=== PATIENT | male | born 1980 | race Caucasian/White ===

== ENCOUNTER 2017-01-14 05:38 | Emergency (ER) | payer OTHER ==
[~2017-01-14] VITALS: Ht 180.3 cm; Wt 69.1 kg
[~2017-01-14 05:38] MED LIST: ATV/1 PO; CITA20TA9 PO; GABA800T PO; MTR800 PO
[2017-01-14 05:43] VITALS: TEMP 37; Ht 180.3 cm; Wt 69.1 kg
[2017-01-14] MEDS ORDERED: LORAZEPAM 1 MG TAB SL STA ×3 (06:08→12:14)
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
[2017-01-14 06:24] LABS: BASO % 0.2 %; BASO ABS # 0.02 K/uL (0-0.2); COMPLETE YES; EOS % 1.7 %; HEMATOCRIT 46.6 % (42-52); IG% 0.3 %; LYMPH % 29.7 %; LYMPH ABS # 3.06 K/uL (1.2-3.4); MEAN CELL VOLUME 96.9 fL (80-100); MEAN CORPUSCULAR HEMOGLOBIN 32.8 pg (25-34); MEAN CORPUSCULAR HGB CONC 33.9 g/dl (32-36); MEAN PLATELET VOLUME 8.8 fL (7.4-10.4); MONO % 6.7 %; NEUT % 61.4 %; PLATELET COUNT 296 K/uL (130-400); RED BLOOD COUNT 4.81 M/uL (4.7-6.1)
[2017-01-14] MEDS ORDERED: BUPR1SUB23 SL (06:39)
[2017-01-14] MEDS ORDERED: GABA-113 PO (06:40)
[2017-01-14 06:41] LABS: URINE APPEARANCE CLEAR (CLEAR); URINE BILIRUBIN NEG (NEG); URINE COLOR DK YELLOW; URINE EPITHELIAL CELL AUTO 0-5 /lpf (0-5); URINE NITRITE NEG (NEG); URINE PH 6.5 (4.5-7.5); URINE SPECIFIC GRAVITY 1.026 (1.000-1.030); UROBILINOGEN NEG (NEG); ZZUR CULT IF INDIC CLEAN CATCH NO
[2017-01-14] MEDS ORDERED: VENL75CA PO (06:43)
[2017-01-14 06:44] LABS: MANUAL MICROSCOPIC REQUIRED? NO; REVIEW REQ? NO
[2017-01-14 06:46] LABS: BUN/CREATININE RATIO 15.5 (10-20); CALCIUM 8.9 mg/dl (8.5-10.1); CREATININE 1.03 mg/dl (0.60-1.40); POTASSIUM 3.9 mmol/L (3.5-5.1)
[2017-01-14 06:51] LABS: ACETAMINOPHEN < 2 ug/ml (10-30)
[2017-01-14 06:57] LABS: ALB/GLOB RATIO 0.8 (0.9-2); THYROID STIMULATING HORMONE 6.97 uIu/ml (0.300-4.500)
[2017-01-14 07:07] LABS: BENZODIAZEPINE, URINE NEG (NEG); COCAINE,URINE NEG (NEG); PHENCYCLIDINE, URINE NEG (NEG)
[2017-01-14] MEDS ORDERED: NICOTINE 21 MG/24 HR TDSY TD STA (08:29)
[2017-01-14] MEDS ORDERED: NICOTINE POLACRILEX 2 MG GUM MT STA (08:29)
[2017-01-14] MEDS ORDERED: CLONIDINE HCL 0.3 MG/24 HR TRANSDERM SYS TD STA (08:29)
[2017-01-14 12:50] VITALS: BP 141/84; PULSE 95; O2SAT 99
[2017-01-16 01:45] LABS: COD UR NEGATIVE NG/ML (CUTOFF=50); HYDROCOD UR NEGATIVE NG/ML (CUTOFF=50); HYDROMOR UR NEGATIVE NG/ML (CUTOFF=50); MORPHINE UR 215 NG/ML (CUTOFF=50); NORHYDROCODONE CONF UR NEGATIVE NG/ML (CUTOFF=50); OXYMORPH UR NEGATIVE NG/ML (CUTOFF=50)
== END 2017-01-14 12:50 ==
LOC: C.EDB 05:39 → C.EDA 12:50
DX: R45.851 Suicidal ideations (principal); F32.9 Major depressive disorder, single episode, unspecified; F41.9 Anxiety disorder, unspecified; F19.10 Other psychoactive substance abuse, uncomplicated; F43.10 Post-traumatic stress disorder, unspecified; Z83.3 Family history of diabetes mellitus; F17.200 Nicotine dependence, unspecified, uncomplicated

== ENCOUNTER 2017-02-27 20:06 | Emergency (ER) | payer OTHER ==
[~2017-02-27] VITALS: Ht 180.3 cm; Wt 65.2 kg
[~2017-02-27 20:06] MED LIST changes: -ATV/1 PO; +BUPR1SUB23 SL; -CITA20TA9 PO; +GABA-113 PO; -GABA800T PO
[2017-02-27 20:09] VITALS: TEMP 36.5; Ht 180.3 cm; Wt 65.2 kg
[2017-02-27] MEDS ORDERED: LORAZEPAM 1 MG TAB SL STA (20:23)
[2017-02-27] MEDS ORDERED: MULTI-VITAMIN INFUSION INJ 10 ML, THIAMINE HCL INJ 100 MG, FoLIC ACID INJ 1 MG in SODIU... IV ONE (20:30)
[2017-02-27] MEDS ORDERED: CLONIDINE HCL 0.1 MG TAB PO ONE (20:30)
[2017-02-27] MEDS ORDERED: CLONIDINE HCL 0.1 MG TAB ONE (20:33)
--- NOTE | 2017-02-27 20:47 | EMERGENCY ROOM VISIT NOTE ---
History Report prepared by Summer: Raudel Denton Under the Supervision of: Dr. Krishna Mahoney M.D. First contact with patient: 20:20 Chief Complaint: DETOX REQUEST Stated Complaint: DRUG AND ALCOHOL Nursing Triage Summary: states he missed his appt at the methadone clinic. requests detox tonight. has been using for a " long time." History of Present Illness The patient is a 36 year old male who presents to the Emergency Room with an episode of an opiate detox request today. Per friend, the patient has been going through some mental health, alcohol, and drug related issues for most of his life. He notes that the patient was talked into getting treatment today. The patient states that drug abuse is his primary concern, but notes that he also drinks alcohol occasionally. He notes that the last time he took an opiate was three days ago and reports that he injected it. The patient states that he is on a Methadone program, where he is currently taking 35mg of Methadone daily. He notes that he missed today and has been feeling bad--withdrawing. He reports that he drank three beers about eight hours ago because he missed his methadone treatment. He notes that he was admitted as an inpatient for drug and alcohol abuse five years ago. He complains of irritability and a sore throat, but denies any suicidal ideations. Source of History: patient Onset: today Position: other (global) Quality: other (opiate detox request) Timing: other (an episode) Associated Symptoms: + sorethroat Note: He complains of opiate abuse, mild alcohol consumption, and irritability. He denies any suicidal ideations. Review of Systems See HPI for pertinent positives & negatives. A total of 10 systems reviewed and were otherwise negative. Past Medical & Surgical Medical Problems: (1) Alcohol abuse (2) Anxiety (3) Chronic intravenous drug abuse (4) Chronic pain related to pelvic fracture (5) Opioid abuse (6) PTSD (post-traumatic stress disorder) (7) Spontaneous pneumothorax (8) Tobacco abuse Surgical Problems: (1) Total replacement of hip Family History Diabetes mellitus FHx: cancer Social History Smoking Status: Current Every Day Smoker Alcohol Use: occasionally Drug Use: other Marital Status: single Housing Status: unknown Occupation Status: unemployed Current/Historical Medications Scheduled Buprenorphine Hcl-Naloxone Hcl (Suboxone 8-2 Mg), 8 MG SL BID Gabapentin (Neurontin), 300 MG PO TID Scheduled PRN Ibuprofen (Ibuprofen), 800 MG PO Q8 PRN for Pain Allergies Coded Allergies: Penicillins (Verified Allergy, Unknown, 01/30/17) Cephalexin (Verified Adverse Reaction, Unknown, gi symptoms, 01/30/17) pt Physical Exam Vital Signs Date Time Temp Pulse Resp B/P (MAP) Pulse Ox O2 Delivery O2 Flow Rate FiO2 02/27/17 23:01 73 18 113/70 98 Room Air 02/27/17 22:09 80 18 130/78 99 Room Air 02/27/17 21:09 78 02/27/17 21:02 99 Room Air 02/27/17 20:58 80 20 119/72 98 02/27/17 20:09 36.5 86 18 131/62 94 Room Air Physical Exam GENERAL: Patient is in no acute distress. Alcohol on his breath. HEENT: No acute trauma, normocephalic atraumatic, mucous membranes moist, no nasal congestion, no scleral icterus. NECK: No stridor, no adenopathy, no meningismus, trachea is midline. LUNGS: Clear to auscultation bilaterally, no wheeze, no rhonchi, breath sounds equal. HEART: Without murmurs gallops or rubs, regular rate and rhythm. ABDOMEN: Soft, nontender, bowel sounds positive, no hernias, no peritonitis. EXTREMITIES: No cyanosis or edema, full range of motion of all the joints without pain or difficulty, no signs for acute trauma. NEUROLOGIC: Oriented x 3, no acute motor or sensory deficits, no focal weakness. Moderately intoxicated with alcohol, slight speech slur. SKIN: No rash, no jaundice, no diaphoresis. PSYCH: Denies suicidality, voluntary, cooperative. Medical Decision & Procedures Laboratory Results 02/27/17 20:40 02/27/17 20:40 Test 02/27/17 20:40 02/27/17 20:43 Red Blood Count 4.38 M/uL (4.7-6.1) Mean Corpuscular Volume 94.5 fL (80-100) Mean Corpuscular Hemoglobin 32.6 pg (25-34) Mean Corpuscular Hemoglobin Concent 34.5 g/dl (32-36) RDW Standard Deviation 43.1 fL (36.4-46.3) RDW Coefficient of Variation 12.5 % (11.5-14.5) Mean Platelet Volume 8.8 fL (7.4-10.4) Anion Gap 9.0 mmol/L (3-11) Est Creatinine Clear Calc Drug Dose 97.0 ml/min Estimated GFR () 114.7 Estimated GFR (Non- 99.0 BUN/Creatinine Ratio 17.9 (10-20) Calcium Level 9.0 mg/dl (8.5-10.1) Total Bilirubin 0.8 mg/dl (0.2-1) Aspartate Amino Transf (AST/SGOT) 89 U/L (15-37) Alanine Aminotransferase (ALT/SGPT) 68 U/L (12-78) Alkaline Phosphatase 114 U/L (45-117) Total Protein 7.9 gm/dl (6.4-8.2) Albumin 3.9 gm/dl (3.4-5.0) Globulin 4.0 gm/dl (2.5-4.0) Albumin/Globulin Ratio 1.0 (0.9-2) Thyroid Stimulating Hormone (TSH) 2.500 uIu/ml (0.300-4.500) Salicylates Level 1.9 mg/dl (2.8-20) Acetaminophen Level < 2 ug/ml (10-30) Ethyl Alcohol mg/dL 36.8 mg/dl (0-3) Laboratory results reviewed by me. Medications Administered Medications (Trade) Dose Ordered Sig/Ren Route Start Time Stop Time Status Last Admin Dose Admin Multivitamins 10 ml/Thiamine HCl 100 mg/Folic Acid 1 mg/Sodium Chloride 1,011.2 ml @ 500 mls/ hr Q2H2M ONCE IV 02/27/17 20:30 02/27/17 22:31 DC 02/27/17 20:54 500 MLS/HR Clonidine HCl (Catapres Tab) 0.1 mg NOW ONCE PO 02/27/17 20:30 02/27/17 20:31 DC 02/27/17 20:44 0.1 MG Lorazepam (Ativan Tab) 1 mg NOW STAT SL 02/27/17 20:23 02/27/17 20:28 DC 02/27/17 20:44 1 MG ED Course 2020: The patient was evaluated in room A7. A complete history and physical exam was performed. 2022: Lorazepam 1mg SL, Clonidine HCl 0.1mg PO 4: I reevaluated the patient. He is currently sleeping. 0030: The patient was signed out to Dr. Glover at the change of shift. Medical Decision Differential diagnoses include: drug and alcohol abuse, alcohol intoxication, dehydration, electrolyte imbalance, suicidal ideation and infection. There is no leukocytosis or concerning anemia. No significant electrolyte abnormality, kidney failure or hepatitis. The patient appears to be in a euthyroid state. Aspirin and Tylenol levels were not significantly elevated. Alcohol level was elevated slightly, consistent with his alcohol use today. Urine tox is pending as the patient has not provided a urine sample. The patient was not suicidal. He did want care though for his drug and alcohol addiction. He received a liter of IV saline combined with multivitamins, thiamine and folate. He received oral clonidine and oral Ativan. The patient has done well, he is currently sleeping. The psychiatric case management team is aware and will be assessing the patient once he is more sober. The patient's case is being assumed by Dr. Glover. He has assumed care at the change of shift. Medication Reconcilliation Current Medication List: was personally reviewed by me Blood Pressure Screening Patient's blood pressure: Elevated blood pressure Blood pressure disposition: Elevated BP felt to be situational Impression Primary Impression: Drug abuse Additional Impression: Alcohol abuse Scribe Attestation The scribe's documentation has been prepared under my direction and personally reviewed by me in its entirety. I confirm that the note above accurately reflects all work, treatment, procedures, and medical decision making performed by me. Departure Information Dispostion Still a Patient (The patient was signed out to Dr. Glover at the change of shift.) Referrals No Doctor, Assigned (PCP) Patient Instructions My [facility] Problem Qualifiers
[2017-02-27 21:02] VITALS: O2SAT 99
[2017-02-27 21:02] LABS: HEMATOCRIT 41.4 % (42-52); MEAN CELL VOLUME 94.5 fL (80-100); MEAN CORPUSCULAR HEMOGLOBIN 32.6 pg (25-34); MEAN CORPUSCULAR HGB CONC 34.5 g/dl (32-36); MEAN PLATELET VOLUME 8.8 fL (7.4-10.4); PLATELET COUNT 239 K/uL (130-400); RED BLOOD COUNT 4.38 M/uL (4.7-6.1); WHITE BLOOD COUNT 6.95 K/uL (4.8-10.8)
[2017-02-27 21:20] LABS: BUN/CREATININE RATIO 17.9 (10-20); CREATININE 0.99 mg/dl (0.60-1.40); POTASSIUM 3.4 mmol/L (3.5-5.1)
[2017-02-27 21:23] LABS: ACETAMINOPHEN < 2 ug/ml (10-30)
[2017-02-27 21:31] LABS: THYROID STIMULATING HORMONE 2.5 uIu/ml (0.300-4.500)
[2017-02-28 03:35] LABS: URINE APPEARANCE CLEAR (CLEAR); URINE BILIRUBIN NEG (NEG); URINE COLOR YELLOW; URINE NITRITE NEG (NEG); URINE PH 5.5 (4.5-7.5); URINE SPECIFIC GRAVITY 1.011 (1.000-1.030); UROBILINOGEN NEG (NEG); ZZUR CULT IF INDIC CLEAN CATCH NO
[2017-02-28 03:46] LABS: MANUAL MICROSCOPIC REQUIRED? NO; REVIEW REQ? NO
[2017-02-28 03:56] LABS: BENZODIAZEPINE, URINE POS (NEG); COCAINE,URINE NEG (NEG); PHENCYCLIDINE, URINE NEG (NEG)
--- NOTE | 2017-02-28 04:49 | EMERGENCY ROOM VISIT NOTE ---
ED Visit Note First contact with patient: 01:50 Patient seen and evaluated at 4:48 AM. Patient has discussed this evaluation with the crisis counselor and he would like to go to detox. Patient is currently in no distress no suicidal or homicidal ideation. Crisis counselor states that the patient has an uninsured status and will be given outpatient forms for him to contact rehabilitation. Patient is stable for discharge at 4: 55 AM Problem List Medical Problems: (1) Alcohol abuse Status: Chronic (2) Anxiety Status: Chronic (3) Chronic intravenous drug abuse Status: Chronic (4) Chronic pain related to pelvic fracture Status: Chronic (5) Opioid abuse Status: Chronic (6) PTSD (post-traumatic stress disorder) Status: Chronic (7) Spontaneous pneumothorax Status: Resolved (8) Tobacco abuse Status: Chronic Surgical Problems: (1) Total replacement of hip Status: Resolved Current/Historical Medications Scheduled Buprenorphine Hcl-Naloxone Hcl (Suboxone 8-2 Mg), 8 MG SL BID Gabapentin (Neurontin), 300 MG PO TID Scheduled PRN Ibuprofen (Ibuprofen), 800 MG PO Q8 PRN for Pain Allergies Coded Allergies: Penicillins (Verified Allergy, Unknown, 01/30/17) Cephalexin (Verified Adverse Reaction, Unknown, gi symptoms, 01/30/17) pt Vital Signs Date Time Temp Pulse Resp B/P (MAP) Pulse Ox O2 Delivery O2 Flow Rate FiO2 02/28/17 03:02 80 122/73 02/28/17 02:01 79 18 116/76 96 Room Air 02/28/17 01:26 74 02/28/17 01:05 76 18 122/83 96 Room Air 02/28/17 00:05 81 18 125/82 98 Room Air 02/27/17 23:01 73 18 113/70 98 Room Air 02/27/17 22:09 80 18 130/78 99 Room Air 02/27/17 21:09 78 02/27/17 21:02 99 Room Air 02/27/17 20:58 80 20 119/72 98 02/27/17 20:09 36.5 86 18 131/62 94 Room Air Laboratory Results 02/27/17 20:40 02/27/17 20:40 Test 02/27/17 20:40 02/27/17 20:43 02/28/17 03:21 Red Blood Count 4.38 M/uL (4.7-6.1) Mean Corpuscular Volume 94.5 fL (80-100) Mean Corpuscular Hemoglobin 32.6 pg (25-34) Mean Corpuscular Hemoglobin Concent 34.5 g/dl (32-36) RDW Standard Deviation 43.1 fL (36.4-46.3) RDW Coefficient of Variation 12.5 % (11.5-14.5) Mean Platelet Volume 8.8 fL (7.4-10.4) Anion Gap 9.0 mmol/L (3-11) Est Creatinine Clear Calc Drug Dose 97.0 ml/min Estimated GFR () 114.7 Estimated GFR (Non- 99.0 BUN/Creatinine Ratio 17.9 (10-20) Calcium Level 9.0 mg/dl (8.5-10.1) Total Bilirubin 0.8 mg/dl (0.2-1) Aspartate Amino Transf (AST/SGOT) 89 U/L (15-37) Alanine Aminotransferase (ALT/SGPT) 68 U/L (12-78) Alkaline Phosphatase 114 U/L (45-117) Total Protein 7.9 gm/dl (6.4-8.2) Albumin 3.9 gm/dl (3.4-5.0) Globulin 4.0 gm/dl (2.5-4.0) Albumin/Globulin Ratio 1.0 (0.9-2) Thyroid Stimulating Hormone (TSH) 2.500 uIu/ml (0.300-4.500) Salicylates Level 1.9 mg/dl (2.8-20) Acetaminophen Level < 2 ug/ml (10-30) Ethyl Alcohol mg/dL 36.8 mg/dl (0-3) Urine Color YELLOW Urine Appearance CLEAR (CLEAR) Urine pH 5.5 (4.5-7.5) Urine Specific [place] 1.011 (1.000-1.030) Urine Protein NEG (NEG) Urine Glucose (UA) NEG (NEG) Urine Ketones NEG (NEG) Urine Occult Blood NEG (NEG) Urine Nitrite NEG (NEG) Urine Bilirubin NEG (NEG) Urine Urobilinogen NEG (NEG) Urine Leukocyte Esterase NEG (NEG) Urine Opiates Screen NEG (NEG) Urine Methadone, Qualitative POS (NEG) Urine Barbiturates NEG (NEG) Urine Phencyclidine (PCP) Level NEG (NEG) Ur Amphetamine/Methamphetamine POS (NEG) MDMA (Ecstasy) Screen NEG (NEG) Urine Benzodiazepines Screen POS (NEG) Urine Cocaine Metabolite NEG (NEG) Urine Marijuana (THC) NEG (NEG) Medications Administered Medications (Trade) Dose Ordered Sig/Ren Route Start Time Stop Time Status Last Admin Dose Admin Multivitamins 10 ml/Thiamine HCl 100 mg/Folic Acid 1 mg/Sodium Chloride 1,011.2 ml @ 500 mls/ hr Q2H2M ONCE IV 02/27/17 20:30 02/27/17 22:31 DC 02/27/17 20:54 500 MLS/HR Clonidine HCl (Catapres Tab) 0.1 mg NOW ONCE PO 02/27/17 20:30 02/27/17 20:31 DC 02/27/17 20:44 0.1 MG Lorazepam (Ativan Tab) 1 mg NOW STAT SL 02/27/17 20:23 02/27/17 20:28 DC 02/27/17 20:44 1 MG Departure Information Impression Primary Impression: Drug abuse Additional Impression: Alcohol abuse Dispostion Still a Patient Referrals No Doctor, Assigned (PCP) Patient Instructions [facility] Problem Qualifiers
[2017-02-28 05:06] VITALS: BP 136/74; PULSE 85; O2SAT 98
== END 2017-02-28 05:07 | disposition home or self-care (01) ==
LOC: C.EDB 20:08 → C.EDA 02-28 05:07
DX: F11.10 Opioid abuse, uncomplicated (principal); F10.10 Alcohol abuse, uncomplicated; G89.29 Other chronic pain; F17.200 Nicotine dependence, unspecified, uncomplicated; Z96.649 Presence of unspecified artificial hip joint; Z83.3 Family history of diabetes mellitus; Z80.9 Family history of malignant neoplasm, unspecified

== ENCOUNTER 2017-03-27 15:43 | Inpatient (IN) | payer OTHER ==
[~2017-03-27] VITALS: Ht 180.3 cm; Wt 62.0 kg
[2017-03-27] MEDS ORDERED: LORAZEPAM 1 MG TAB SL STA (16:11)
[2017-03-27] MEDS ORDERED: METH10TA2 PO (16:28)
[2017-03-27 17:05] LABS: ALBUMIN 3.9 gm/dl (3.4-5.0); CREATININE 0.97 mg/dl (0.60-1.40); POTASSIUM 4.1 mmol/L (3.5-5.1)
[2017-03-27 17:22] LABS: BASO % 0.2 %; BASO ABS # 0.02 K/uL (0-0.2); EOS ABS # 0.08 K/uL (0-0.5); HEMATOCRIT 42.2 % (42-52); HEMOGLOBIN 14.3 g/dL (14.0-18.0); IG# 0.01 K/uL (0.00-0.02); LYMPH % 17.9 %; LYMPH ABS # 1.49 K/uL (1.2-3.4); MEAN CELL VOLUME 96.6 fL (80-100); MEAN CORPUSCULAR HEMOGLOBIN 32.7 pg (25-34); MEAN CORPUSCULAR HGB CONC 33.9 g/dl (32-36); MEAN PLATELET VOLUME 9.2 fL (7.4-10.4); MONO % 5.9 %; MONO ABS # 0.49 K/uL (0.11-0.59); NEUT % 74.9 %; NEUT ABS # 6.23 K/uL (1.4-6.5); PLATELET COUNT 233 K/uL (130-400); RED CELL DISTRIBUTION WIDTH CV 12.7 % (11.5-14.5); RED CELL DISTRIBUTION WIDTH SD 44.3 fL (36.4-46.3); WHITE BLOOD COUNT 8.32 K/uL (4.8-10.8)
[2017-03-27 18:38] VITALS: O2SAT 98
[2017-03-27] MEDS ORDERED: NURSING VERBAL MED ORDER ONE (18:45)
[2017-03-27] MEDS ORDERED: hydrOXYzine HCL 25 MG TAB PO PRN (19:00)
[2017-03-27] MEDS ORDERED: ALUMINUM/MAGNESIUM SUSP 30 ML UDC PO PRN (19:00)
[2017-03-27] MEDS ORDERED: ACETAMINOPHEN 325 MG TAB PO PRN (19:00)
[2017-03-27] MEDS ORDERED: MAGNESIUM HYDROXIDE SUSP 30 ML UDC PO PRN (19:00)
[2017-03-27] MEDS ORDERED: BISMUTH SUBSALICYLATE PER ML OMNICELL CHARGE PO PRN (19:00)
[2017-03-27] MEDS ORDERED: SODIUM CHLORIDE 0.65% NA SOLN 45 ML (OCEAN) PRN (19:00)
--- NOTE | 2017-03-27 19:15 | NUR ---
Pt presented to the ER via police after making suicidal statements to his mother, who wrote a 302 petitioning statement. As pt was unwilling to sign in voluntarily, he was admitted to the unit on a 302 involuntary commitment at 1835 and started on suicide precautions. Pt has been uncooperative both in the ER and on the unit. When asked to participate in the admission interview process, pt declined asking staff to "leave me alone". He is irritable, with underlying agitation. He was started on the AWSS protocol, as he does admit to drinking alcohol, but refused to discuss the details. He also admits to a long history of substance abuse. Since admission, pt has been in his room with the door closed and refusing to interact with staff.
[2017-03-27 20:03] VITALS: BP 117/68; PULSE 86; TEMP 37; BMI 19.1
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
[2017-03-27 22:08] VITALS: BP 110/64; PULSE 75; TEMP 36.7
[2017-03-27 23:06] VITALS: Ht 180.3 cm; Wt 62.0 kg
--- NOTE | 2017-03-28 02:25 | NUR ---
Patient's admission orders were reviewed.
[2017-03-28 06:53] VITALS: BP_SYST 101; BP_SYST 111; BP_DIAS 68; BP_DIAS 71; PULSE 61; PULSE 69; TEMP 36.6
--- NOTE | 2017-03-28 09:10 | NUR ---
Spoke with [facility] to confirm Methadone dose. The nurse stated last dose was given on 03/25 and was 45 mg. He should continue at this dose unless he misses a dose today and then he will need to decrease his dose if he does not get it today due to being off of it for 3 days.
[2017-03-28] MEDS ORDERED: LORAZEPAM 1 MG TAB PO PRN (09:30)
--- NOTE | 2017-03-28 10:00 | NUR ---
Pt's Father's girlfriend, Carmen, stopped by on the unit. This nurse spoke to her. Carmen stated pt's father has stage IV lung cancer with mets to bone and was told he had approximately 5 months left to live as of January. Carmen reported pt's father fell yesterday resulting in broken femur. Pt not eligible for surgery and is currently hospitalized here in room 376. Carmen also stated plans were for pt to be transferred to a assisted post discharge on hospice and father would be bedridden remainder of life. Pt currently irritable and unpredictable at this point. It was decided by staff that news of pt's father would be given after Methadone given and pt less irritable and stable. Pt has remained in his room all morning.
[2017-03-28] MEDS ORDERED: IBUPROFEN 600 MG TAB PO PRN (10:15)
[2017-03-28] MEDS: METHADONE HCL 10 MG TAB PO SCH (10:28)
[2017-03-28] MEDS ORDERED: NICOTINE POLACRILEX 2 MG GUM MT PRN (10:30)
[2017-03-28 10:32] VITALS: BP 120/78; PULSE 63; TEMP 36.9
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
[2017-03-28 12:29] VITALS: BP 120/69; PULSE 71; TEMP 36.9
--- NOTE | 2017-03-28 12:56 | NUR ---
Dr. Pollard made aware of pt's father. Dr. Pollard stated if he continues to remain uncooperative he would be willing to speak to pt regarding his father since he responded well to him in am. Pt continues to remain irritable and agitated and started becoming uncooperative when attempts to complete TR and Social history.
[2017-03-28] MEDS: GABAPENTIN 300 MG CAP PO SCH ×2 (13:16→21:45)
[2017-03-28] MEDS: NICOTINE 21 MG/24 HR TDSY TD SCH (13:16)
[2017-03-28 16:17] VITALS: BP 118/74; PULSE 65; TEMP 36.7
--- NOTE | 2017-03-28 19:08 | NUR ---
Spoke with patient's girlfriend Hien for collateral. She does not have any safety concerns with potential discharge. She said he does not have access to guns. She does feel he needs outpatient follow-up to be set up before he leaves the hospital as he does not seem to be able to get this arranged on his own. She stressed that before he leaves the hospital (after he is discharged) he should go upstairs and visit his father who is terminally ill.
[2017-03-28 21:09] VITALS: BP 122/76; PULSE 70; TEMP 36.5
--- NOTE | 2017-03-28 22:23 | NUR ---
Pt has spent the majority of the evening in his room. He has been pleasant and appropriate when interacting with staff/peers. He continued to state feeling stomach upset r/t opiate withdrawal and declined supper. He did state he is feeling physically better as the evening has progressed. He took his HS meds without issue. He denies thoughts of self harm and is hopeful for discharge soon. He remains on suicide precautions.
[2017-03-29] MEDS: hydrOXYzine HCL 25 MG TAB PO PRN ×2 (00:40→01:45)
--- NOTE | 2017-03-29 00:42 | NUR ---
don states he has been awake for awhile now. he asked for a sleep med. kanika maldonado was provided for sleep aid.
--- NOTE | 2017-03-29 01:55 | NUR ---
don requested and received his repeat hs prn dose of vistaril for sleep aid. he remains to not feel sleepy yet. he is anticipating his discharge tomorrow.
--- NOTE | 2017-03-29 02:53 | NUR ---
don appeared to be asleep on 0230 rounds.
--- NOTE | 2017-03-29 04:22 | NUR ---
24 hour chart orders reviewed
[2017-03-29] MEDS: GABAPENTIN 300 MG CAP PO SCH (09:49)
[2017-03-29] MEDS: NICOTINE 21 MG/24 HR TDSY TD SCH (09:49)
[2017-03-29] MEDS: METHADONE HCL 10 MG TAB PO SCH (09:49)
[2017-03-29] MEDS ORDERED: GABA-113 PO (09:50)
[2017-03-29] MEDS ORDERED: ATR25 PO (09:50)
[2017-03-29] MEDS ORDERED: NICO21DI4 TD (09:50)
[2017-03-29] MEDS ORDERED: NCR2 MT (09:50)
--- NOTE | 2017-03-29 09:50 | NUR ---
Disch summary: Pt denies thoughts/intent to harm herself. She has been motivated for treatment. Has attended programming. is supportive. Depressive symptoms improving. Aftercare arranged. Pt completed safety plan. Is more hopeful with improved affect. Addendum: 03/29/17 at 1000 by Radha Gagnon RN disregard note. wrong pt.
[2017-03-29 09:51] VITALS: BP 134/83; PULSE 80; TEMP 36.5
--- NOTE | 2017-03-29 10:05 | NUR ---
Disch summary: Pt denies thoughts/intent to harm self. Pt was recently disch from rehab, is prescribed methadone out pt. He has follow up appts and contacts.
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
--- NOTE | 2017-03-29 11:15 | NUR ---
Pt disch home. Disch instructions provided, verbalized understanding. Belongings returned. Prescriptions given.
== END 2017-03-29 11:15 | disposition home or self-care (01) | DRG 897 ==
LOC: EDBD 15:43 → EDSEX 15:43 → C.EDA 15:44 → C.MHU 18:40
PROVIDERS: ADMIT Psychiatry & Neurology Psychiatry; ATTEND Psychiatry & Neurology Psychiatry
DX: F11.20 Opioid dependence, uncomplicated (principal); R45.851 Suicidal ideations; F17.210 Nicotine dependence, cigarettes, uncomplicated; Z79.899 Other long term (current) drug therapy; Z81.8 Family history of other mental and behavioral disorders

== ENCOUNTER 2017-08-01 09:19 | Emergency (ER) | payer OTHER ==
[~2017-08-01] VITALS: Ht 180.3 cm; Wt 66.6 kg
[~2017-08-01 09:19] MED LIST changes: +ATR25 PO; -BUPR1SUB23 SL; +METH10TA2 PO; +NCR2 MT; +NICO21DI4 TD
[2017-08-01 09:26] VITALS: TEMP 36.9; Ht 180.3 cm; Wt 66.6 kg
[2017-08-01] MEDS ORDERED: LORAZEPAM 1 MG TAB SL STA (09:36)
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
[2017-08-01] MEDS ORDERED: ONDANSETRON 4MG OD TAB PO ONE (09:45)
--- NOTE | 2017-08-01 10:04 | DIAGNOSTIC IMAGING REPORT ---
CHEST ONE VIEW PORTABLE HISTORY: 36 years-old Male Overdose acute drug overdose COMPARISON: Chest radiograph 09/07/2014 TECHNIQUE: Portable AP view of the chest FINDINGS: Cardiomediastinal and hilar silhouettes are within normal limits. No pneumothorax, pleural effusion, focal airspace consolidation or overt pulmonary edema. Bones of the chest appear grossly intact. IMPRESSION: No acute process. The above report was generated using voice recognition software. It may contain grammatical, syntax or spelling errors. Electronically signed by: Ash Carmen M.D. 08/01/2017 10:03 AM Dictated Date/Time: 08/01/2017 10:02 AM
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
[2017-08-01 10:32] LABS: BASO % 0.2 %; BASO ABS # 0.02 K/uL (0-0.2); EOS % 0.2 %; EOS ABS # 0.02 K/uL (0-0.5); HEMATOCRIT 41.2 % (42-52); HEMOGLOBIN 14.4 g/dL (14.0-18.0); IG# 0.01 K/uL (0.00-0.02); LYMPH ABS # 0.97 K/uL (1.2-3.4); MEAN CELL VOLUME 93.2 fL (80-100); MEAN CORPUSCULAR HEMOGLOBIN 32.6 pg (25-34); MEAN PLATELET VOLUME 8.7 fL (7.4-10.4); MONO ABS # 0.73 K/uL (0.11-0.59); NEUT % 78.5 %; NEUT ABS # 6.33 K/uL (1.4-6.5); PLATELET COUNT 236 K/uL (130-400); RED CELL DISTRIBUTION WIDTH CV 13.3 % (11.5-14.5); RED CELL DISTRIBUTION WIDTH SD 45.8 fL (36.4-46.3); WHITE BLOOD COUNT 8.08 K/uL (4.8-10.8)
[2017-08-01] MEDS ORDERED: GABA-113 PO (10:34)
[2017-08-01] MEDS ORDERED: NICO4GUM7 MT (10:34)
[2017-08-01] MEDS ORDERED: HYDR-3124 PO ×2 (10:34)
[2017-08-01] MEDS ORDERED: NICO21DI35 TD (10:34)
[2017-08-01 10:42] LABS: PTT PATIENT 27.8 SECONDS (21.0-31.0)
[2017-08-01 10:52] LABS: ALBUMIN 4.1 gm/dl (3.4-5.0); ALT/SGPT 42 U/L (12-78); AST/SGOT 43 U/L (15-37); BLOOD UREA NITROGEN 15 mg/dl (7-18); CALCIUM 9.2 mg/dl (8.5-10.1); CARBON DIOXIDE 25 mmol/L (21-32); CREATININE 0.89 mg/dl (0.60-1.40); GLUCOSE 88 mg/dl (70-99); LIPASE 53 U/L (73-393); POTASSIUM 3.8 mmol/L (3.5-5.1); SODIUM 135 mmol/L (136-145)
[2017-08-01 10:57] LABS: ALKALINE PHOSPHATASE 97 U/L (45-117); CKMB 4.1 ng/ml (0.5-3.6); TOTAL PROTEIN 7.9 gm/dl (6.4-8.2)
[2017-08-01 12:42] VITALS: BP 113/73; PULSE 108; O2SAT 98
== END 2017-08-01 12:44 | disposition home or self-care (01) ==
LOC: C.EDB 09:20 → C.EDA 12:44
DX: S40.022A Contusion of left upper arm, initial encounter (principal); S40.021A Contusion of right upper arm, initial encounter; S20.419A Abrasion of unspecified back wall of thorax, initial encounter; Y04.0XXA Assault by unarmed brawl or fight, initial encounter; F11.20 Opioid dependence, uncomplicated; F32.9 Major depressive disorder, single episode, unspecified; Z91.14 Patient's other noncompliance with medication regimen; F41.9 Anxiety disorder, unspecified; F43.10 Post-traumatic stress disorder, unspecified; F17.200 Nicotine dependence, unspecified, uncomplicated; B19.20 Unspecified viral hepatitis C without hepatic coma; Z79.899 Other long term (current) drug therapy; Z88.0 Allergy status to penicillin; Z88.1 Allergy status to other antibiotic agents

== ENCOUNTER 2018-04-13 09:25 | Inpatient (IN) ==
[2018-04-13] MEDS ORDERED: SODIUM CHLORIDE 0.9% 1000ML 2,000 ML IV SCH (10:00)
--- NOTE | 2018-04-13 10:21 | XRay Report ---
XR chest 1V portable CLINICAL HISTORY: hypoxia, overdose dyspnea COMPARISON STUDY: 08/01/2017 FINDINGS: The bones soft tissues and hemidiaphragms are normal. The cardiomediastinal silhouette is n ormal. The lungs are clear. The pulmonary vasculature is normal. IMPRESSION: Negative chest. The above report was generated using voice recognition software. It may contain grammatical, syntax or spelling errors. Electronically signed by: Manohar Fontaine M.D. 04/13/2018 10:19 AM
[2018-04-13 10:22] LABS: Basophils # (auto) 0.03 K/uL (0-0.2); Basophils % (auto) 0.3 %; Eosinophils # (auto) 0.12 K/uL (0-0.5); Eosinophils % (auto) 1.1 %; Hematocrit (blood only) 43.7 % (42-52); Hemoglobin 14.8 g/dL (14.0-18.0); Immature Granulocytes # (auto) 0.02 K/uL (0.00-0.02); Immature Granulocytes % (auto) 0.2 %; Lymphocytes # (auto) 1.98 K/uL (1.2-3.4); Mean Corpuscular Hgb Conc 33.9 g/dL (32-36); Mean Corpuscular Volume 96.7 fL (80-100); Mean Platelet Volume 8.7 fL (7.4-10.4); Monocytes # (auto) 0.86 K/uL (0.11-0.59); Monocytes % (auto) 7.8 %; Neutrophils % (auto) 72.6 %; Platelet Count 222 K/uL (130-400); RDW Coefficient of Variation 12.9 % (11.5-14.5); RDW Standard Deviation 45.3 fL (36.4-46.3); Red Blood Count 4.52 M/uL (4.7-6.1); White Blood Count 11.01 K/uL (4.8-10.8)
[2018-04-13 10:40] LABS: Alanine Aminotransferase 64 U/L (12-78); Albumin Level 3.5 gm/dl (3.4-5.0); Aspartate Aminotransferase 158 U/L (15-37); BUN Creatinine Ratio 17.8 (10-20); Blood Urea Nitrogen 16 mg/dl (7-18); Calcium 8.5 mg/dl (8.5-10.1); Carbon Dioxide 27 mmol/L (21-32); Chloride 106 mmol/L (98-107); Creatinine Clr Calc Pharmacy 105.7 ml/min; Est GFR (Non-African American) 111.3; Glucose 71 mg/dl (70-99); Magnesium 2.5 mg/dl (1.8-2.4); Potassium 3.4 mmol/L (3.5-5.1); Sodium 140 mmol/L (136-145)
[2018-04-13 10:55] LABS: Alkaline Phosphatase 83 U/L (45-117); Bilirubin,Total 1.3 mg/dl (0.2-1); Creatine Kinase 4110 U/L (39-308); Creatine Kinase MB 46.6 ng/ml (0.5-3.6); Globulin 3.5 gm/dl (2.5-4.0); Troponin I < 0.015 ng/ml (0-0.045)
[2018-04-13 10:57] LABS: Acetaminophen < 2 ug/ml (10-30); Salicylate < 1.7 mg/dl (2.8-20)
[2018-04-13] MEDS ORDERED: SODIUM CHLORIDE 0.9% 1000ML 1,000 ML IV STA (11:02)
--- NOTE | 2018-04-13 11:24 | Emergency Department Note ---
Entered by Austin Vargas acting as a scribe for Rayray Vazquez MD ED Provider Note CHIEF COMPLAINT: Overdose HISTORY OF PRESENT ILLNESS: The patient is a 37 year old male presenting to the Emergency Department via EMS due to an overdose that occurred early this morning. The HPI is limited secondary to intoxication. Per nursing staff, after reading EMS report, the patient was found outside of a bank and states that the patient reports that last night he did two bags of K2, two bags of ecstasy, and consumed whiskey. Nursing also states that the patient has been a drug user for the past 20 years and has a history of meth and heroin use; his most recent use of meth being two days ago. Nursing also states that the patient has received 46 doses of Narcan in his lifetime. Pt denies any chest pain, nausea, vomiting, or abdominal pain. REVIEW OF SYSTEMS: See HPI for pertinent positives and negatives. ROS limited secondary to intoxication. PMHx/PSHx: Suicidal ideation, mood disorder, drug overdose, drug abuse, opioid abuse, acute renal failure, spontaneous pneumothorax, and PTSD. SOCIAL HISTORY: Patient lives at home. PHYSICAL EXAM: GENERAL: Sleepy, intoxicated, but arousable and in no distress. HENT: Normocephalic, atraumatic. Oropharynx unremarkable. EYES: Normal conjunctiva. Sclera non-icteric. NECK: Inspection normal. Non-tender. Supple. No nuchal rigidity. FROM. No masses. RESPIRATORY: Clear to auscultation. No wheezes. No rales. Normal respiratory effort. CARDIAC: Tachycardic. Normal rhythm. No murmurs. No rubs. Extremities warm and well perfused. Pulses equal. No JVD. GI: Soft, non-distended. No tenderness to palpation. No rebound or guarding. No masses. RECTAL: Deferred. MUSCULOSKELETAL: Atraumatic. Chest examination reveals no tenderness. The back is symmetrical on inspection without obvious abnormality. There is no CVA tenderness to palpation. No joint edema. Small 1 cm bruise and tenderness in left lumbar paraspinal area. LOWER EXTREMITIES: Calves are equal size bilaterally and non-tender. No edema. No discoloration. UPPER EXTREMITIES: Track tee and scattered bruising. NEURO: Altered sensorium. No sensory or motor deficits noted. SKIN: No rash or jaundice noted. EMERGENCY DEPARTMENT COURSE: 0943: Spoke with nursing who reported the patient has been a drug abuser for the past 20 years and was brought in via EMS after doing two bags of K2, two bags of ecstasy, and consuming whiskey. Past medical records reviewed. The patient was evaluated in room C3, and a complete history and physical examination were performed. 1103: I reassessed the patient and he is still intoxicated. 1113: I reviewed the patient's case with MYRANDA Schneider. Dr. Hartley, [facility], will evaluate the patient for further management. 1328: I spoke with Dr. aHrtley, [facility], and he stated that paramedics raised concern because the K2 has been associated with bleeding issues secondary to contamination with possible Warfarin like products. MEDICAL DECISION MAKING: Prior records/ancillary studies reviewed. Triage Nursing notes reviewed and agree them. Additional history obtained from EMS. The patient's history was concerning for altered mental status and probable overdose. Differential diagnosis: Etiologies such as toxicologic, infection, hypoglycemia, electrolyte abnormalities, cardiac sources, intracerebral event, neurologic, as well as others were entertained. Physical examination: The patient had altered sensorium. No trauma noted. ER treatment provided: IV NSS 2 L bolus IV hydration NSS 200 mL/hr Diagnostic interpretation by me: The electrocardiogram was negative for pathologic change. There was no QRS widening or interval prolongation. The labs revealed a mild leukocytosis on CBC. Chemistry panel was significant for rhabdomyolysis. Normal renal function. Lipase negative. Coags normal. Imaging studies: Chest x-ray was unremarkable. No acute disease. No pulmonary edema. The patient had a head CT performed and this was negative for intracranial pathology. The patient is altered. He admits to taking multiple substances. EMS raise concerns about the K2 being possibly tainted based upon reports from other incidents. Coags are currently normal. The patient has rhabdomyolysis. He is in need of hospitalization for further treatment to prevent serious medical complications. He is still requiring supplemental oxygen. Consultation: A consultation was placed with the hospitalist. The case was discussed and diagnostics were reviewed. The patient was evaluated in the ER for further treatment. IMPRESSION: Altered mental status, intentional drug overdose, rhabdomyolysis, hypoxia, lumbar back pain. PLAN: Admitted. Impression & Plan Drug overdose, Rhabdomyolysis, Hypoxia Past Med/Surg History Medical History Intravenous drug abuse, 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) PTSD (post-traumatic stress disorder) (Chronic) Spontaneous pneumothorax (Resolved) Opioid abuse (Chronic 08/21/12) Anxiety (Chronic) Pulmonary embolism (Resolved) Acute renal failure (Resolved) Alcohol abuse (Chronic) Alcohol intoxication (Resolved) Dehydration (Resolved) Depression (Chronic) Drug overdose (Resolved) Hepatitis C (Chronic) Nicotine dependence, cigarettes, uncomplicated (Chronic) Opioid use disorder, severe, dependence (Chronic) Stimulant intoxication (Resolved) Suicidal ideation (Resolved) Social History Current Living Situation: Family Other Information That Helps Us Care for You: No Feels Safe at Home: Yes Safety Concerns: Feels Safe At This Time Smoking Status: Current every day smoker Tobacco Type: cigarettes Tobacco Cessation Education Requested by Patient: No Hx Alcohol Use: Yes Alcohol type: beer Alcohol Intake Frequency: 3 or more drinks per day Beliefs That Will Affect Care: None Preferred Language: Frisian Communication Ability: Effective [employer] Area Supervisor Required: No Results & Data Vital Signs Vital Signs - 24 hr 04/13/18 09:37 04/13/18 09:45 04/13/18 10:08 Temperature 36.3 C L Temperature Source Oral Sepsis Recent Fever Within 48 Hours No Sepsis New/Unexplained Change in Mental Status No Sepsis Action Taken by Nursing No Action Required Pulse Rate 117 H Pulse Rate [Finger] Pulse Rhythm [Finger] Pulse Strength [Finger] Respiratory Rate 20 Respiratory Effort / Characteristics Respiratory Depth Respiratory Pattern Blood Pressure 144/84 H Blood Pressure [Left Arm] Blood Pressure [Right Arm] Blood Pressure Mean 104 Blood Pressure Mean [Left Arm] Blood Pressure Mean [Right Arm] Blood Pressure Position [Left Arm] Pulse Oximetry 97 88 L 88 L Oxygen Delivery Method Room Air Room Air Room Air Oxygen Flow Rate 2 04/13/18 10:55 04/13/18 11:37 04/13/18 12:33 Temperature Temperature Source Sepsis Recent Fever Within 48 Hours Sepsis New/Unexplained Change in Mental Status Sepsis Action Taken by Nursing Pulse Rate Pulse Rate [Finger] 98 H 80 80 Pulse Rhythm [Finger] Pulse Strength [Finger] Respiratory Rate 16 16 16 Respiratory Effort / Characteristics Respiratory Depth Respiratory Pattern Blood Pressure Blood Pressure [Left Arm] Blood Pressure [Right Arm] 116/77 126/78 111/82 Blood Pressure Mean Blood Pressure Mean [Left Arm] Blood Pressure Mean [Right Arm] 90 94 91 Blood Pressure Position [Left Arm] Pulse Oximetry 93 96 97 Oxygen Delivery Method Nasal Cannula Nasal Cannula Nasal Cannula Oxygen Flow Rate 2 2 2 04/13/18 14:13 04/13/18 14:46 04/13/18 15:09 Temperature 36.9 C 36.6 C Temperature Source Oral Oral Sepsis Recent Fever Within 48 Hours Sepsis New/Unexplained Change in Mental Status Sepsis Action Taken by Nursing Pulse Rate 72 Pulse Rate [Finger] 87 81 Pulse Rhythm [Finger] Regular Pulse Strength [Finger] Normal Respiratory Rate 16 16 18 Respiratory Effort / Characteristics Non-Labored Spontaneous Respiratory Depth Normal Respiratory Pattern Regular Blood Pressure 128/87 Blood Pressure [Left Arm] 124/87 Blood Pressure [Right Arm] 134/91 Blood Pressure Mean Blood Pressure Mean [Left Arm] 99 Blood Pressure Mean [Right Arm] 105 Blood Pressure Position [Left Arm] Lying Pulse Oximetry 96 100 99 Oxygen Delivery Method Room Air Room Air Room Air Oxygen Flow Rate 04/13/18 16:52 04/13/18 17:04 Temperature 36.2 C L Temperature Source Oral Sepsis Recent Fever Within 48 Hours Sepsis New/Unexplained Change in Mental Status Sepsis Action Taken by Nursing Pulse Rate 83 Pulse Rate [Finger] 96 H Pulse Rhythm [Finger] Regular Pulse Strength [Finger] Respiratory Rate 20 Respiratory Effort / Characteristics Non-Labored Spontaneous Respiratory Depth Normal Respiratory Pattern Regular Blood Pressure Blood Pressure [Left Arm] 145/98 H Blood Pressure [Right Arm] Blood Pressure Mean Blood Pressure Mean [Left Arm] 113 Blood Pressure Mean [Right Arm] Blood Pressure Position [Left Arm] Sitting Pulse Oximetry 98 Oxygen Delivery Method Room Air Oxygen Flow Rate Home Medications Current Medication List: was personally reviewed by me Laboratory Data Attestation: I reviewed the patient's lab results. Result diagrams: 04/13/18 10:03 04/13/18 15:06 Lab Results 04/13/18 04/13/18 04/13/18 Range/Units 10:03 10:03 10:03 WBC 11.01 H (4.8-10.8) K/uL RBC 4.52 L (4.7-6.1) M/uL Hgb 14.8 (14.0-18.0) g/dL Hct 43.7 (42-52) % MCV 96.7 (80-100) fL MCH 32.7 (25-34) pg MCHC 33.9 (32-36) g/dL RDW Std Deviation 45.3 (36.4-46.3) fL RDW Coeff of Agustin 12.9 (11.5-14.5) % Plt Count 222 (130-400) K/uL MPV 8.7 (7.4-10.4) fL Immature Gran % (Auto) 0.2 % Neut % (Auto) 72.6 % Lymph % (Auto) 18.0 % [place] % (Auto) 7.8 % Eos % (Auto) 1.1 % Baso % (Auto) 0.3 % Immature Gran # (Auto) 0.02 (0.00-0.02) K/uL Neut # (Auto) 8.00 H (1.4-6.5) K/uL Lymph # (Auto) 1.98 (1.2-3.4) K/uL [place] # (Auto) 0.86 H (0.11-0.59) K/uL Eos # (Auto) 0.12 (0-0.5) K/uL Baso # (Auto) 0.03 (0-0.2) K/uL PT (9.0-12.0) Seconds INR (0.9-1.1) Sodium (136-145) mmol/L Potassium (3.5-5.1) mmol/L Chloride (98-107) mmol/L Carbon Dioxide (21-32) mmol/L Anion Gap (3-11) BUN (7-18) mg/dl Creatinine (0.6-1.4) mg/dl Est Cr Clr Drug Dosing ml/min Est GFR ( Amer) Est GFR (Non-Af Amer) BUN/Creatinine Ratio (10-20) Glucose (70-99) mg/dl POC Glucose (70-99) Calcium (8.5-10.1) mg/dl Phosphorus (2.5-4.9) mg/dl Magnesium (1.8-2.4) mg/dl Total Bilirubin (0.2-1) mg/dl AST (15-37) U/L ALT (12-78) U/L Alkaline Phosphatase (45-117) U/L Total Creatine Kinase (39-308) U/L CK-MB (CK-2) (0.5-3.6) ng/ml CK/CKMB % Calc (0-3.0) Troponin I (0-0.045) ng/ml Total Protein (6.4-8.2) gm/dl Albumin (3.4-5.0) gm/dl Globulin (2.5-4.0) gm/dl Albumin/Globulin Ratio (0.9-2) Lipase (73-393) U/L Urine Color Urine Appearance (Clear) Urine pH (4.5-7.5) Ur Specific [place] (1.000-1.030) Urine Protein (Negative) Urine Glucose (UA) (Negative) Urine Ketones (Negative) Urine Blood (Negative) Urine Nitrite (Negative) Urine Bilirubin (Negative) Urine Urobilinogen (Negative) Ur Leukocyte Esterase (Negative) Urine WBC (Auto) (0-5) /hpf Urine RBC (Auto) (0-4) /hpf U Hyaline Cast (Auto) (0-5) /lpf U Epithel Cells (Auto) (0-5) /lpf Urine Bacteria (Auto) (Negative) Salicylates < 1.7 L (2.8-20) mg/dl Urine Opiates Screen (Neg) Ur Methadone, Qual (Neg) Acetaminophen < 2 L (10-30) ug/ml Urine Barbiturates (Neg) Ur Phencyclidine (PCP) (Neg) U Amphetamin/Meth Scrn (Neg) MDMA (Ecstasy) Screen (Neg) U Benzodiazepines Scrn (Neg) Ur Cocaine Metabolite (Neg) U Marijuana (THC) Screen (Neg) Ethyl Alcohol mg/dL < 3.0 (0-3) mg/dl 04/13/18 04/13/18 04/13/18 Range/Units 10:03 10:12 15:06 WBC (4.8-10.8) K/uL RBC (4.7-6.1) M/uL Hgb (14.0-18.0) g/dL Hct (42-52) % MCV (80-100) fL MCH (25-34) pg MCHC (32-36) g/dL RDW Std Deviation (36.4-46.3) fL RDW Coeff of Agustin (11.5-14.5) % Plt Count (130-400) K/uL MPV (7.4-10.4) fL Immature Gran % (Auto) % Neut % (Auto) % Lymph % (Auto) % [place] % (Auto) % Eos % (Auto) % Baso % (Auto) % Immature Gran # (Auto) (0.00-0.02) K/uL Neut # (Auto) (1.4-6.5) K/uL Lymph # (Auto) (1.2-3.4) K/uL [place] # (Auto) (0.11-0.59) K/uL Eos # (Auto) (0-0.5) K/uL Baso # (Auto) (0-0.2) K/uL PT 10.7 (9.0-12.0) Seconds INR 1.1 (0.9-1.1) Sodium 140 141 (136-145) mmol/L Potassium 3.4 L 3.9 (3.5-5.1) mmol/L Chloride 106 110 H (98-107) mmol/L Carbon Dioxide 27 25 (21-32) mmol/L Anion Gap 7.0 7.0 (3-11) BUN 16 14 (7-18) mg/dl Creatinine 0.88 0.83 (0.6-1.4) mg/dl Est Cr Clr Drug Dosing 105.7 108.9 ml/min Est GFR ( Amer) 129.0 132.1 Est GFR (Non-Af Amer) 111.3 114.0 BUN/Creatinine Ratio 17.8 16.2 (10-20) Glucose 71 55 L (70-99) mg/dl POC Glucose (70-99) Calcium 8.5 8.0 L (8.5-10.1) mg/dl Phosphorus 4.3 (2.5-4.9) mg/dl Magnesium 2.5 H 2.4 (1.8-2.4) mg/dl Total Bilirubin 1.3 H (0.2-1) mg/dl AST 158 H (15-37) U/L ALT 64 (12-78) U/L Alkaline Phosphatase 83 (45-117) U/L Total Creatine Kinase 4110 H 3686 H (39-308) U/L CK-MB (CK-2) 46.6 H (0.5-3.6) ng/ml CK/CKMB % Calc 1.1 (0-3.0) Troponin I < 0.015 (0-0.045) ng/ml Total Protein 7.0 (6.4-8.2) gm/dl Albumin 3.5 (3.4-5.0) gm/dl Globulin 3.5 (2.5-4.0) gm/dl Albumin/Globulin Ratio 1.0 (0.9-2) Lipase 53 L (73-393) U/L Urine Color Urine Appearance (Clear) Urine pH (4.5-7.5) Ur Specific [place] (1.000-1.030) Urine Protein (Negative) Urine Glucose (UA) (Negative) Urine Ketones (Negative) Urine Blood (Negative) Urine Nitrite (Negative) Urine Bilirubin (Negative) Urine Urobilinogen (Negative) Ur Leukocyte Esterase (Negative) Urine WBC (Auto) (0-5) /hpf Urine RBC (Auto) (0-4) /hpf U Hyaline Cast (Auto) (0-5) /lpf U Epithel Cells (Auto) (0-5) /lpf Urine Bacteria (Auto) (Negative) Salicylates (2.8-20) mg/dl Urine Opiates Screen (Neg) Ur Methadone, Qual (Neg) Acetaminophen (10-30) ug/ml Urine Barbiturates (Neg) Ur Phencyclidine (PCP) (Neg) U Amphetamin/Meth Scrn (Neg) MDMA (Ecstasy) Screen (Neg) U Benzodiazepines Scrn (Neg) Ur Cocaine Metabolite (Neg) U Marijuana (THC) Screen (Neg) Ethyl Alcohol mg/dL (0-3) mg/dl 04/13/18 04/13/18 04/13/18 Range/Units 16:10 16:10 16:42 WBC (4.8-10.8) K/uL RBC (4.7-6.1) M/uL Hgb (14.0-18.0) g/dL Hct (42-52) % MCV (80-100) fL MCH (25-34) pg MCHC (32-36) g/dL RDW Std Deviation (36.4-46.3) fL RDW Coeff of Agustin (11.5-14.5) % Plt Count (130-400) K/uL MPV (7.4-10.4) fL Immature Gran % (Auto) % Neut % (Auto) % Lymph % (Auto) % [place] % (Auto) % Eos % (Auto) % Baso % (Auto) % Immature Gran # (Auto) (0.00-0.02) K/uL Neut # (Auto) (1.4-6.5) K/uL Lymph # (Auto) (1.2-3.4) K/uL [place] # (Auto) (0.11-0.59) K/uL Eos # (Auto) (0-0.5) K/uL Baso # (Auto) (0-0.2) K/uL PT (9.0-12.0) Seconds INR (0.9-1.1) Sodium (136-145) mmol/L Potassium (3.5-5.1) mmol/L Chloride (98-107) mmol/L Carbon Dioxide (21-32) mmol/L Anion Gap (3-11) BUN (7-18) mg/dl Creatinine (0.6-1.4) mg/dl Est Cr Clr Drug Dosing ml/min Est GFR ( Amer) Est GFR (Non-Af Amer) BUN/Creatinine Ratio (10-20) Glucose (70-99) mg/dl POC Glucose 64 L* (70-99) Calcium (8.5-10.1) mg/dl Phosphorus (2.5-4.9) mg/dl Magnesium (1.8-2.4) mg/dl Total Bilirubin (0.2-1) mg/dl AST (15-37) U/L ALT (12-78) U/L Alkaline Phosphatase (45-117) U/L Total Creatine Kinase (39-308) U/L CK-MB (CK-2) (0.5-3.6) ng/ml CK/CKMB % Calc (0-3.0) Troponin I (0-0.045) ng/ml Total Protein (6.4-8.2) gm/dl Albumin (3.4-5.0) gm/dl Globulin (2.5-4.0) gm/dl Albumin/Globulin Ratio (0.9-2) Lipase (73-393) U/L Urine Color Dark Yellow Urine Appearance Clear (Clear) Urine pH 5.5 (4.5-7.5) Ur Specific [place] 1.021 (1.000-1.030) Urine Protein Negative (Negative) Urine Glucose (UA) Negative (Negative) Urine Ketones 1+ H (Negative) Urine Blood 3+ H (Negative) Urine Nitrite Negative (Negative) Urine Bilirubin Negative (Negative) Urine Urobilinogen Negative (Negative) Ur Leukocyte Esterase Negative (Negative) Urine WBC (Auto) 1-5 (0-5) /hpf Urine RBC (Auto) >30 H (0-4) /hpf U Hyaline Cast (Auto) 1-5 (0-5) /lpf U Epithel Cells (Auto) 5-10 H (0-5) /lpf Urine Bacteria (Auto) Negative (Negative) Salicylates (2.8-20) mg/dl Urine Opiates Screen Pos H (Neg) Ur Methadone, Qual Neg (Neg) Acetaminophen (10-30) ug/ml Urine Barbiturates Neg (Neg) Ur Phencyclidine (PCP) Neg (Neg) U Amphetamin/Meth Scrn Pos H (Neg) MDMA (Ecstasy) Screen Pos H (Neg) U Benzodiazepines Scrn Pos H (Neg) Ur Cocaine Metabolite Neg (Neg) U Marijuana (THC) Screen Pos H (Neg) Ethyl Alcohol mg/dL (0-3) mg/dl 04/13/18 04/13/18 04/13/18 Range/Units 16:44 16:58 17:30 WBC (4.8-10.8) K/uL RBC (4.7-6.1) M/uL Hgb (14.0-18.0) g/dL Hct (42-52) % MCV (80-100) fL MCH (25-34) pg MCHC (32-36) g/dL RDW Std Deviation (36.4-46.3) fL RDW Coeff of Agustin (11.5-14.5) % Plt Count (130-400) K/uL MPV (7.4-10.4) fL Immature Gran % (Auto) % Neut % (Auto) % Lymph % (Auto) % [place] % (Auto) % Eos % (Auto) % Baso % (Auto) % Immature Gran # (Auto) (0.00-0.02) K/uL Neut # (Auto) (1.4-6.5) K/uL Lymph # (Auto) (1.2-3.4) K/uL [place] # (Auto) (0.11-0.59) K/uL Eos # (Auto) (0-0.5) K/uL Baso # (Auto) (0-0.2) K/uL PT (9.0-12.0) Seconds INR (0.9-1.1) Sodium (136-145) mmol/L Potassium (3.5-5.1) mmol/L Chloride (98-107) mmol/L Carbon Dioxide (21-32) mmol/L Anion Gap (3-11) BUN (7-18) mg/dl Creatinine (0.6-1.4) mg/dl Est Cr Clr Drug Dosing ml/min Est GFR ( Amer) Est GFR (Non-Af Amer) BUN/Creatinine Ratio (10-20) Glucose (70-99) mg/dl POC Glucose 58 L* 66 L* 116 H (70-99) Calcium (8.5-10.1) mg/dl Phosphorus (2.5-4.9) mg/dl Magnesium (1.8-2.4) mg/dl Total Bilirubin (0.2-1) mg/dl AST (15-37) U/L ALT (12-78) U/L Alkaline Phosphatase (45-117) U/L Total Creatine Kinase (39-308) U/L CK-MB (CK-2) (0.5-3.6) ng/ml CK/CKMB % Calc (0-3.0) Troponin I (0-0.045) ng/ml Total Protein (6.4-8.2) gm/dl Albumin (3.4-5.0) gm/dl Globulin (2.5-4.0) gm/dl Albumin/Globulin Ratio (0.9-2) Lipase (73-393) U/L Urine Color Urine Appearance (Clear) Urine pH (4.5-7.5) Ur Specific [place] (1.000-1.030) Urine Protein (Negative) Urine Glucose (UA) (Negative) Urine Ketones (Negative) Urine Blood (Negative) Urine Nitrite (Negative) Urine Bilirubin (Negative) Urine Urobilinogen (Negative) Ur Leukocyte Esterase (Negative) Urine WBC (Auto) (0-5) /hpf Urine RBC (Auto) (0-4) /hpf U Hyaline Cast (Auto) (0-5) /lpf U Epithel Cells (Auto) (0-5) /lpf Urine Bacteria (Auto) (Negative) Salicylates (2.8-20) mg/dl Urine Opiates Screen (Neg) Ur Methadone, Qual (Neg) Acetaminophen (10-30) ug/ml Urine Barbiturates (Neg) Ur Phencyclidine (PCP) (Neg) U Amphetamin/Meth Scrn (Neg) MDMA (Ecstasy) Screen (Neg) U Benzodiazepines Scrn (Neg) Ur Cocaine Metabolite (Neg) U Marijuana (THC) Screen (Neg) Ethyl Alcohol mg/dL (0-3) mg/dl Administered Medications Discontinued Medications Gabapentin (Neurontin) 300 mg PO NOW ONE Stop: 04/13/18 16:16 Last Admin: 04/13/18 16:56 Dose: 300 mg Sodium Chloride (Nss 1000ml) 2,000 mls @ 999 mls/hr IV .Q2H1M ARTIE Stop: 04/13/18 12:00 Last Infusion: 04/13/18 12:23 Dose: 0 mls/hr Admin: 04/13/18 10:25 Dose: 999 mls/hr Sodium Chloride (Nss 1000ml) 1,000 mls @ 200 mls/hr IV .Q5H STA Stop: 04/13/18 16:01 Last Admin: 04/13/18 11:09 Dose: 200 mls/hr Sodium Chloride (Nss 1000ml) 1,000 mls @ 125 mls/hr IV .Q8H ARTIE Stop: 05/13/18 12:29 Last Admin: 04/13/18 17:25 Dose: 125 mls/hr Multivitamins 10 ml/ Thiamine HCl 100 mg/ Folic Acid 1 mg/Sodium Chloride 1, 011.2 mls @ 500 mls/hr IV .Q2H2M ARTIE Stop: 04/13/18 17:01 Last Admin: 04/13/18 15:16 Dose: 500 mls/hr Lorazepam (Ativan) 1 mg in 2 mls @ 2 mls/min IV ONE PRN; Protocol PRN Reason: EtoH Withdrawal AWSS 6-10 Stop: 05/13/18 14:43 Last Admin: 04/13/18 16:00 Dose: 1 mls/min Nicotine (Nicoderm Cq) 7 mg TD QAM ARTIE Stop: 05/13/18 16:14 Last Admin: 04/13/18 16:56 Dose: 7 mg Imaging Data Radiologist's Impression: Radiology results as stated below per my review and the radiologist's interpretation: XR chest 1V portable CLINICAL HISTORY: hypoxia, overdose dyspnea COMPARISON STUDY: 08/01/2017 FINDINGS: The bones soft tissues and hemidiaphragms are normal. The cardiomediastinal silhouette is normal. The lungs are clear. The pulmonary vasculature is normal. IMPRESSION: Negative chest. The above report was generated using voice recognition software. It may contain grammatical, syntax or spelling errors. Electronically signed by: Manohar Fontaine M.D. 04/13/2018 10:19 AM XR lumbar spine min 4V routine HISTORY: Pain right lumbar back pain, overdose COMPARISON: 12/03/2010 FINDINGS: There is no fracture. Mild scoliosis. Disc spaces are generally well preserved. No evidence for compression deformity. Unchanging postoperative changes left acetabulum and hip region. IMPRESSION: Mild scoliosis. No acute process. Stable postoperative changes left hip and acetabulum. The above report was generated using voice recognition software. It may contain grammatical, syntax or spelling errors. Electronically signed by: Manohar Fontaine M.D. 04/13/2018 11:[address] head/brain wo con CT DOSE: 537.48 mGy.cm HISTORY: Mental status change Altered, drug overdose, rhabdomyolysis TECHNIQUE: Multiaxial CT images of the head were performed without the use of intravenous contrast. A dose lowering technique was utilized adhering to the principles of ALARA. Comparison: None. Findings: The paranasal sinuses and mastoid air cells are clear. The calvarium and skull base are intact. The ventricles and sulci are within normal limits. There is no mass, hematoma, midline shift, or acute infarct. Impression: No acute intracranial abnormality. The above report was generated using voice recognition software. It may contain grammatical, syntax or spelling errors. Electronically signed by: Manohar Fontaine M.D. 04/13/2018 11:34 AM ECG Data Attestation: I personally reviewed and interpreted this ECG as follows: Indication: other (overdose) Rate (beats per minute): 109 Rhythm: sinus tachycardia Findings: + other (right atrial enlargement, LVH, normal intervals) and + nonspecific-ST abn; no PAC, no PVC, no ST depression and no ST elevation Blood Pressure Blood Pressure Findings: Normal blood pressure Blood Pressure Disposition: did not require urgent referral Discharge Plan Visit Data *Final* Discharge Date/Time: 04/13/18 14:13 Chief Complaint: Overdose (Intentional) ED Provider: Rayray Vazquez Discharge Problem: Drug overdose, Rhabdomyolysis, Hypoxia Patient Disposition: Admitted As Inpatient Discharge Instructions Interventions: ED Discharge Assessment Last Done: 04/13/18 14:13 The scribe's documentation has been prepared under my direction and personally reviewed by me in its entirety. I confirm that the note above accurately reflects all work, treatment, procedures, and medical decision making performed by me.
--- NOTE | 2018-04-13 11:29 | XRay Report ---
XR lumbar spine min 4V routine HISTORY: Pain right lumbar back pain, overdose COMPARISON: 12/03/2010 FINDINGS: There is no fracture. Mild scoliosis. Disc spaces are generally well preserved. No evidence for compression deformity. Unchanging postoperative changes left acetabulum and hip region. IMPRESSION: Mild scoliosis. No acute process. Stable postoperative changes left hip and acetabulum. The above report was generated using voice recognition software. It may contain grammatical, syntax or spelling errors. Electronically signed by: Manohar Fontaine M.D. 04/13/2018 11:27 AM
--- NOTE | 2018-04-13 11:36 | CT Scan Report ---
CT head/brain wo con CT DOSE: 537.48 mGy.cm HISTORY: Mental status change Altered, drug overdose, rhabdomyolysis TECHNIQUE: Multiaxial CT images of the head were performed without the use of intravenous contrast. A dose lowering technique was utilized adhering to the principles of ALARA. Comparison: None. Findings: The paranasal sinuses and mastoid air cells are clear. The calvarium and skull base are int act. The ventricles and sulci are within normal limits. There is no mass, hematoma, midline shift, or acute infarct. Impression: No acute intracranial abnormality. The above report was generated using voice recognition software. It may contain grammatical, syntax or spelling errors. Electronically signed by: Manohar Fontaine M.D. 04/13/2018 11:34 AM
[2018-04-13 11:47] LABS: INR 1.1 (0.9-1.1); Prothrombin Time 10.7 Seconds (9.0-12.0)
--- NOTE | 2018-04-13 12:17 | History & Physical Report ---
Date of Service April 13, 2018 Assessment & Plan (1) Intoxication: This is a 37 year old Male who as per previous hospital records was last seen in July 2017 and previously in 2017 with history of alcohol use and evaluations for suicidal ideations and had evaluations with behavioral health department in the past who presented to the ED on 04/13/18 and as per emergency room department report: "presenting to the Emergency Department via EMS due to an overdose that occurred early this morning. The HPI is limited secondary to intoxication. Per nursing staff, after reading EMS report, the patient was found outside of a bank and states that the patient reports that last night he did two bags of K2, two bags of ecstasy, and consumed whiskey. Nursing also states that the patient has been a drug user for the past 20 years and has a history of meth and heroin use; his most recent use of meth being two days ago. Nursing also states that the patient has received 46 doses of Narcan in his lifetime." Patient was given IV fluids and imaging scans have not identified fractures or stroke. His urine toxicology test is remarkable for metabolites for methadone, amphetamine, benzodiazepines, marijuana Intoxication / elevated creatinine kinase / history of suicidal ideations / Transaminitis /Leukocytosis -will continue to monitor the patient on telemetry -likely patient will become more awake and alert with further monitoring -he is not in respiratory distress and can hold off Narcan at this time -given multiple drug metabolites in urine, will continue IV fluids as Normal saline 125 cc/hr to help clear this metabolites from patient's system -elevated creatinine kinase and rhabdomyolysis from intoxication, continue IV fluids as Normal saline 125 cc/hr -Leukocytosis 11,000 may be from dehydration, will send blood culture -can consider transitioning to D5 1/2 normal saline to give calorie nutrition if prolonged NPO -monitor urine output, bladder scan as needed -transaminitis with elevated AST 158, may be indicative of alcohol use -no alcohol in urine toxicology but given polysubstance use, will put in place alcohol withdrawal protocolos, give thiamine and folic acid, check magnesium and phosphorous levels -fall precautions -when more awake and alert may need speech and swallow and PT/OT -case management services -may need behavioral health evaluation when more awake and alert to give history -history of tobacco use in the past, will ask and travel counselor automobile [employer] when more awake and alert DVT ppx: SCDs for now History of Present Illness Primary Care Provider: NO PCP This is a 37 year old Male who as per previous hospital records was last seen in July 2017 and previously in 2017 with history of alcohol use and evaluations for suicidal ideations and had evaluations with behavioral health department in the past who presented to the ED on 04/13/18 and as per emergency room department report: "presenting to the Emergency Department via EMS due to an overdose that occurred early this morning. The HPI is limited secondary to intoxication. Per nursing staff, after reading EMS report, the patient was found outside of a bank and states that the patient reports that last night he did two bags of K2, two bags of ecstasy, and consumed whiskey. Nursing also states that the patient has been a drug user for the past 20 years and has a history of meth and heroin use; his most recent use of meth being two days ago. Nursing also states that the patient has received 46 doses of Narcan in his lifetime." Patient was given IV fluids and imaging scans have not identified fractures or stroke. His urine toxicology test is remarkable for metabolites for methadone, amphetamine, benzodiazepines, marijuana Creatinine kinase > 4000 As per his ED nurse, patient has been "out of it" since being in ED and patient was originally found slumped on a car outside On exam patient when seen by hospitalist, the patient was generally lethargic and sleeping. He was arousable to tapping of the chest but unable to stay alert for more than 10 seconds before going back to sleep. He was able to resist the examined when trying to pull up the eyelids to assess the pupils There are no obvious wounds of the skin on exam and patient with regular heart rate and is breathing without distress on room air. Review of systems, of health history from patient, or family history or allergy history could not be obtained from the patient Allergies Allergy/AdvReac Type Severity Reaction Status Date / Time Penicillins Allergy Unknown Verified 08/01/17 10:30 cephalexin AdvReac Unknown gi symptoms Verified 08/01/17 10:30 Home Medications Home Medications Medication Instructions Recorded Confirmed Type Ibuprofen 800 mg PO Q8 PRN #0 09/20/14 History Methadone Hcl (Dolophine) 50 mg PO DAILY #0 tab 03/27/17 History Gabapentin (Neurontin) 300 mg PO TID #0 08/01/17 History HYDROXYZINE HCL (ATARAX) 25 mg PO Q4H PRN #0 08/01/17 History HYDROXYZINE HCL (ATARAX) 50 mg PO HS PRN #0 08/01/17 History NICOTINE (NICODERM CQ 21MG PATCH) 1 patch TRANSDERMAL DAILY #0 08/01/17 History NICOTINE POLACRILEX (NICORETTE) 1 piece of gum MT Q2H #0 08/01/17 History Past Med/Surg History Medical History Intravenous drug abuse, 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) PTSD (post-traumatic stress disorder) (Chronic) Spontaneous pneumothorax (Resolved) Opioid abuse (Chronic 08/21/12) Anxiety (Chronic) Pulmonary embolism (Resolved) Acute renal failure (Resolved) Alcohol abuse (Chronic) Alcohol intoxication (Resolved) Dehydration (Resolved) Depression (Chronic) Drug overdose (Resolved) Hepatitis C (Chronic) Nicotine dependence, cigarettes, uncomplicated (Chronic) Opioid use disorder, severe, dependence (Chronic) Stimulant intoxication (Resolved) Suicidal ideation (Resolved) Social History Feels Safe at Home: Yes Smoking Status: Current every day smoker Review of Systems Review of systems limited as patient is lethargic Physical Exam 2 Vital Signs (Past 24 Hours): Last Vital Signs Temp 36.3 C L 04/13/18 09:37 Pulse 80 04/13/18 11:37 Resp 16 04/13/18 11:37 BP 126/78 04/13/18 11:37 Pulse Ox 96 04/13/18 11:37 Physical Exam: General: lethargic Eyes: pupils appear equal and reactive to light, patient resists with eyelids a more thorogh occular exam Neuro: able to move upper extremities on his own Skin: no obvious ulcers seen on the extremities or thorax of neck Mouth: patient able to open mouth, mouth appears dry mucous memebranes, does not stick out the tongue when asked but no obvious tongue swelling Abdomen: soft Legs: no edema, no calf swelling
[2018-04-13] MEDS ORDERED: SODIUM CHLORIDE 0.9% 1000ML 1,000 ML IV SCH (12:30)
[2018-04-13] MEDS ORDERED: GLUCOSE 40% GEL 15 GM TUBE PO PRN (14:44)
[2018-04-13] MEDS ORDERED: LORazepam 1 MG/2 ML VIAL IV PRN (14:44)
[2018-04-13] MEDS ORDERED: GLUCAGON FOR INJ 1 MG VIAL SQ PRN (14:44)
[2018-04-13] MEDS ORDERED: DEXTROSE 50% 50 ML SYRINGE IV PRN (14:44)
[2018-04-13] MEDS ORDERED: D5W AND 1/2NSS 1,000 ML IV SCH ×2 (14:44→17:45)
[2018-04-13] MEDS ORDERED: CARBOHYDRATES FOR HYPOGLYCEMIA PO PRN (14:44)
[2018-04-13] MEDS ORDERED: GLUCOSE 10 TABS/TUBE PO PRN (14:44)
[2018-04-13] MEDS ORDERED: MULTI-VITAMIN INFUSION 10 ML, THIAMINE HCL 100 MG, FOLIC ACID 1 MG in SODIUM CHLORIDE 0... IV SCH (15:00)
[2018-04-13 15:41] LABS: BUN Creatinine Ratio 16.2 (10-20); Creatinine Clr Calc Pharmacy 108.9 ml/min; Est GFR (African American) 132.1; Magnesium 2.4 mg/dl (1.8-2.4); Potassium 3.9 mmol/L (3.5-5.1)
[2018-04-13 15:55] LABS: Phosphorus 4.3 mg/dl (2.5-4.9)
[2018-04-13] MEDS ORDERED: NICOTINE 7 MG/24 HR TDSY TD SCH (16:15)
[2018-04-13] MEDS ORDERED: LORazepam 0.5 MG/1 ML VIAL IV ONE (16:15)
[2018-04-13] MEDS ORDERED: GABAPENTIN 300 MG CAP PO ONE (16:15)
[2018-04-13] MEDS ORDERED: INSULIN ASPART 100 UNITS/ML 3 ML PEN SC SCH (16:30)
[2018-04-13] MEDS ORDERED: ZOLPIDEM TARTRATE 5 MG TAB PO PRN (17:33)
[2018-04-13 18:13] LABS: Appearance Urine Clear (Clear); Bacteria Urine Automated Negative (Negative); Bilirubin Urine Negative (Negative); Color Urine Dark Yellow; Glucose Urine UA Negative (Negative); Ketones Urine 1+ (Negative); Leukocyte Esterase Urine Negative (Negative); Nitrite Urine Negative (Negative); Protein Urine Negative (Negative); Specific Gravity Urine 1.021 (1.000-1.030); Urobilinogen Urine Negative (Negative); pH Urine 5.5 (4.5-7.5)
--- NOTE | 2018-04-13 18:37 | Hospitalist Progress Note ---
Date of Service April 13, 2018 Subjective Patient's nurse called the medical doctor around 6:20PM that patient was dressed , pulled of the heart monitor and IV, dressed in street clothes to leave against medical advice. Patient signed the leave against medical advice form which denotes that the risk of leaving against medical advice includes loss of consciousness and kidney failure Physical Exam 2 Vital Signs (Past 24 Hours): Last Vital Signs Temp 36.2 C L 04/13/18 17:04 Pulse 96 H 04/13/18 17:04 Resp 20 04/13/18 17:04 BP 145/98 H 04/13/18 17:04 Pulse Ox 98 04/13/18 17:04
--- NOTE | 2018-04-13 18:39 | Discharge Summary ---
Date of Service April 13, 2018 Admission HPI Per Admitting Provider This is a 37 year old Male who as per previous hospital records was last seen in July 2017 and previously in 2017 with history of alcohol use and evaluations for suicidal ideations and had evaluations with behavioral health department in the past who presented to the ED on 04/13/18 and as per emergency room department report: "presenting to the Emergency Department via EMS due to an overdose that occurred early this morning. The HPI is limited secondary to intoxication. Per nursing staff, after reading EMS report, the patient was found outside of a bank and states that the patient reports that last night he did two bags of K2, two bags of ecstasy, and consumed whiskey. Nursing also states that the patient has been a drug user for the past 20 years and has a history of meth and heroin use; his most recent use of meth being two days ago. Nursing also states that the patient has received 46 doses of Narcan in his lifetime." Patient was given IV fluids and imaging scans have not identified fractures or stroke. His urine toxicology test is remarkable for metabolites for methadone, amphetamine, benzodiazepines, marijuana Creatinine kinase > 4000 As per his ED nurse, patient has been "out of it" since being in ED and patient was originally found slumped on a car outside On exam patient when seen by hospitalist, the patient was generally lethargic and sleeping. He was arousable to tapping of the chest but unable to stay alert for more than 10 seconds before going back to sleep. He was able to resist the examined when trying to pull up the eyelids to assess the pupils There are no obvious wounds of the skin on exam and patient with regular heart rate and is breathing without distress on room air. Review of systems, of health history from patient, or family history or allergy history could not be obtained from the patient Principal Diagnosis Drug intoxication with complication Non traumatic rhabdomyolysis Leukocytosis Transaminitis Dehydration Discharge Data Allergies Allergy/AdvReac Type Severity Reaction Status Date / Time Penicillins Allergy Unknown Verified 08/01/17 10:30 cephalexin AdvReac Unknown gi symptoms Verified 08/01/17 10:30 Consultations 04/13/18 11:17 ED Decision to Admit Stat 04/13/18 14:44 Consult Case Management - Discharge Planning Routine 04/13/18 15:39 Consult Psychiatry Routine Ordered Studies 04/13/18 11:11 CT head/brain wo con Stat Hospital Course (1) Intoxication: This is a 37 year old Male who as per previous hospital records was last seen in July 2017 and previously in 2017 with history of alcohol use and evaluations for suicidal ideations and had evaluations with behavioral health department in the past who presented to the ED on 04/13/18 and as per emergency room department report: "presenting to the Emergency Department via EMS due to an overdose that occurred early this morning. The HPI is limited secondary to intoxication. Per nursing staff, after reading EMS report, the patient was found outside of a bank and states that the patient reports that last night he did two bags of K2, two bags of ecstasy, and consumed whiskey. Nursing also states that the patient has been a drug user for the past 20 years and has a history of meth and heroin use; his most recent use of meth being two days ago. Nursing also states that the patient has received 46 doses of Narcan in his lifetime." Patient was given IV fluids and imaging scans have not identified fractures or stroke. His urine toxicology test is remarkable for metabolites for methadone, amphetamine, benzodiazepines, marijuana Intoxication / elevated creatinine kinase / history of suicidal ideations / Transaminitis /Leukocytosis -will continue to monitor the patient on telemetry -likely patient will become more awake and alert with further monitoring -he is not in respiratory distress and can hold off Narcan at this time -given multiple drug metabolites in urine, will continue IV fluids as Normal saline 125 cc/hr to help clear this metabolites from patient's system -elevated creatinine kinase and rhabdomyolysis from intoxication, continue IV fluids as Normal saline 125 cc/hr -Leukocytosis 11,000 may be from dehydration, will send blood culture -can consider transitioning to D5 1/2 normal saline to give calorie nutrition if prolonged NPO -monitor urine output, bladder scan as needed -transaminitis with elevated AST 158, may be indicative of alcohol use -no alcohol in urine toxicology but given polysubstance use, will put in place alcohol withdrawal protocolos, give thiamine and folic acid, check magnesium and phosphorous levels -fall precautions -when more awake and alert may need speech and swallow and PT/OT -case management services -may need behavioral health evaluation when more awake and alert to give history -history of tobacco use in the past, will ask and equal opportunity counselor when more awake and alert DVT ppx: SCDs for now Addendum April 13, 2018 15:18 Around 3 pm when patient on medical burt he is awake and alert and able to give history reports that he was partying at night patient last remembers being awake before the hospital when walking at the bus top Patient reports that has in the past follows with Dr. Martinez who has in the past presrcibed him suboxone TID Hospitalist have called to verify the suboxone dosing [place] location: [facility] [address] ([address] entrance) [place] [address] Patient also reports he has on home medication list been legally prescribed clonidine 0.1 BID, gabapentin 800 mg QID although this could not be verified with Dr. Martinez's office as they do not have list of other medications besides being the patient's suboxone prescribing clinic patient reports that he has allergies to penicillins such as hives and airway closure but denies reaction to amoxicillins patient reports that he lives in [place] has a drug counselor named Irving at [facility] (a drug or alcohol rehabilitation center with a primary focus on mental health and substance abuse treatment based at [address] in [place], [place]) and would like hospitalist to notify that he has been hospitalized for drug intoxication patient also would like his friend Hien [phone] to be notified patient also would like his mother Rizwana [phone] to be on the contact list but should not be notified unless it is a medical emergency In a medical emergency, patient reports he allows for full code status such as chest compressions, defibrillations, intubations (he denies of ever needing to be resuscitated before in the past) Patient's nurse called the medical doctor around 6:20PM that patient was dressed , pulled of the heart monitor and IV, dressed in street clothes to leave against medical advice. Patient signed the leave against medical advice form which denotes that the risk of leaving against medical advice includes loss of consciousness and kidney failure Total Time Total Time Spent Total Time Spent (In Minutes): 10 Total Time Includes: Examination of the Patient Discharge Plan Discharge Items Patient Disposition: Against Medical Advice Diet: Carb Consistent or DM2 Admission Data Admit Date/Time: 04/13/18 12:13 Service: Telemetry
[2018-04-13 18:44] LABS: Amphetamines+Metham, Urine Pos (Neg); Barbiturates, Urine Neg (Neg); Benzodiazepine, Urine Pos (Neg); Cocaine, Urine Neg (Neg); MDMA (Ecstacy), Urine Pos (Neg); Methadone, Urine Neg (Neg); Opiate, Urine Pos (Neg); Phencyclidine, Urine Neg (Neg)
[2018-04-13] MEDS ORDERED: BUPRENORPHINE/NALOXONE 8/2 MG TAB SL SCH (21:00)
[2018-04-14] MEDS ORDERED: THIAMINE HCL 100 MG in SYRINGE 9 ML IV SCH (09:00)
--- NOTE | 2018-04-14 09:06 | Communication Note ---
Date of Service: April 14, 2018 Consult request was received in the afternoon on 04/03/2018. This physician spoke with the primary attending, Dr. Hartley, in an attempt to clarify the consult question. At the time, there was no specific question for psychiatry, but reviewed the chart and recommended the primary team obtain a drug screen, as the patient was admitted for intoxication but no drug screen was done. The patient then signed out AMA before he was seen by a cardio clinician.
[2018-04-19 12:42] LABS: 7-Aminoclonaz, Confirm 436 NG/ML (CUTOFF=25); Amphetamine Urine, Confirm 3370 NG/ML (CUTOF=250); Hydro-Alp Ur, GC/MS 203 NG/ML (CUTOFF=25); Hydrocodone Urine NEGATIVE NG/ML (CUTOFF=50); Hydromor Urine NEGATIVE NG/ML (CUTOFF=50); Hydroxyethylflurazepam, Conf NEGATIVE NG/ML (CUTOFF=50); Hydroxytriazolam NEGATIVE NG/ML (CUTOFF=50); Lorazepam, Ur GC/MS NEGATIVE NG/ML (CUTOFF=50); MDA negative; MDEA negative; MDMA (Ecstasy) Urine, Confirm negative; Marijuana Quant, GCMS Urine 106 NG/ML (CUTOFF=5); Morphine Urine 8260 NG/ML (CUTOFF=50); Nordiazepam, Confirm NEGATIVE NG/ML (CUTOFF=50); Norhydrocodone Conf Ur NEGATIVE NG/ML (CUTOFF=50); Noroxycodone Urine NEGATIVE NG/ML (CUTOFF=50); Oxazepam Ur, GC/MS NEGATIVE NG/ML (CUTOFF=50); Oxycodone Urine NEGATIVE NG/ML (CUTOFF=50); Temazepam, Confirm NEGATIVE NG/ML (CUTOFF=50)
== END 2018-04-13 18:45 | disposition left against medical advice (07) | DRG 918 ==
LOC: ED 09:25 → 2S 12:13

== ENCOUNTER 2018-04-14 12:41 | Inpatient (IN) ==
[2018-04-14] MEDS ORDERED: SODIUM CHLORIDE 0.9% 1000ML 2,000 ML IV SCH (14:00)
[2018-04-14 14:35] LABS: Basophils # (auto) 0.05 K/uL (0-0.2); Basophils % (auto) 0.5 %; Eosinophils # (auto) 0.12 K/uL (0-0.5); Eosinophils % (auto) 1.3 %; Hematocrit (blood only) 40.1 % (42-52); Hemoglobin 13.4 g/dL (14.0-18.0); Immature Granulocytes # (auto) 0.01 K/uL (0.00-0.02); Immature Granulocytes % (auto) 0.1 %; Lymphocytes # (auto) 1.47 K/uL (1.2-3.4); Lymphocytes % (auto) 15.8 %; Mean Corpuscular Hgb Conc 33.4 g/dL (32-36); Mean Corpuscular Volume 96.6 fL (80-100); Monocytes # (auto) 0.59 K/uL (0.11-0.59); Monocytes % (auto) 6.4 %; Neutrophils # (auto) 7.05 K/uL (1.4-6.5); Neutrophils % (auto) 75.9 %; Platelet Count 206 K/uL (130-400); RDW Coefficient of Variation 12.9 % (11.5-14.5); RDW Standard Deviation 44.9 fL (36.4-46.3); Red Blood Count 4.15 M/uL (4.7-6.1); White Blood Count 9.29 K/uL (4.8-10.8)
[2018-04-14 14:49] LABS: Acetaminophen < 2 ug/ml (10-30); Alanine Aminotransferase 74 U/L (12-78); Aspartate Aminotransferase 170 U/L (15-37); Blood Urea Nitrogen 11 mg/dl (7-18); Calcium 8.3 mg/dl (8.5-10.1); Carbon Dioxide 23 mmol/L (21-32); Chloride 104 mmol/L (98-107); Creatinine Clr Calc Pharmacy 142.1 ml/min; Est GFR (African American) 144.3; Est GFR (Non-African American) 124.5; Glucose 65 mg/dl (70-99); Magnesium 2.3 mg/dl (1.8-2.4); Potassium 3.5 mmol/L (3.5-5.1); Salicylate < 1.7 mg/dl (2.8-20); Sodium 138 mmol/L (136-145)
[2018-04-14 15:04] LABS: Albumin Globulin Ratio 0.9 (0.9-2); Alkaline Phosphatase 76 U/L (45-117); Bilirubin,Total 1.3 mg/dl (0.2-1); Creatine Kinase 4402 U/L (39-308); Globulin 3.4 gm/dl (2.5-4.0); Total Protein 6.4 gm/dl (6.4-8.2); Troponin I < 0.015 ng/ml (0-0.045)
[2018-04-14] MEDS ORDERED: LACTATED RINGER'S 1,000 ML IV SCH (16:45)
[2018-04-14 17:12] LABS: Amphetamines+Metham, Urine Pos (Neg); Barbiturates, Urine Neg (Neg); Benzodiazepine, Urine Pos (Neg); Cocaine, Urine Neg (Neg); MDMA (Ecstacy), Urine Neg (Neg); Methadone, Urine Neg (Neg); Opiate, Urine Pos (Neg); Phencyclidine, Urine Neg (Neg)
--- NOTE | 2018-04-14 17:59 | Emergency Department Note ---
Entered by Mj Knowles acting as a scribe for Rayray Vazquez MD ED Provider Note CHIEF COMPLAINT: Back Pain HISTORY OF PRESENT ILLNESS: This history is limited secondary to altered mental status. The patient is a 37 year old male who presents to the Emergency Room with complaints of back pain. The patient was here in the Emergency Department yesterday for similar complaints and left against medical advice. Yesterday the patient admitted to recently doing "K2, Meth, Clonapin, Heroin, and drinking whisky." Today he again admits to doing heroin yesterday. The patient states his back started to hurt again today while at work. He denies any chest pain, abdominal pain, trauma , or head pain. REVIEW OF SYSTEMS: See HPI for pertinent positives and negatives. ROS is limited secondary to altered mental status. PMHx/PSHx: Drug overdose Rhabdomyolysis IV drug abuse PTSD Pneumothorax Pulmonary emboli Acute renal failure Hepatitis C Suicidal ideation SOCIAL HISTORY: Patient lives at home. PHYSICAL EXAM: GENERAL: Very sleepy, arouses to voice. NAD. HENT: Normocephalic, atraumatic. Oropharynx unremarkable. Mucous membranes are dry. EYES: PERRL. Normal conjunctiva. Sclera non-icteric. NECK: Inspection normal. Non-tender. Supple. No nuchal rigidity. FROM. No masses. RESPIRATORY: Clear to auscultation. No wheezes. No rales. Normal respiratory effort. CARDIAC: Borderline tachycardic rate. Normal rhythm. No murmurs. No rubs. Extremities warm and well perfused. Pulses equal. No JVD. GI: Soft, non-distended. No tenderness to palpation. No rebound or guarding. No masses. RECTAL: Deferred. MUSCULOSKELETAL: Atraumatic. Chest examination reveals no tenderness. The back is symmetrical on inspection without obvious abnormality. There is no CVA tenderness to palpation. No joint edema. LOWER EXTREMITIES: Calves are equal size bilaterally and non-tender. No edema. No discoloration. NEURO: Altered sensorium. No sensory or motor deficits noted. SKIN: There are scattered track tee in the upper extremities, no bruising or signs of cellulitis. No rash or jaundice noted. EMERGENCY DEPARTMENT COURSE: 1356: Past medical records reviewed. The patient was evaluated in room C10, and a complete history and physical examination were performed. 1637: I updated the patient on her visit at this time. 1639: I reviewed the patient's case with Lawanda Garcia - [facility]ist MYRANDA. She will evaluate the patient for further management. MEDICAL DECISION MAKING: Prior records/ancillary studies reviewed. Triage Nursing notes reviewed and agree them. The patient's history was concerning for altered mental status and probable overdose. Differential diagnosis: Etiologies such as toxicologic, infection, hypoglycemia, electrolyte abnormalities, cardiac sources, intracerebral event, neurologic, as well as others were entertained. Physical examination: The patient had altered sensorium. No trauma noted. ER treatment provided: IV NSS 2 L bolus IV hydration lactated Ringer 200 mL/hr Cardiac monitoring Diagnostic interpretation by me: The electrocardiogram was negative for pathologic change. There was no QRS widening or interval prolongation. The labs revealed an unremarkable CBC. Chemistry panel revealed mild hypoglycemia. This was confirmed by bedside testing. The patient has significant rhabdomyolysis present. This is worse than yesterday when he left AMA. Total CK was well over 4000. Imaging studies: Deferred The patient left AMA after being admitted for drug abuse and rhabdomyolysis. He agrees that he left prematurely and is amenable to staying in the hospital today. Consultation: A consultation was placed with the hospitalist. The case was discussed and diagnostics were reviewed. The patient was evaluated in the ER for further treatment. IMPRESSION: Rhabdomyolysis, hypoglycemia, drug abuse. PLAN: Admit to [facility]ist The scribe's documentation has been prepared under my direction and personally reviewed by me in its entirety. I confirm that the note above accurately reflects all work, treatment, procedures, and medical decision making performed by me. Impression & Plan Rhabdomyolysis, Hypoglycemia, Drug abuse Past Med/Surg History Medical History Intravenous drug abuse, 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) PTSD (post-traumatic stress disorder) (Chronic) Spontaneous pneumothorax (Resolved) Opioid abuse (Chronic 08/21/12) Anxiety (Chronic) Pulmonary embolism (Resolved) Acute renal failure (Resolved) Alcohol abuse (Chronic) Alcohol intoxication (Resolved) Dehydration (Resolved) Depression (Chronic) Drug overdose (Resolved) Hepatitis C (Chronic) Nicotine dependence, cigarettes, uncomplicated (Chronic) Opioid use disorder, severe, dependence (Chronic) Stimulant intoxication (Resolved) Suicidal ideation (Resolved) Social History Current Living Situation: Family Feels Safe at Home: Yes Smoking Status: Current every day smoker Tobacco Type: cigarettes Hx Alcohol Use: Yes Alcohol type: beer Alcohol Intake Frequency: 3 or more drinks per day Beliefs That Will Affect Care: None Preferred Language: Tamazight Communication Ability: Effective Results & Data Vital Signs Vital Signs - 24 hr 04/14/18 12:48 04/14/18 12:54 04/14/18 13:30 Temperature 36.9 C Temperature Source Oral Sepsis Recent Fever Within 48 Hours No Sepsis New/Unexplained Change in Mental Status No Sepsis Action Taken by Nursing No Action Required Pulse Rate 95 H 84 Respiratory Rate 18 19 Blood Pressure 135/80 123/75 Blood Pressure Mean 98 91 Pulse Oximetry 97 97 97 Oxygen Delivery Method Room Air Room Air 04/14/18 14:00 04/14/18 14:30 04/14/18 14:40 Temperature Temperature Source Sepsis Recent Fever Within 48 Hours Sepsis New/Unexplained Change in Mental Status Sepsis Action Taken by Nursing Pulse Rate 87 89 83 Respiratory Rate 18 17 19 Blood Pressure 120/77 123/75 Blood Pressure Mean 91 91 Pulse Oximetry 100 100 Oxygen Delivery Method 04/14/18 14:50 04/14/18 15:00 04/14/18 15:10 Temperature Temperature Source Sepsis Recent Fever Within 48 Hours Sepsis New/Unexplained Change in Mental Status Sepsis Action Taken by Nursing Pulse Rate 83 84 85 Respiratory Rate 18 19 20 Blood Pressure 117/73 Blood Pressure Mean 87 Pulse Oximetry 100 100 96 Oxygen Delivery Method 04/14/18 15:20 04/14/18 15:30 04/14/18 15:40 Temperature Temperature Source Sepsis Recent Fever Within 48 Hours Sepsis New/Unexplained Change in Mental Status Sepsis Action Taken by Nursing Pulse Rate 83 83 83 Respiratory Rate 18 19 19 Blood Pressure 117/71 Blood Pressure Mean 86 Pulse Oximetry 98 98 97 Oxygen Delivery Method 04/14/18 15:50 04/14/18 16:00 04/14/18 16:10 Temperature Temperature Source Sepsis Recent Fever Within 48 Hours Sepsis New/Unexplained Change in Mental Status Sepsis Action Taken by Nursing Pulse Rate 84 80 81 Respiratory Rate 20 20 19 Blood Pressure 121/73 Blood Pressure Mean 89 Pulse Oximetry 96 95 94 Oxygen Delivery Method 04/14/18 16:20 04/14/18 16:38 04/14/18 16:40 Temperature Temperature Source Sepsis Recent Fever Within 48 Hours Sepsis New/Unexplained Change in Mental Status Sepsis Action Taken by Nursing Pulse Rate 82 68 Respiratory Rate 20 19 Blood Pressure 121/83 Blood Pressure Mean 95 Pulse Oximetry 100 100 100 Oxygen Delivery Method 04/14/18 16:50 04/14/18 17:00 Temperature Temperature Source Sepsis Recent Fever Within 48 Hours Sepsis New/Unexplained Change in Mental Status Sepsis Action Taken by Nursing Pulse Rate 68 70 Respiratory Rate 19 19 Blood Pressure 130/82 Blood Pressure Mean 98 Pulse Oximetry 100 100 Oxygen Delivery Method Home Medications Current Medication List: was personally reviewed by me Laboratory Data Attestation: I reviewed the patient's lab results. Result diagrams: 04/14/18 14:22 04/14/18 14:08 Lab Results 04/14/18 04/14/18 04/14/18 Range/Units 14:08 14:08 14:08 WBC (4.8-10.8) K/uL RBC (4.7-6.1) M/uL Hgb (14.0-18.0) g/dL Hct (42-52) % MCV (80-100) fL MCH (25-34) pg MCHC (32-36) g/dL RDW Std Deviation (36.4-46.3) fL RDW Coeff of Agustin (11.5-14.5) % Plt Count (130-400) K/uL MPV (7.4-10.4) fL Immature Gran % (Auto) % Neut % (Auto) % Lymph % (Auto) % Bacon % (Auto) % Eos % (Auto) % Baso % (Auto) % Immature Gran # (Auto) (0.00-0.02) K/uL Neut # (Auto) (1.4-6.5) K/uL Lymph # (Auto) (1.2-3.4) K/uL Bacon # (Auto) (0.11-0.59) K/uL Eos # (Auto) (0-0.5) K/uL Baso # (Auto) (0-0.2) K/uL Sodium 138 (136-145) mmol/L Potassium 3.5 (3.5-5.1) mmol/L Chloride 104 (98-107) mmol/L Carbon Dioxide 23 (21-32) mmol/L Anion Gap 11.0 (3-11) BUN 11 (7-18) mg/dl Creatinine 0.67 (0.6-1.4) mg/dl Est Cr Clr Drug Dosing 142.1 ml/min Est GFR ( Amer) 144.3 Est GFR (Non-Af Amer) 124.5 BUN/Creatinine Ratio 16.0 (10-20) Glucose 65 L (70-99) mg/dl POC Glucose (70-99) Calcium 8.3 L (8.5-10.1) mg/dl Magnesium 2.3 (1.8-2.4) mg/dl Total Bilirubin 1.3 H (0.2-1) mg/dl AST 170 H (15-37) U/L ALT 74 (12-78) U/L Alkaline Phosphatase 76 (45-117) U/L Total Creatine Kinase 4402 H (39-308) U/L Troponin I < 0.015 (0-0.045) ng/ml Total Protein 6.4 (6.4-8.2) gm/dl Albumin 3.0 L (3.4-5.0) gm/dl Globulin 3.4 (2.5-4.0) gm/dl Albumin/Globulin Ratio 0.9 (0.9-2) Lipase 40 L (73-393) U/L Salicylates < 1.7 L (2.8-20) mg/dl Urine Opiates Screen (Neg) Ur Methadone, Qual (Neg) Acetaminophen < 2 L (10-30) ug/ml Urine Barbiturates (Neg) Ur Phencyclidine (PCP) (Neg) U Amphetamin/Meth Scrn (Neg) MDMA (Ecstasy) Screen (Neg) U Benzodiazepines Scrn (Neg) Ur Cocaine Metabolite (Neg) U Marijuana (THC) Screen (Neg) Ethyl Alcohol mg/dL < 3.0 (0-3) mg/dl 04/14/18 04/14/18 04/14/18 Range/Units 14:22 16:38 16:40 WBC 9.29 (4.8-10.8) K/uL RBC 4.15 L (4.7-6.1) M/uL Hgb 13.4 L (14.0-18.0) g/dL Hct 40.1 L (42-52) % MCV 96.6 (80-100) fL MCH 32.3 (25-34) pg MCHC 33.4 (32-36) g/dL RDW Std Deviation 44.9 (36.4-46.3) fL RDW Coeff of Agustin 12.9 (11.5-14.5) % Plt Count 206 (130-400) K/uL MPV 9.0 (7.4-10.4) fL Immature Gran % (Auto) 0.1 % Neut % (Auto) 75.9 % Lymph % (Auto) 15.8 % Bacon % (Auto) 6.4 % Eos % (Auto) 1.3 % Baso % (Auto) 0.5 % Immature Gran # (Auto) 0.01 (0.00-0.02) K/uL Neut # (Auto) 7.05 H (1.4-6.5) K/uL Lymph # (Auto) 1.47 (1.2-3.4) K/uL Bacon # (Auto) 0.59 (0.11-0.59) K/uL Eos # (Auto) 0.12 (0-0.5) K/uL Baso # (Auto) 0.05 (0-0.2) K/uL Sodium (136-145) mmol/L Potassium (3.5-5.1) mmol/L Chloride (98-107) mmol/L Carbon Dioxide (21-32) mmol/L Anion Gap (3-11) BUN (7-18) mg/dl Creatinine (0.6-1.4) mg/dl Est Cr Clr Drug Dosing ml/min Est GFR ( Amer) Est GFR (Non-Af Amer) BUN/Creatinine Ratio (10-20) Glucose (70-99) mg/dl POC Glucose 62 L* (70-99) Calcium (8.5-10.1) mg/dl Magnesium (1.8-2.4) mg/dl Total Bilirubin (0.2-1) mg/dl AST (15-37) U/L ALT (12-78) U/L Alkaline Phosphatase (45-117) U/L Total Creatine Kinase (39-308) U/L Troponin I (0-0.045) ng/ml Total Protein (6.4-8.2) gm/dl Albumin (3.4-5.0) gm/dl Globulin (2.5-4.0) gm/dl Albumin/Globulin Ratio (0.9-2) Lipase (73-393) U/L Salicylates (2.8-20) mg/dl Urine Opiates Screen Pos H (Neg) Ur Methadone, Qual Neg (Neg) Acetaminophen (10-30) ug/ml Urine Barbiturates Neg (Neg) Ur Phencyclidine (PCP) Neg (Neg) U Amphetamin/Meth Scrn Pos H (Neg) MDMA (Ecstasy) Screen Neg (Neg) U Benzodiazepines Scrn Pos H (Neg) Ur Cocaine Metabolite Neg (Neg) U Marijuana (THC) Screen Neg (Neg) Ethyl Alcohol mg/dL (0-3) mg/dl Administered Medications Discontinued Medications Sodium Chloride (Nss 1000ml) 2,000 mls @ 999 mls/hr IV .Q2H1M ARTIE Stop: 04/14/18 16:00 Last Infusion: 04/14/18 17:02 Dose: 0 mls/hr Admin: 04/14/18 14:25 Dose: 999 mls/hr ECG Data Attestation: I personally reviewed and interpreted this ECG as follows: Indication: back/shoulder pain Rate (beats per minute): 77 Rhythm: sinus rhythm Findings: + other (LVH with repolarization abnormality); no PAC and no PVC Blood Pressure Blood Pressure Findings: Normal blood pressure Discharge Plan Visit Data Chief Complaint: Back Injury/Pain ED Provider: Rayray Vazquez Discharge Problem: Rhabdomyolysis, Hypoglycemia, Drug abuse Patient Disposition: Being Evaluated by Hospitalist Forms Stand Alone Forms: My [facility] Prescriptions Prescriptions: No Action clonidine HCl 0.1 mg Tablet 0.1 mg PO BID RF: 0 ibuprofen 800 mg Tablet 800 mg PO TID PRN (Reason: Pain) RF: 0 gabapentin 800 mg Tablet 800 mg PO QID RF: 0 buprenorphine-naloxone 8-2 mg Tablet, Sublingual 3 tab SUBLINGUAL DAILY RF: 0 Referrals Referrals: PCP,NO [Primary Care Provider] - The vikasibe's documentation has been prepared under my direction and personally reviewed by me in its entirety. I confirm that the note above accurately reflects all work, treatment, procedures, and medical decision making performed by me.
--- NOTE | 2018-04-14 18:00 | History & Physical Report ---
Date of Service April 14, 2018 Assessment & Plan (1) Rhabdomyolysis: Yesterday was admitted for drug overdose. Signed out AMA Today returned with c/o generalized pain and back pain. CK: 4402 today. Was 4110 yesterday Today In ER was given 2L NSS. WBC: 9, BUN: 11, Cr: 0.67, GFR: 124, troponin negative, magnesium: 2.3 -NSS 125ml/hr -monitor cmp, CK (2) Drug abuse: Pt with hx drug abuse. Yesterday was admitted for drug overdose and reported suicidal ideations. Initially lethargic then awake and signed out AMA Today pt awake and alert and vitals stable Urine drug screen today + opiates, amphetamine/methamphetamine, benzo. Negative aspirin, tylenol, ETOH today. Urine drug screen yesterday +benzo, opiates, marijuana, ecstacy, amphetamine/ methamphetamine -today pt denies suicidal ideations -cessation encouraged -fall precautions -continue suboxone, clonidine -psych consult appreciate recommendations -case management consult (3) Alcohol abuse: Reports 2 drinks daily, however yesterday reported binge with whiskey, pt denies that today. Today negative blood ETOH. Reports last drink yesterday. Denies hx withdrawal seizures -continue home gabapentin dose -monitor for withdrawal -cessation encouraged (4) Elevated LFTs: AST: 170, ALT: 74, Alk Phos: 76. Lipase: 40. No abdominal pain, N/V. probable secondary to ETOH use -monitor liver functions (5) Hypoglycemia: BS in ER. Pt did not eat all day. Drank juice, BS. -full diet -monitor BSG (6) Tobacco abuse: -cessation discussed -nicotine patch DVT Prophylaxis -SCDs Admit tele Follows with Dr Martinez for drug rehab care, denies PCP for routine care Pt was seen with Dr Felix. See addendum History of Present Illness Chief Complaint: Pain Primary Care Provider: NO PCP Pt is 37 y/o M with PMH drug abuse, tobacco abuse, ETOH abuse presented to ER via EMS with c/o back pain and body pain. Patient was seen in the ER yesterday and admitted for drug overdose, rhabdomyolysis however patient signed out AMA yesterday. Per H&P yesterday patient had reported to nursing staff of using K2 , ecstasy, whiskey on 04/12/18. H&P from yesterday reports patient was initially lethargic and then awakened throughout the day. urine drug screen yesterday +benzo, opiates, marijuana, ecstacy, amphetamine/ methamphetamine Yesterday CK 4100 and was given fluids prior to pt leaving hospital. Today patient is denying any other recent drug use other than "taking a drug overdose with a couple Klonopin" on 04/12/18 and denies using K2, ecstasy that he had previously expressed to ER staff yesterday. Yesterdays HPI reported pt stating used meth 2 days prior. Patient states that he was "partying" and took the Klonopin to "re[place]an". At this time he denies intentional drug overdose, suicide ideations, homicidal ideations. Pt reports last drank alcohol yesterday. Denies other oral fluid or food intake today. Pt with hx drug overdose in past and reported needed narcan numerous times. Prior report of meth and heroin use in past. Patient returns today as is complaining of low back pain and "pain all over". Pt states he is willing to stay in hospital today. Patient is requesting his Suboxone is states he did not have any Suboxone today as his prescription ran out, he was to follow with clinic for new Rx yesterday however was unable to. Denies fever/chills, diaphoresis, N/V/D/C, BERNAL, dizziness, syncope, vision changes, neck pain, CP, SOB, orthopnea, palpitations, cough, sore throat, choking, otalgia, rhinorrhea, abdominal pain, paresthesias, weakness, extremity weakness, extremity edema, rashes, urinary symptoms. Pt sees Dr Martinez at [facility] [id number] [place] [id number] He is prescribed: Suboxone 8-2, 3 tabs SL once daily. [facility] [place] Phone: [phone]. Gabapentin 800mg, 1 tab po QID. Last filled in 02/2018 at [place], [place]. Phone: [phone] Clonidine 0.1mg, 1 tab po BID. [facility] [place] Phone: [phone]. Pt unsure of FH Allergies Allergy/AdvReac Type Severity Reaction Status Date / Time Penicillins Allergy Unknown Verified 04/14/18 17:21 cephalexin AdvReac Unknown gi symptoms Verified 04/14/18 17:21 Home Medications Home Medications Medication Instructions Recorded Confirmed Type buprenorphine-naloxone 3 tab SUBLINGUAL DAILY 04/14/18 04/14/18 History clonidine HCl 0.1 mg PO BID 04/14/18 04/14/18 History gabapentin 800 mg PO QID 04/14/18 04/14/18 History ibuprofen 800 mg PO TID PRN 04/14/18 04/14/18 History Past Med/Surg History Medical History Tobacco abuse (Chronic) Intravenous drug abuse, 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) PTSD (post-traumatic stress disorder) (Chronic) Spontaneous pneumothorax (Resolved) Opioid abuse (Chronic 08/21/12) Anxiety (Chronic) Pulmonary embolism (Resolved) Acute renal failure (Resolved) Alcohol abuse (Chronic) Alcohol intoxication (Resolved) Dehydration (Resolved) Depression (Chronic) Drug overdose (Resolved) Hepatitis C (Chronic) Nicotine dependence, cigarettes, uncomplicated (Chronic) Opioid use disorder, severe, dependence (Chronic) Stimulant intoxication (Resolved) Suicidal ideation (Resolved) Social History Current Living Situation: Family Feels Safe at Home: Yes Smoking Status: Current every day smoker Tobacco Type: cigarettes Hx Substance Use: Yes substance use type: IV drugs Substance Use Type Other:: Pt cannot disclose Last Used Substance: Unknown Beliefs That Will Affect Care: None Preferred Language: Welsh Review of Systems All systems reviewed & are unremarkable except as noted in HPI & below Physical Exam 2 Vital Signs (Past 24 Hours): Last Vital Signs Temp 36.9 C 04/14/18 12:48 Pulse 70 04/14/18 17:00 Resp 19 04/14/18 17:00 BP 130/82 04/14/18 17:00 Pulse Ox 100 04/14/18 17:00 Physical Exam: General: no apparent distress, WDWN Head: normocephalic, atraumatic Eyes: PERRL, EOM's intact, conjunctiva non-injected, anicteric ENT: normal inspection external ears, nose, mucous membranes moist Neck: supple, trachea midline, non-tender Lungs: clear, no respiratory distress, no wheezing/rhonchi/rales CV: RRR, no murmur, no pretibial edema Abd: normal BS, soft, non-tender Ext: no cyanosis, no calf tenderness Neuro: A&O x 3, pt initially not wanting to talk much, but then becomes more cooperative, flat affect, no focal deficits noted Skin: warm, dry Results & Data Laboratory Results Short CBC 04/14/18 Range/Units 14:22 WBC 9.29 (4.8-10.8) K/uL Hgb 13.4 L (14.0-18.0) g/dL Hct 40.1 L (42-52) % Plt Count 206 (130-400) K/uL BMP 04/14/18 14:08 Sodium 138 Potassium 3.5 Chloride 104 Carbon Dioxide 23 BUN 11 Creatinine 0.67 Glucose 65 L Calcium 8.3 L Cardiac Enzymes 04/14/18 Range/Units 14:08 Total Creatine Kinase 4402 H (39-308) U/L Troponin I < 0.015 (0-0.045) ng/ml Liver Function 04/14/18 Range/Units 14:08 Total Bilirubin 1.3 H (0.2-1) mg/dl AST 170 H (15-37) U/L ALT 74 (12-78) U/L Alkaline Phosphatase 76 (45-117) U/L Albumin 3.0 L (3.4-5.0) gm/dl Supervising Physician Co-Signing Physician Notes The patient was een and examined in ER and in Medical floor He has a history of multiple drug abuse including alcohol abuse and tobacco abuse and multiple ER visit He recently signed out AMA from the emergency room following a suspected overdose Is back with more pain at the back and denies to have any overdose, any homicidal or suicidal ideation Wanted to sigh out AMA following admission but Persuaded to stay Denies any symptoms On examination Very anxious and wants to Hemodynamically stable Lungs-clear Heart-regular Abdomen-benign POND SAWYER-alert, awake and oriented x3 Admission labs and imaging studies reviewed History of chronic pain on Suboxone with history of of multiple drug abuse as mentioned in H&P Will need psychiatric evaluation Agree with assessment and plan as outlined by Fabiana Felix _ (1) Rhabdomyolysis Encounter type: Rhabdomyolysis type:
[2018-04-14] MEDS ORDERED: DEXTROSE 50% 50 ML SYRINGE IV PRN (19:51)
[2018-04-14] MEDS ORDERED: CARBOHYDRATES FOR HYPOGLYCEMIA PO PRN (19:51)
[2018-04-14] MEDS ORDERED: LORazepam 1 MG/2 ML VIAL IV PRN (19:51)
[2018-04-14] MEDS ORDERED: GLUCAGON FOR INJ 1 MG VIAL SQ PRN (19:51)
[2018-04-14] MEDS ORDERED: GLUCOSE 10 TABS/TUBE PO PRN (19:51)
[2018-04-14] MEDS ORDERED: GLUCOSE 40% GEL 15 GM TUBE PO PRN (19:51)
[2018-04-14] MEDS ORDERED: POLYETHYLENE (MIRALAX) 17 GM PACK PO PRN (19:51)
[2018-04-14] MEDS: SODIUM CHLORIDE 0.9% 1000ML 1,000 ML IV SCH (20:58)
[2018-04-14] MEDS: GABAPENTIN 800 MG TAB PO SCH (20:58)
[2018-04-14] MEDS: NICOTINE 21 MG/24 HR TDSY TD SCH (20:58)
[2018-04-14] MEDS: cloNIDine HCl 0.1 MG TAB PO SCH (20:58)
[2018-04-15] MEDS: SODIUM CHLORIDE 0.9% 1000ML 1,000 ML IV SCH ×2 (04:42→14:09)
[2018-04-15 06:34] LABS: Hemoglobin 13.4 g/dL (14.0-18.0); Mean Corpuscular Hgb Conc 34.4 g/dL (32-36); Mean Corpuscular Volume 97.3 fL (80-100); Mean Platelet Volume 8.9 fL (7.4-10.4); Platelet Count 176 K/uL (130-400); RDW Coefficient of Variation 13.1 % (11.5-14.5); RDW Standard Deviation 46.8 fL (36.4-46.3); Red Blood Count 4.01 M/uL (4.7-6.1); White Blood Count 4.52 K/uL (4.8-10.8)
[2018-04-15 07:15] LABS: Alanine Aminotransferase 62 U/L (12-78); Albumin Level 2.6 gm/dl (3.4-5.0); Aspartate Aminotransferase 113 U/L (15-37); BUN Creatinine Ratio 11.2 (10-20); Blood Urea Nitrogen 6 mg/dl (7-18); Carbon Dioxide 27 mmol/L (21-32); Chloride 112 mmol/L (98-107); Creatinine Clr Calc Pharmacy 184.4 ml/min; Est GFR (African American) > 150.0; Est GFR (Non-African American) 139.3; Glucose 79 mg/dl (70-99); Magnesium 2.3 mg/dl (1.8-2.4); Potassium 3.5 mmol/L (3.5-5.1); Sodium 142 mmol/L (136-145)
[2018-04-15 07:37] LABS: Albumin Globulin Ratio 0.8 (0.9-2); Alkaline Phosphatase 68 U/L (45-117); Bilirubin Direct 0.3 mg/dl (0-0.2); Bilirubin,Total 1.1 mg/dl (0.2-1); Creatine Kinase 2341 U/L (39-308); Globulin 3.1 gm/dl (2.5-4.0); Total Protein 5.7 gm/dl (6.4-8.2)
[2018-04-15] MEDS: cloNIDine HCl 0.1 MG TAB PO SCH (08:02)
[2018-04-15] MEDS: GABAPENTIN 800 MG TAB PO SCH ×2 (08:02→15:15)
[2018-04-15] MEDS: NICOTINE 21 MG/24 HR TDSY TD SCH (08:03)
[2018-04-15] MEDS ORDERED: LORazepam 0.5 MG TAB PO PRN (08:13)
[2018-04-15] MEDS ORDERED: FOLIC ACID 400 MCG TAB PO SCH (09:00)
[2018-04-15] MEDS ORDERED: BUPRENORPHINE/NALOXONE 8/2 MG TAB SL SCH (09:00)
[2018-04-15] MEDS ORDERED: MULTIVITAMIN TAB PO SCH (09:00)
[2018-04-15] MEDS ORDERED: THIAMINE HCL 100 MG TAB PO SCH (09:00)
--- NOTE | 2018-04-15 13:46 | Psychiatric Consultation ---
Date of Consultation April 15, 2018 Impression / Recommendations Impression 37-year-old male admitted medically following polysubstance overdose in attempt to prevent withdrawal symptoms. Pt denies suicidal intention with his actions. Pt has a significant history of substance abuse, concurrent with Suboxone clinic appointments. Pt was assisted by nurse liaison with scheduling an appointment at the Suboxone clinic early next week. Inpatient D&A rehabilitation was recommended given ongoing substance use, but declines. At this time, patient is denying his overdose was in any way related to suicidality and denies ongoing SI or intent to act. Given no SI/HI, SIB, A/V hallucinations or other signs of psychosis, this appears to be more of a substance abuse issue than an acute psychiatric concern. Pt is considered psychiatrically cleared for discharge (whether AMA or at discretion of primary medical team). No acute need for inpatient mental health hospitalization. Recommending patient follow-up with appointment at the Suboxone clinic and make appointments for outpatient psychiatric treatment if necessary - recommend focus on D&A treatment. Dr. Clay Busch was directly involved in review and discussion of the patient' s case and participated in medical decision making regarding treatment recommendations. (1) Drug overdose: 04/15 - Continue medical management per primary team - No indication that overdose was a suicide attempt and therefore no criteria for inpatient mental health treatment - Psychiatrically cleared for discharge, whether AMA or at discretion of primary medical team - though would clearly recommend patient consider inpatient D&A rehabilitation as an option Encounter type: Injury intent: (2) Drug abuse: 04/16 - Recommended inpatient D&A rehabilitation, which patient declines - Appointment at [facility] scheduled for 04/19, encouraged to resume these regular visits - Pt requesting only benzodiazepines for management of his anxiety and PTSD - which is clearly contraindicated in his case. Would recommend patient seek outpatient psychiatric/D&A services after discharge if he is interested in considering other medication options. Risk Factors Assessment Male: Yes : Yes Do You Have Access To A Gun?: No Health Problems: No Mental Health Diagnoses: Yes Substance Use Disorders: Yes Previous Psychiatric Hospitalization: No Hopelessness: No Smoker: Yes Protective Factors Assessment Denominational Beliefs: No : No Responsible for Young Children: No Employed: No Stable Relationships: No Supportive Family: Yes CPT Code 20119 Psych History Identifying Data 37-year-old male admitted on 04/13/18 following overdose related to chronic substance abuse. Pt left AMA, but returned with diffuse body pain, admitted and treated for rhabdomyolysis and possible withdrawal. Psychiatry consult requested to evaluation patient for overdose. Chief Complaint "Suboxone has been saving my ass since 2006". History of Present Illness Austyn Little (Bubba) is a 37-year-old male admitted medically for the second time in the last 2 days on 04/14/18. Pt initially presented following an overdose including K2, ecstasy, and whiskey. Drug screen was also positive for benzos, opiates, marijuana, and amphetamine/methamphetamines. Pt was to be treated for rhabdomyolysis, but requested AMA discharge. He presented again with complaints of low-back and diffuse body pain. He had reported willingness for inpatient treatment. Pt was seen by this provider for psychiatric consultation to evaluate nature of the overdose. Pt was released from nursing home 4 days ago, and has not yet been able to re-establish care with his Suboxone clinic. Pt admits to this provider that he was "dealing with the withdrawal. Usually when I run out of Suboxone I buy it off the streets, but I couldn't get ahold of any. I needed something." Pt denies any suicidal nature to his overdose, reiterating many times that "nah that's not what it was, I don't want to , I just wanted to get rid of the withdrawal symptoms." Pt was asked about his psychiatric history, to which he states, "yeah, I got all that, I've been on everything, you name someone I'm sure I've seen them." Pt at this time states the only medication that benefits his "anxiety and PTSD" is "benzos - I know you're not supposed to take those with Suboxone, unless it' s Ativan, but it's the only thing that works." Pt is not able to provide any thorough information regarding his psychiatric history and is more focused on discharge at this time. Pt states, "I have a call out to my yuan, and if he says I work tomorrow, I'm getting out of here. I really don't like AMA, but I gotta work. I would leave around 4:00 if he calls me back." Pt denies SI/HI, paranoia, and A/V hallucinations. He is adamantly declining recommendation for inpatient rehabilitation. He denies any more concerning symptoms making himself an immediate harm to himself or others. Past Psychiatric History Previous Psych History: "yeah, I got all that. I've tried everything. You name someone and I'm sure I've seen them." Current Psychiatric Diagnosis: per previous records: anxiety, depression, substance abuse Outpatient Services: none presently aside from Suboxone clinic follow-ups Previous Psych Admissions: none reported Do You Have Access To A Gun?: No Past Medication Trials: Suboxone Gabapentin Allergies Allergy/AdvReac Type Severity Reaction Status Date / Time Penicillins Allergy Unknown Verified 04/14/18 17:21 cephalexin AdvReac Unknown gi symptoms Verified 04/14/18 17:21 Home Medications Home Medications Medication Instructions Recorded Confirmed Type buprenorphine-naloxone 3 tab SUBLINGUAL DAILY 04/14/18 04/14/18 History clonidine HCl 0.1 mg PO BID 04/14/18 04/14/18 History gabapentin 800 mg PO QID 04/14/18 04/14/18 History ibuprofen 800 mg PO TID PRN 04/14/18 04/14/18 History Substance Abuse History Significant history of substance abuse. Admits to selling and using drugs. "I' m not into uppers, I like downers", admits to recent use as above. Admits to 4 stays at inpatient D&A rehab. Personal History Living Arrangements: Homeless Employment Status: Unemployed (finds work with friends or family) Marital Status: Single Beliefs That Will Affect Care: None Patient History Medical History Tobacco abuse (Chronic) Intravenous drug abuse, 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) PTSD (post-traumatic stress disorder) (Chronic) Spontaneous pneumothorax (Resolved) Opioid abuse (Chronic 08/21/12) Anxiety (Chronic) Pulmonary embolism (Resolved) Acute renal failure (Resolved) Alcohol abuse (Chronic) Alcohol intoxication (Resolved) Dehydration (Resolved) Depression (Chronic) Drug overdose (Resolved) Hepatitis C (Chronic) Nicotine dependence, cigarettes, uncomplicated (Chronic) Opioid use disorder, severe, dependence (Chronic) Stimulant intoxication (Resolved) Suicidal ideation (Resolved) Social History Current Living Situation: Family Feels Safe at Home: Yes Smoking Status: Current every day smoker Tobacco Type: cigarettes Hx Substance Use: Yes substance use type: IV drugs Substance Use Type Other:: Pt cannot disclose Last Used Substance: Unknown Beliefs That Will Affect Care: None Preferred Language: Armenian Physical Exam Psychiatric Orientation: alert and oriented x 3 Apperance: + inappropriately dressed (wearing towel eating lunch, gage covered with shampoo) Pt appears underweight, long - decently trimmed facial hair, poor dentition Eye Contact: good eye contact Motor Behavior: steady gait and station restless, often pacing Speech: normal rate/rhythm/volume of speech (hyperproductive with fast pace, somewhat pressured) Affect: euthymic affect Mood: + anxious mood ("I just gotta get something for this anxiety") Thought Process: goal directed thought process and clear/coherent thought process Thought Content: + preoccupation (with getting Suboxone and discharge plans) Suicidal Thoughts: denies suicidal thoughts Homicidal Thoughts: denies homicidal thoughts Hallucinations: no auditory hallucinations and no visual hallucinations Cognition: recent memory grossly intact, remote memory grossly intact, attention grossly intact and language grossly intact Estimated Intelligence: consistent with education level Insight: + fair insight Judgement: + fair judgement Vital Signs (Past 24 Hours) Last Vital Signs Temp 36.3 C L 04/15/18 03:01 Pulse 69 04/15/18 07:54 Resp 16 04/15/18 03:01 BP 169/79 H 04/15/18 07:54 Pulse Ox 98 04/15/18 03:01 Review of Systems Constitutional: reports diffuse body pain, specifically lower back Cardiovascular: reports tachycardia with anxiety Respiratory: denied Gastrointestinal: denied Neurological: denied Psychiatric: denies symptoms other than stated above Total of at least 10 systems reviewed, pertinent positives as above and in HPI. Results & Data Medications Administered Buprenorphine/Naloxone (Suboxone 8 Mg/2 Mg) 3 tab SL DAILY ARTIE Stop: 05/15/18 08:59 Last Admin: 04/15/18 08:08 Dose: 3 tab Clonidine HCl (Catapres) 0.1 mg PO BID ARTIE Stop: 05/14/18 20:59 Last Admin: 04/15/18 08:02 Dose: 0.1 mg Admin: 04/14/18 20:58 Dose: 0.1 mg Folic Acid (Folvite) 400 mcg PO QAM [facility]IE Stop: 05/15/18 08:59 Last Admin: 04/15/18 08:03 Dose: 400 mcg Gabapentin (Neurontin) 800 mg PO QID [facility] Stop: 05/14/18 20:59 Last Admin: 04/15/18 08:02 Dose: 800 mg Admin: 04/14/18 20:58 Dose: 800 mg Sodium Chloride (Nss 1000ml) 1,000 mls @ 125 mls/hr IV .Q8H [facility] Stop: 05/14/18 19:50 Last Admin: 04/15/18 04:42 Dose: 125 mls/hr Infusion: 04/15/18 04:42 Dose: 125 mls/hr Admin: 04/14/18 20:58 Dose: 125 mls/hr Lorazepam (Ativan) 0.5 mg PO TID PRN PRN Reason: Anxiety Stop: 05/15/18 08:12 Last Admin: 04/15/18 10:04 Dose: 0.5 mg Miscellaneous (Remove Nicoderm Patch) 1 ea N/A HS [facility] Stop: 05/15/18 01:59 Last Admin: 04/15/18 04:42 Dose: Not Given Multivitamins (Multivitamin Tab) 1 tab PO QAM [facility] Stop: 05/15/18 08:59 Last Admin: 04/15/18 08:03 Dose: 1 tab Nicotine (Nicoderm Cq) 21 mg TD QAM [facility] Stop: 05/14/18 19:50 Last Admin: 04/15/18 08:03 Dose: Not Given Admin: 04/14/18 20:58 Dose: 21 mg Thiamine HCl (Vitamin B-1) 100 mg PO QAM [facility] Stop: 05/15/18 08:59 Last Admin: 04/15/18 08:03 Dose: 100 mg
--- NOTE | 2018-04-15 15:05 | Hospitalist Progress Note ---
Date of Service April 15, 2018 Assessment & Plan (1) Rhabdomyolysis: Secondary to prolonged Immobility Generalized pain improved CK: 4402>>2341 Continue IV Fluids monitor CK (2) Drug abuse: H/O Drug abuse. Urine drug screen: + opiates, amphetamine/methamphetamine, benzo. Negative aspirin, tylenol, ETOH today. Denies suicidal Ideation continue suboxone, clonidine Appreciate Psychiatry Input Cautious use of Narcotics, Benzos Advised to follow up with Psychiatry as outpatient Patient plans to sign out AMA despite explaining the risks involved. Informed Pscyh--No indication for Inpatient psych. (3) Alcohol abuse: Denies hx withdrawal seizures continue home gabapentin dose monitor for withdrawal (4) Elevated LFTs: probable secondary to ETOH use monitor liver functions (5) Hypoglycemia: Resolved (6) Tobacco abuse: cessation counseled nicotine patch DVT Px: SCDs Follows with Dr Martinez for drug rehab care Disposition: Patient signed out AMA despite explaining the risks/consequences Subjective Patient is seen and examined at bedside States back pain is improving Denies chest pain, dyspnea, nausea, dizziness Feels anxious during my encounter No other complaints Physical Exam 2 Vital Signs (Past 24 Hours): Last Vital Signs Temp 36.3 C L 04/15/18 03:01 Pulse 92 H 04/15/18 08:00 Resp 16 04/15/18 03:01 BP 169/79 H 04/15/18 07:54 Pulse Ox 98 04/15/18 03:01 Physical Exam: Physical Exam: Vitals signs as noted above General Appearance:Moderately built and nourished, no apparent distress, + Anxious Head: normocephalic, Atraumatic Eyes: normal inspection, EOMI Neck: supple, Trachea midline Respiratory/Chest: Normal breath sounds, CTA Cardiovascular: S1, S2, No murmur, +Tachycardia Abdomen/GI:Soft, Non tender, Bowel sounds present Extremities/Musculoskelatal:normal inspection, no edema Neurologic/Psych:AAOX3, grossly no focal neurological deficits Skin: normal color, warm Results & Data Laboratory Results Short CBC 04/15/18 Range/Units 06:22 WBC 4.52 L (4.8-10.8) K/uL Hgb 13.4 L (14.0-18.0) g/dL Hct 39.0 L (42-52) % Plt Count 176 (130-400) K/uL BMP 04/15/18 06:22 Sodium 142 Potassium 3.5 Chloride 112 H Carbon Dioxide 27 BUN 6 L D Creatinine 0.51 L Glucose 79 Calcium 8.0 L Cardiac Enzymes 04/15/18 04/15/18 Range/Units 06:22 06:22 Total Creatine Kinase 2341 H (39-308) U/L Troponin I < 0.015 (0-0.045) ng/ml Liver Function 04/15/18 Range/Units 06:22 Total Bilirubin 1.1 H (0.2-1) mg/dl Direct Bilirubin 0.3 H (0-0.2) mg/dl AST 113 H (15-37) U/L ALT 62 (12-78) U/L Alkaline Phosphatase 68 (45-117) U/L Albumin 2.6 L (3.4-5.0) gm/dl _ (1) Rhabdomyolysis Encounter type: Rhabdomyolysis type:
--- NOTE | 2018-04-15 15:45 | Discharge Summary ---
Date of Service April 15, 2018 Admission HPI Per Admitting Provider Austyn Little (Bubba) is a 37-year-old male admitted medically for the second time in the last 2 days on 04/14/18. Pt initially presented following an overdose including K2, ecstasy, and whiskey. Drug screen was also positive for benzos, opiates, marijuana, and amphetamine/methamphetamines. Pt was to be treated for rhabdomyolysis, but requested AMA discharge. He presented again with complaints of low-back and diffuse body pain. He had reported willingness for inpatient treatment. Pt was seen by this provider for psychiatric consultation to evaluate nature of the overdose. [facility] ago, and has not yet been able to re-establish care with his Suboxone clinic. Pt admits to this provider that he was "dealing with the withdrawal. Usually when I run out of Suboxone I buy it off the streets, but I couldn't get ahold of any. I needed something." Pt denies any suicidal nature to his overdose, reiterating many times that "nah that's not what it was, I don't want to , I just wanted to get rid of the withdrawal symptoms." Pt was asked about his psychiatric history, to which he states, "yeah, I got all that, I've been on everything, you name someone I'm sure I've seen them." Pt at this time states the only medication that benefits his "anxiety and PTSD" is "benzos - I know you're not supposed to take those with Suboxone, unless it' s Ativan, but it's the only thing that works." Pt is not able to provide any thorough information regarding his psychiatric history and is more focused on discharge at this time. Pt states, "I have a call out to my yuan, and if he says I work tomorrow, I'm getting out of here. I really don't like AMA, but I gotta work. I would leave around 4:00 if he calls me back." Pt denies SI/HI, paranoia, and A/V hallucinations. He is adamantly declining recommendation for inpatient rehabilitation. He denies any more concerning symptoms making himself an immediate harm to himself or others. Admission Exam Per Admitting Provider General: no apparent distress, WDWN Head: normocephalic, atraumatic Eyes: PERRL, EOM's intact, conjunctiva non-injected, anicteric ENT: normal inspection external ears, nose, mucous membranes moist Neck: supple, trachea midline, non-tender Lungs: clear, no respiratory distress, no wheezing/rhonchi/rales CV: RRR, no murmur, no pretibial edema Abd: normal BS, soft, non-tender Ext: no cyanosis, no calf tenderness Neuro: A&O x 3, pt initially not wanting to talk much, but then becomes more cooperative, flat affect, no focal deficits noted Skin: warm, dry Principal Diagnosis Drug Abuse Rhabdomyolysis Alcohol/Tobacco abuse Discharge Data Allergies Allergy/AdvReac Type Severity Reaction Status Date / Time Penicillins Allergy Unknown Verified 04/14/18 17:21 cephalexin AdvReac Unknown gi symptoms Verified 04/14/18 17:21 Consultations 04/14/18 16:23 ED Decision to Admit Stat 04/14/18 19:51 Consult Case Management - Discharge Planning Routine Consult Psychiatry Routine Procedures Performed CT head: No acute intracranial abnormality. Lumbar X ray: Mild scoliosis. No acute process. Stable postoperative changes left hip and acetabulum. CXR: Negative chest. Hospital Course (1) Rhabdomyolysis: Secondary to prolonged Immobility Generalized pain improved CK: 4402>>2341 Continue IV Fluids monitor CK (2) Drug abuse: H/O Drug abuse. Urine drug screen: + opiates, amphetamine/methamphetamine, benzo. Negative aspirin, tylenol, ETOH today. Denies suicidal Ideation continue suboxone, clonidine Appreciate Psychiatry Input Cautious use of Narcotics, Benzos Advised to follow up with Psychiatry as outpatient Patient plans to sign out AMA despite explaining the risks involved. [facility]. (3) Alcohol abuse: Denies hx withdrawal seizures continue home gabapentin dose monitor for withdrawal (4) Elevated LFTs: probable secondary to ETOH use monitor liver functions (5) Hypoglycemia: Resolved (6) Tobacco abuse: cessation counseled nicotine patch DVT Px: SCDs Follows with Dr Martinez for drug rehab care Disposition: Patient signed out AMA despite explaining the risks/consequences Total Time Total Time Spent Total Time Spent (In Minutes): 28 minutes Total Time Includes: Examination of the Patient, Discharge Planning, Medication Reconciliation and Other Discharge Plan Discharge Items Patient Disposition: Against Medical Advice Admission Data Admit Date/Time: 04/14/18 17:36 Service: Telemetry Other DC Date/Time DO NOT enter until pt leaves facility: 04/15/18 14:09
[2018-04-19 15:00] LABS: 7-Aminoclonaz, Confirm 177 NG/ML (CUTOFF=25); Amphetamine Urine, Confirm 537 NG/ML (CUTOF=250); Hydro-Alp Ur, GC/MS 126 NG/ML (CUTOFF=25); Hydrocodone Urine NEGATIVE NG/ML (CUTOFF=50); Hydromor Urine NEGATIVE NG/ML (CUTOFF=50); Hydroxyethylflurazepam, Conf NEGATIVE NG/ML (CUTOFF=50); Hydroxytriazolam NEGATIVE NG/ML (CUTOFF=50); Lorazepam, Ur GC/MS 106 NG/ML (CUTOFF=50); Morphine Urine 759 NG/ML (CUTOFF=50); Nordiazepam, Confirm NEGATIVE NG/ML (CUTOFF=50); Norhydrocodone Conf Ur NEGATIVE NG/ML (CUTOFF=50); Noroxycodone Urine NEGATIVE NG/ML (CUTOFF=50); Oxazepam Ur, GC/MS NEGATIVE NG/ML (CUTOFF=50); Oxycodone Urine NEGATIVE NG/ML (CUTOFF=50); Temazepam, Confirm NEGATIVE NG/ML (CUTOFF=50)
== END 2018-04-15 14:09 | disposition left against medical advice (07) | DRG 558 ==
LOC: ED 12:41 → 2N 17:36

== ENCOUNTER 2018-07-08 16:45 | Inpatient (IN) ==
[2018-07-08] MEDS ORDERED: SODIUM CHLORIDE 0.9% 1000ML 1,000 ML IV ONE (17:28)
[2018-07-08 17:56] LABS: Basophils # (auto) 0.02 K/uL (0-0.2); Basophils % (auto) 0.3 %; Eosinophils # (auto) 0.07 K/uL (0-0.5); Eosinophils % (auto) 1.1 %; Hematocrit (blood only) 41.3 % (42-52); Hemoglobin 14.5 g/dL (14.0-18.0); Immature Granulocytes # (auto) 0.01 K/uL (0.00-0.02); Immature Granulocytes % (auto) 0.2 %; Lymphocytes # (auto) 1.36 K/uL (1.2-3.4); Lymphocytes % (auto) 20.7 %; Mean Corpuscular Hgb Conc 35.1 g/dL (32-36); Mean Platelet Volume 8.4 fL (7.4-10.4); Monocytes # (auto) 0.61 K/uL (0.11-0.59); Monocytes % (auto) 9.3 %; Neutrophils # (auto) 4.51 K/uL (1.4-6.5); Neutrophils % (auto) 68.4 %; Platelet Count 280 K/uL (130-400); RDW Coefficient of Variation 12.5 % (11.5-14.5); RDW Standard Deviation 43.6 fL (36.4-46.3); White Blood Count 6.58 K/uL (4.8-10.8)
[2018-07-08 18:16] LABS: Alanine Aminotransferase 40 U/L (12-78); Albumin Level 3.7 gm/dl (3.4-5.0); Aspartate Aminotransferase 56 U/L (15-37); BUN Creatinine Ratio 31.9 (10-20); Blood Urea Nitrogen 22 mg/dl (7-18); Calcium 9.1 mg/dl (8.5-10.1); Carbon Dioxide 26 mmol/L (21-32); Chloride 105 mmol/L (98-107); Creatinine Clr Calc Pharmacy 132.5 ml/min; Est GFR (African American) 143.4; Est GFR (Non-African American) 123.7; Glucose 80 mg/dl (70-99); Potassium 3.6 mmol/L (3.5-5.1); Sodium 138 mmol/L (136-145)
[2018-07-08 18:24] LABS: Acetaminophen < 2 ug/ml (10-30); Salicylate < 1.7 mg/dl (2.8-20)
[2018-07-08 18:30] LABS: Alkaline Phosphatase 85 U/L (45-117); Creatine Kinase 1392 U/L (39-308); Globulin 3.8 gm/dl (2.5-4.0); Total Protein 7.5 gm/dl (6.4-8.2); Troponin I < 0.015 ng/ml (0-0.045)
--- NOTE | 2018-07-08 19:42 | CT Scan Report ---
CT head/brain wo con CT DOSE: HISTORY: Mental status change ams TECHNIQUE: Multiaxial CT images of the head were performed without the use of intravenous contrast. A dose lowering technique was utilized adhering to the principles of ALARA. Comparison: None. Findings: The paranasal sinuses and mastoid air cells are clear. The calvarium and skull base are int act. The ventricles and sulci are within normal limits. There is no mass, hematoma, midline shift, or acute infarct. Impression: No acute intracranial abnormality. The above report was generated using voice recognition software. It may contain grammatical, syntax or spelling errors. Electronically signed by: Manohar Fontaine M.D. 07/08/2018 7:41 PM
--- NOTE | 2018-07-08 19:46 | CT Scan Report ---
CT cervical spine wo con CT DOSE: 1072.90 mGy.cm HISTORY: Mental status change. Trauma. ams TECHNIQUE: Multiaxial CT images of the cervical spine were performed and reformatted in the sagittal and coronal plane without the use of contrast. A dose lowering technique was utilized adhering to th e principles of ALARA. COMPARISON: 06/25/2018 FINDINGS: Vertebral body stature is unremarkable. Grade 1 anterolisthesis C4 on C5 estimated no more than 3 mm. This is unchanged from the prior study. Considerable degenerative disc change primarily from C5 through C7. Mild degenerative changes of the posterior elements throughout. No acute bony abnormality. No change from the prior study. IMPRESSION: Degenerative change as described. No acute process. No change from the prior exam. The above report was generated using voice recognition software. It may contain grammatical, syntax or spelling errors. Electronically signed by: Manohar Fontaine M.D. 07/08/2018 7:44 PM
[2018-07-08] MEDS ORDERED: SODIUM CHLORIDE 0.9% 1000ML 1,000 ML IV SCH (20:00)
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
[2018-07-08] MEDS ORDERED: MULTI-VITAMIN INFUSION 10 ML, THIAMINE HCL 100 MG, FOLIC ACID 1 MG in SODIUM CHLORIDE 0... IV SCH (20:30)
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
[2018-07-08 20:50] LABS: Magnesium 2.5 mg/dl (1.8-2.4)
[2018-07-08] MEDS ORDERED: LORazepam 2 MG/4 ML VIAL IV PRN (21:14)
[2018-07-08] MEDS ORDERED: LORazepam 3 MG/6 ML VIAL IV PRN (21:14)
[2018-07-08] MEDS ORDERED: ACETAMINOPHEN 325 MG TAB PO PRN (21:14)
[2018-07-08] MEDS ORDERED: LORazepam 1 MG/2 ML VIAL IV PRN (21:14)
[2018-07-08] MEDS ORDERED: PROCHLORPERAZINE 5 MG in SYRINGE 4 ML IV PRN (21:14)
[2018-07-08] MEDS ORDERED: ATIVAN IV ALCOHOL WITHDRAWL IV SCH (21:15)
[2018-07-08 21:24] LABS: Lyme Ab IgG w/WB Rflx Negative (Negative); Lyme Ab IgM w/WB Rflx Negative (Negative)
[2018-07-09 05:43] LABS: Basophils # (auto) 0.01 K/uL (0-0.2); Basophils % (auto) 0.2 %; Eosinophils % (auto) 2.2 %; Hematocrit (blood only) 39.7 % (42-52); Hemoglobin 13.6 g/dL (14.0-18.0); Immature Granulocytes # (auto) 0.01 K/uL (0.00-0.02); Immature Granulocytes % (auto) 0.2 %; Lymphocytes # (auto) 1.58 K/uL (1.2-3.4); Mean Corpuscular Hgb Conc 34.3 g/dL (32-36); Mean Corpuscular Volume 96.1 fL (80-100); Mean Platelet Volume 8.4 fL (7.4-10.4); Monocytes # (auto) 0.39 K/uL (0.11-0.59); Monocytes % (auto) 8.4 %; Neutrophils # (auto) 2.56 K/uL (1.4-6.5); Platelet Count 251 K/uL (130-400); RDW Coefficient of Variation 12.6 % (11.5-14.5); RDW Standard Deviation 44.3 fL (36.4-46.3); Red Blood Count 4.13 M/uL (4.7-6.1); White Blood Count 4.65 K/uL (4.8-10.8)
[2018-07-09 06:02] LABS: Prothrombin Time 10.5 Seconds (9.0-12.0)
[2018-07-09 06:06] LABS: Albumin Level 2.9 gm/dl (3.4-5.0); Calcium 8.1 mg/dl (8.5-10.1); Est GFR (African American) 143.4; Est GFR (Non-African American) 123.7; Potassium 3.7 mmol/L (3.5-5.1)
[2018-07-09 06:20] LABS: Albumin Globulin Ratio 0.8 (0.9-2); Bilirubin,Total 0.7 mg/dl (0.2-1); Globulin 3.6 gm/dl (2.5-4.0); Total Protein 6.5 gm/dl (6.4-8.2)
[2018-07-09] MEDS: NSS + 20MEQ KCL 20 MEQ/1,000 ML BAG IV SCH ×2 (07:54→20:48)
[2018-07-09] MEDS: cloNIDine HCl 0.1 MG TAB PO SCH ×2 (07:59→20:37)
[2018-07-09] MEDS: FOLIC ACID 1 MG TAB PO SCH (07:59)
[2018-07-09] MEDS: MULTIVITAMIN TAB PO SCH (08:00)
[2018-07-09] MEDS: THIAMINE HCL 100 MG TAB PO SCH (08:00)
[2018-07-09] MEDS: ENOXAPARIN INJ 40 MG/0.4 ML SYR SQ SCH (08:00)
[2018-07-09 08:11] LABS: Appearance Urine Clear (Clear); Bacteria Urine Automated Negative (Negative); Bilirubin Urine Negative (Negative); Blood Urine Trace (Negative); Color Urine Yellow; Glucose Urine UA Negative (Negative); Ketones Urine Trace (Negative); Leukocyte Esterase Urine Negative (Negative); Nitrite Urine Negative (Negative); Protein Urine Negative (Negative); RBC Urine Automated >30 /hpf (0-4); Specific Gravity Urine 1.022 (1.000-1.030); Urobilinogen Urine Negative (Negative); pH Urine 6.5 (4.5-7.5)
[2018-07-09 08:14] LABS: Amphetamines+Metham, Urine Pos (Neg); Barbiturates, Urine Neg (Neg); Benzodiazepine, Urine Neg (Neg); Cocaine, Urine Neg (Neg); MDMA (Ecstacy), Urine Pos (Neg); Methadone, Urine Neg (Neg); Opiate, Urine Pos (Neg); Phencyclidine, Urine Neg (Neg)
[2018-07-09] MEDS ORDERED: BUPRENORPHINE/NALOXONE 8/2 MG TAB SL SCH (09:00)
[2018-07-09] MEDS ORDERED: THIAMINE HCL 100 MG TAB PO SCH (09:30)
[2018-07-09] MEDS: GABAPENTIN 800 MG TAB PO SCH ×4 (12:08→20:37)
[2018-07-09] MEDS: NICOTINE 21 MG/24 HR TDSY TD SCH (14:00)
[2018-07-09] MEDS: BUPRENORPHINE/NALOXONE 8/2 MG TAB SL SCH ×2 (14:01→20:37)
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
[2018-07-09] MEDS ORDERED: LORazepam 0.5 MG TAB PO STA (20:18)
[2018-07-10 05:48] LABS: Hematocrit (blood only) 40.3 % (42-52); Hemoglobin 13.4 g/dL (14.0-18.0); Mean Corpuscular Hgb Conc 33.3 g/dL (32-36); Mean Corpuscular Volume 97.8 fL (80-100); Mean Platelet Volume 8.6 fL (7.4-10.4); Platelet Count 239 K/uL (130-400); RDW Coefficient of Variation 12.5 % (11.5-14.5); Red Blood Count 4.12 M/uL (4.7-6.1); White Blood Count 4.62 K/uL (4.8-10.8)
[2018-07-10 06:23] LABS: BUN Creatinine Ratio 17.8 (10-20); Calcium 8.3 mg/dl (8.5-10.1); Creatinine Clr Calc Pharmacy 121.5 ml/min; Est GFR (African American) 137.7; Est GFR (Non-African American) 118.8; Potassium 4.3 mmol/L (3.5-5.1)
[2018-07-10] MEDS: THIAMINE HCL 100 MG TAB PO SCH (08:27)
[2018-07-10] MEDS: NICOTINE 21 MG/24 HR TDSY TD SCH (08:27)
[2018-07-10] MEDS: MULTIVITAMIN TAB PO SCH (08:27)
[2018-07-10] MEDS: GABAPENTIN 800 MG TAB PO SCH ×4 (08:27→20:21)
[2018-07-10] MEDS: cloNIDine HCl 0.1 MG TAB PO SCH ×2 (08:27→20:20)
[2018-07-10] MEDS: BUPRENORPHINE/NALOXONE 8/2 MG TAB SL SCH ×3 (08:27→20:19)
[2018-07-10] MEDS: ENOXAPARIN INJ 40 MG/0.4 ML SYR SQ SCH (08:28)
[2018-07-10] MEDS: FOLIC ACID 1 MG TAB PO SCH (08:28)
[2018-07-10] MEDS ORDERED: BUPRENORPHINE/NALOXONE 8/2 MG TAB SL SCH (09:00)
[2018-07-10] MEDS: SODIUM CHLORIDE 0.9% 1000ML 1,000 ML IV SCH ×2 (13:51→23:34)
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
[2018-07-10] MEDS ORDERED: LORazepam 0.5 MG TAB PO STA (21:30)
[2018-07-11] MEDS ORDERED: LORazepam 0.5 MG TAB PO STA (00:06)
[2018-07-11 05:44] LABS: Hematocrit (blood only) 42.3 % (42-52); Hemoglobin 14.3 g/dL (14.0-18.0); Mean Corpuscular Hgb Conc 33.8 g/dL (32-36); Mean Corpuscular Volume 98.1 fL (80-100); Mean Platelet Volume 8.8 fL (7.4-10.4); Platelet Count 252 K/uL (130-400); RDW Coefficient of Variation 12.4 % (11.5-14.5); RDW Standard Deviation 44.6 fL (36.4-46.3); Red Blood Count 4.31 M/uL (4.7-6.1); White Blood Count 4.23 K/uL (4.8-10.8)
[2018-07-11 06:06] LABS: BUN Creatinine Ratio 12.8 (10-20); Calcium 8.7 mg/dl (8.5-10.1); Creatinine Clr Calc Pharmacy 121.5 ml/min; Est GFR (African American) 137.7; Est GFR (Non-African American) 118.8; Potassium 4.1 mmol/L (3.5-5.1)
[2018-07-11] MEDS: THIAMINE HCL 100 MG TAB PO SCH (08:13)
[2018-07-11] MEDS: GABAPENTIN 800 MG TAB PO SCH ×4 (08:13→21:54)
[2018-07-11] MEDS: BUPRENORPHINE/NALOXONE 8/2 MG TAB SL SCH ×3 (08:13→21:56)
[2018-07-11] MEDS: FOLIC ACID 1 MG TAB PO SCH (08:13)
[2018-07-11] MEDS: NICOTINE 21 MG/24 HR TDSY TD SCH (08:13)
[2018-07-11] MEDS: cloNIDine HCl 0.1 MG TAB PO SCH ×2 (08:13→21:54)
[2018-07-11] MEDS: ENOXAPARIN INJ 40 MG/0.4 ML SYR SQ SCH (08:13)
[2018-07-11] MEDS: MULTIVITAMIN TAB PO SCH (11:57)
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
[2018-07-11] MEDS: SODIUM CHLORIDE 0.9% 1000ML 1,000 ML IV SCH (17:14)
[2018-07-12 01:55] LABS: Amphetamine Urine, Confirm 5650 NG/ML (CUTOF=250); Hydrocodone Urine NEGATIVE NG/ML (CUTOFF=50); Hydromor Urine NEGATIVE NG/ML (CUTOFF=50); Marijuana Quant, GCMS Urine 324 NG/ML (CUTOFF=5); Morphine Urine 807 NG/ML (CUTOFF=50); Norhydrocodone Conf Ur NEGATIVE NG/ML (CUTOFF=50); Noroxycodone Urine NEGATIVE NG/ML (CUTOFF=50); Oxycodone Urine NEGATIVE NG/ML (CUTOFF=50)
[2018-07-12] MEDS: NICOTINE 21 MG/24 HR TDSY TD SCH (08:42)
[2018-07-12] MEDS: cloNIDine HCl 0.1 MG TAB PO SCH ×2 (08:42→20:32)
[2018-07-12] MEDS: BUPRENORPHINE/NALOXONE 8/2 MG TAB SL SCH ×3 (08:42→20:32)
[2018-07-12] MEDS: FOLIC ACID 1 MG TAB PO SCH (08:43)
[2018-07-12] MEDS: THIAMINE HCL 100 MG TAB PO SCH (08:43)
[2018-07-12] MEDS: GABAPENTIN 800 MG TAB PO SCH ×4 (08:43→20:35)
[2018-07-12] MEDS: ENOXAPARIN INJ 40 MG/0.4 ML SYR SQ SCH (08:43)
[2018-07-12] MEDS: MULTIVITAMIN TAB PO SCH (08:43)
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
[2018-07-13] MEDS: GABAPENTIN 800 MG TAB PO SCH (08:28)
[2018-07-13] MEDS: BUPRENORPHINE/NALOXONE 8/2 MG TAB SL SCH (08:28)
[2018-07-13] MEDS: NICOTINE 21 MG/24 HR TDSY TD SCH (08:29)
[2018-07-13 08:30] LABS: Basophils # (auto) 0.02 K/uL (0-0.2); Basophils % (auto) 0.3 %; Eosinophils # (auto) 0.16 K/uL (0-0.5); Eosinophils % (auto) 2.6 %; Hematocrit (blood only) 42.4 % (42-52); Hemoglobin 14.3 g/dL (14.0-18.0); Immature Granulocytes # (auto) 0.03 K/uL (0.00-0.02); Immature Granulocytes % (auto) 0.5 %; Lymphocytes # (auto) 2.39 K/uL (1.2-3.4); Lymphocytes % (auto) 38.9 %; Mean Corpuscular Volume 97.9 fL (80-100); Mean Platelet Volume 8.8 fL (7.4-10.4); Monocytes # (auto) 0.42 K/uL (0.11-0.59); Monocytes % (auto) 6.8 %; Neutrophils # (auto) 3.12 K/uL (1.4-6.5); Neutrophils % (auto) 50.9 %; Platelet Count 258 K/uL (130-400); RDW Coefficient of Variation 12.4 % (11.5-14.5); RDW Standard Deviation 44.5 fL (36.4-46.3); Red Blood Count 4.33 M/uL (4.7-6.1); White Blood Count 6.14 K/uL (4.8-10.8)
[2018-07-13 08:33] LABS: Mean Corpuscular Hgb Conc 33.7 g/dL (32-36)
[2018-07-13] MEDS: THIAMINE HCL 100 MG TAB PO SCH (08:34)
[2018-07-13] MEDS: MULTIVITAMIN TAB PO SCH (08:34)
[2018-07-13] MEDS: ENOXAPARIN INJ 40 MG/0.4 ML SYR SQ SCH (08:34)
[2018-07-13] MEDS: FOLIC ACID 1 MG TAB PO SCH (08:36)
[2018-07-13] MEDS: cloNIDine HCl 0.1 MG TAB PO SCH (08:36)
[2018-07-13 08:48] LABS: Albumin Level 3.1 gm/dl (3.4-5.0); BUN Creatinine Ratio 15.7 (10-20); Calcium 9.2 mg/dl (8.5-10.1); Creatinine Clr Calc Pharmacy 116.9 ml/min; Est GFR (African American) 135.5; Est GFR (Non-African American) 116.9; Potassium 4.3 mmol/L (3.5-5.1)
[2018-07-13 08:51] LABS: Albumin Globulin Ratio 0.8 (0.9-2); Bilirubin,Total 0.2 mg/dl (0.2-1); Total Protein 7.1 gm/dl (6.4-8.2)
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
== END 2018-07-13 15:25 | disposition home or self-care (01) | DRG 897 ==
LOC: ED 16:45 → 4E 21:14 → SUATTDRO 21:14 → 4E 22:27

== ENCOUNTER 2019-08-17 23:50 | Inpatient (IN) ==
--- NOTE | 2019-08-18 00:18 | Emergency Department Note ---
Impression & Plan Heroin overdose, Rhabdomyolysis, Delirium ED Provider Note Name: DEISY RODRIGUEZ JR Age: 38 Sex: M Arrives Via: Ambulance Informant: Nursing, EMS ED Provider: Huey Feldman MD Chief Complaint: Heroin overdose Impression: Heroin Overdose Rhabdomyolysis Delirium Medical Decision Makin yr old male well known to department with history of heroin abuse, previous overdoses and periodically being admitted over the years for this and rhabdo. Arrives following Heroin overdose that required 3 rounds Narcan before he started breathing again. On arrival he was in excited delirium and very much appeared to be in methamphetamine/anti-cholinergic type state. Given history and findings he was repetitively given Ativan for agitation and eventually Zyprexa before he fell asleep. I did opt to delay initially giving anti- psychotic as unclear if anti-cholinergic state, but with such large doses ativan it was felt necessary. This was done in an attempt to protect both him and nursing/security staff as he was in delirious state. Given IV fluids and labs reveal he is in moderate rhabdo as well. CXR clear (post bagging, post narcan). He was monitored very closely and with being stable, yet the large amounts of sedatives on board it was felt appropriate to contact hospitalist for further monitoring. I do not feel this represents infection nor acute ICH issue given his long history of similar symptoms with drug overdoses and his findings on labs and exam. Of note, there is unconfirmed and vague story about possible intentional overdose 2 days ago. I was unable to verify this nor is there any 302 paperwork nor primary statements to this effect. Regardless, out of an abundance of caution he was placed on suicide precautions and I did pass this along to the hospitalist team Prior Medical Record and Triage/Nursing Notes reviewed by Me Additional history obtained from EMS Differentials:Overdose, toxicologic, infection, hypoglycemia, electrolyte abnormalities, cardiac sources, intracerebral event, neurologic, trauma, as well as other pathologies. Vital Signs: reviewed and remarkable for Tachy Interventions: Saline lock, Ativan 2mg IV x 6, Zyprexa 5mg IM, NSS bolus Labs:Reviewed and remarkable for elevated CK Imaging:X ray results are stated below per my interpretation: Chest: 1 view: No infiltrate, no effusion, normal cardiac border. Cardiac/Tele Monitoring: Cardiac Monitoring: An Order was placed for continuous cardiac monitoring. The monitor shows a rate of 120 with a Sinus Tach rhythm. Consults:Dr Ilya Ford Hospitalist Plan: Disposition:Hospitalization. Condition: Fair Blood pressure:Normal.No Referral necessary Prescriptions:None PDMP: n/a History of Present Illness:38 / M arrives for evaluation of overdose. Patient found by his mother earlier in the evening unresponsive and called 911. Reported he was shooting up heroin and taking a blue pill(s?). Police arrived and gave him nasal narcan, followed by 2 rounds IV narcan from EMS before patient woke up. He reportedly did required respiratory bagging until narcan started working. There is a vague report this or previous episode may have been a suicide attempt but there is no 302 and this is all 2nd, 3rd hand information. Patient has been agitated and minimally following commands for EMS. No further information about this evenings event available. ROS: Patient non verbal and not following commands thus ROS not possible Past Medical History:See Below Past Surgical History:See Below Family History:See Below Social History:See Below Home Medications:None Reported Allergies:PNC, Keflex Vitals:Blood Pressure: 128/88, Pulse 100, RR 18, O2 95% on RA Physical Exam: GENERAL: Patient is agitated/delirious appearing and in moderate distress. Constantly writhing all over the bed, non cooperative/minimally following commands EYES: No scleral icterus, unremarkable pupils. ENT: Mucous membranes dry, no nasal congestion. NECK: No masses appreciated, nomeningismus, trachea is midline. RESPIRATORY: No dyspnea. Clear to auscultation and equal bilaterally. No wheeze, no rhonchi. CARDIOVASCULAR: Tachy.No murmurs, rubs, gallops appreciated. GASTROINTESTINAL: Abdomen soft, non-tender, no peritonitis.Bowel sounds positive.No masses appreciated. BACK: No midline tenderness, no CVA tenderness EXTREMITIES: Normal motion all extremities, no cyanosis, no edema. NEUROLOGIC: Agitated, constant movement, no focal weakness, cranial nerves grossly intact. SKIN: Track tee over arms, no rash, no jaundice, no diaphoresis. PSYCH: Delirium ED Course: Times/Reassessments: Many throughout stay managing his excited delirium in drug induced state. Critical Care: I have personally spent 45 minutes of critical care time in the direct management of this patient. Acute agitated Delirium following drug overdose requiring chemical sedation with large doses of benzodiazepines and antipsychotic. This was a life/limb threatening event. This 45 minutes is in excess of all separately billable procedures. 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 Beliefs That Will Affect Care: None Current Living Situation: Parent current occupational status: unemployed Feels Safe at Home: Yes Smoking Status: Current every day smoker Tobacco Type: cigarettes ; Cigarettes Per Day: 20 ; Hx Alcohol Use: Yes Alcohol type: hard liquor Hx Substance Use: Yes substance use type: opiates, painkillers and IV drugs Substance Use Type Other:: "anything" Last Used Substance: Days (ago) Allergies Allergies Allergy/AdvReac Type Severity Reaction Status Date / Time Penicillins Allergy Intermediate Hives Verified 08/18/19 00:24 cephalexin AdvReac Intermediate gi symptoms Verified 08/18/19 00:24 Home Meds Home Medications Medication Instructions Recorded Confirmed No Known Home Medications 08/18/19 08/18/19 Results & Data (ED) Vital Signs Vital Signs - 24 hr 08/18/19 00:07 08/18/19 00:31 08/18/19 01:29 Pulse Rate 107 H Pulse Rate [Right Finger] 100 H 120 H Respiratory Rate 16 18 16 Respiratory Depth Normal Blood Pressure 135/91 Blood Pressure [Right Arm] 128/88 Blood Pressure Mean 105 Blood Pressure Mean [Right Arm] 101 Blood Pressure Position Lying Blood Pressure Position [Right Arm] Lying Pulse Oximetry 99 95 94 Oxygen Delivery Method Room Air Room Air Room Air Sepsis Recent Fever Within 48 Hours No Sepsis New/Unexplained Change in Mental Status No Sepsis Action Taken by Nursing No Action Required Laboratory Data Result diagrams: 08/18/19 00:52 08/18/19 00:52 Lab Results 08/18/19 08/18/19 08/18/19 Range/Units 00:52 00:52 00:52 WBC (4.8-10.8) K/uL RBC (4.7-6.1) M/uL Hgb (14.0-18.0) g/dL Hct (42-52) % MCV (80-100) fL MCH (25-34) pg MCHC (32-36) g/dL RDW Std Deviation (36.4-46.3) fL RDW Coeff of Agustin (11.5-14.5) % Plt Count (130-400) K/uL MPV (7.4-10.4) fL Immature Gran % (Auto) % Neut % (Auto) % Lymph % (Auto) % [place] % (Auto) % Eos % (Auto) % Baso % (Auto) % Immature Gran # (Auto) (0.00-0.02) K/uL Neut # (Auto) (1.4-6.5) K/uL Lymph # (Auto) (1.2-3.4) K/uL [place] # (Auto) (0.11-0.59) K/uL Eos # (Auto) (0-0.5) K/uL Baso # (Auto) (0-0.2) K/uL Sodium 140 (136-145) mmol/L Potassium 4.4 (3.5-5.1) mmol/L Chloride 107 (98-107) mmol/L Carbon Dioxide 24 (21-32) mmol/L Anion Gap 9.0 (3-11) BUN 26 H (7-18) mg/dl Creatinine 1.06 (0.6-1.4) mg/dl Est Cr Clr Drug Dosing 103.8 ml/min Est GFR ( Amer) 104.1 Est GFR (Non-Af Amer) 89.8 BUN/Creatinine Ratio 24.3 H (10-20) Glucose 76 (70-99) mg/dl Calcium 9.1 (8.5-10.1) mg/dl Magnesium (1.8-2.4) mg/dl Total Bilirubin 1.5 H (0.2-1) mg/dl AST 70 H (15-37) U/L ALT 67 (12-78) U/L Alkaline Phosphatase 112 (45-117) U/L Total Creatine Kinase 1029 H (39-308) U/L Troponin I < 0.015 (0-0.045) ng/ml Total Protein 8.3 H (6.4-8.2) gm/dl Albumin 4.1 (3.4-5.0) gm/dl Globulin 4.2 H (2.5-4.0) gm/dl Albumin/Globulin Ratio 1.0 (0.9-2) TSH (0.300-4.500) uIu/ml Specimen Hemolysis Salicylates 2.1 L (2.8-20) mg/dl Acetaminophen < 2 L (10-30) ug/ml Ethyl Alcohol mg/dL < 3.0 (0-3) mg/dl 08/18/19 08/18/19 08/18/19 Range/Units 00:52 00:52 00:52 WBC 10.62 (4.8-10.8) K/uL RBC 4.48 L (4.7-6.1) M/uL Hgb 14.8 (14.0-18.0) g/dL Hct 43.1 (42-52) % MCV 96.2 (80-100) fL MCH 33.0 (25-34) pg MCHC 34.3 (32-36) g/dL RDW Std Deviation 43.7 (36.4-46.3) fL RDW Coeff of Agustin 12.4 (11.5-14.5) % Plt Count 229 (130-400) K/uL MPV 8.8 (7.4-10.4) fL Immature Gran % (Auto) 0.2 % Neut % (Auto) 77.7 % Lymph % (Auto) 10.9 % [place] % (Auto) 10.4 % Eos % (Auto) 0.6 % Baso % (Auto) 0.2 % Immature Gran # (Auto) 0.02 (0.00-0.02) K/uL Neut # (Auto) 8.26 H (1.4-6.5) K/uL Lymph # (Auto) 1.16 L (1.2-3.4) K/uL [place] # (Auto) 1.10 H (0.11-0.59) K/uL Eos # (Auto) 0.06 (0-0.5) K/uL Baso # (Auto) 0.02 (0-0.2) K/uL Sodium (136-145) mmol/L Potassium (3.5-5.1) mmol/L Chloride (98-107) mmol/L Carbon Dioxide (21-32) mmol/L Anion Gap (3-11) BUN (7-18) mg/dl Creatinine (0.6-1.4) mg/dl Est Cr Clr Drug Dosing ml/min Est GFR ( Amer) Est GFR (Non-Af Amer) BUN/Creatinine Ratio (10-20) Glucose (70-99) mg/dl Calcium (8.5-10.1) mg/dl Magnesium 2.4 (1.8-2.4) mg/dl Total Bilirubin (0.2-1) mg/dl AST (15-37) U/L ALT (12-78) U/L Alkaline Phosphatase (45-117) U/L Total Creatine Kinase (39-308) U/L Troponin I (0-0.045) ng/ml Total Protein (6.4-8.2) gm/dl Albumin (3.4-5.0) gm/dl Globulin (2.5-4.0) gm/dl Albumin/Globulin Ratio (0.9-2) TSH 2.700 (0.300-4.500) uIu/ml Specimen Hemolysis Salicylates (2.8-20) mg/dl Acetaminophen (10-30) ug/ml Ethyl Alcohol mg/dL (0-3) mg/dl Administered Medications Discontinued Medications Lorazepam (Ativan) 2 mg in 4 mls @ 4 mls/min IV NOW STA Stop: 08/18/19 00:23 Last Admin: 08/18/19 00:26 Dose: 4 mls/min Documented by: [id number] Lorazepam (Ativan) 2 mg in 4 mls @ 4 mls/min IV NOW STA Stop: 08/18/19 00:40 Last Admin: 08/18/19 00:46 Dose: 4 mls/min Documented by: [id number] Lorazepam (Ativan) 2 mg in 4 mls @ 4 mls/min IV NOW STA Stop: 08/18/19 00:54 Last Admin: 08/18/19 00:58 Dose: 4 mls/min Documented by: [id number] Lorazepam (Ativan) 2 mg in 4 mls @ 4 mls/min IV NOW STA Stop: 08/18/19 01:04 Last Admin: 08/18/19 01:08 Dose: 4 mls/min Documented by: [id number] Lorazepam (Ativan) 2 mg in 4 mls @ 4 mls/min IV NOW STA Stop: 08/18/19 01:24 Last Admin: 08/18/19 01:28 Dose: 4 mls/min Documented by: [id number] Lorazepam (Ativan) 2 mg in 4 mls @ 4 mls/min IV NOW STA Stop: 08/18/19 01:38 Last Admin: 08/18/19 01:40 Dose: 4 mls/min Documented by: [id number] Sodium Chloride (Nss 1000ml) 1,000 mls @ 999 mls/hr IV .Q1H1M ONE Stop: 08/18/19 02:44 Last Admin: 08/18/19 03:15 Dose: 999 mls/hr Documented by: [id number] Lorazepam (Ativan) 2 mg in 4 mls @ 4 mls/min IV NOW STA Stop: 08/18/19 03:10 Last Admin: 08/18/19 03:15 Dose: 4 mls/min Documented by: [id number] Olanzapine (Zyprexa) 5 mg IM NOW STA Stop: 08/18/19 01:43 Last Admin: 08/18/19 01:55 Dose: 5 mg Documented by: [id number] Olanzapine (Zyprexa) 5 mg IM NOW STA Stop: 08/18/19 03:10 Last Admin: 08/18/19 03:15 Dose: 5 mg Documented by: [id number] Discharge Plan Visit Data Chief Complaint: Overdose (Accidental) Stated Complaint: OVERDOSE ED Provider: Huey Feldman Discharge Problem: Heroin overdose, Rhabdomyolysis, Delirium Discharge Instructions Interventions: ED Discharge Assessment Last Done: 08/18/19 03:23 Discharge Problem: Heroin overdose Qualifiers: Encounter type: initial encounter Injury intent: undetermined intent Qualified Code(s): T40.1X4A - Poisoning by heroin, undetermined, initial encounter Rhabdomyolysis Qualifiers: Rhabdomyolysis type: non-traumatic Qualified Code(s): M62.82 - Rhabdomyolysis
[2019-08-18] MEDS ORDERED: LORazepam 2 MG/4 ML VIAL IV STA ×7 (00:22→03:09)
[2019-08-18 01:10] LABS: Basophils # (auto) 0.02 K/uL (0-0.2); Basophils % (auto) 0.2 %; Eosinophils # (auto) 0.06 K/uL (0-0.5); Eosinophils % (auto) 0.6 %; Hematocrit (blood only) 43.1 % (42-52); Hemoglobin 14.8 g/dL (14.0-18.0); Immature Granulocytes # (auto) 0.02 K/uL (0.00-0.02); Immature Granulocytes % (auto) 0.2 %; Lymphocytes # (auto) 1.16 K/uL (1.2-3.4); Lymphocytes % (auto) 10.9 %; Mean Corpuscular Hgb Conc 34.3 g/dL (32-36); Mean Corpuscular Volume 96.2 fL (80-100); Mean Platelet Volume 8.8 fL (7.4-10.4); Monocytes % (auto) 10.4 %; Neutrophils # (auto) 8.26 K/uL (1.4-6.5); Neutrophils % (auto) 77.7 %; Platelet Count 229 K/uL (130-400); RDW Coefficient of Variation 12.4 % (11.5-14.5); RDW Standard Deviation 43.7 fL (36.4-46.3); Red Blood Count 4.48 M/uL (4.7-6.1); White Blood Count 10.62 K/uL (4.8-10.8)
[2019-08-18 01:29] LABS: Alanine Aminotransferase 67 U/L (12-78); Albumin Level 4.1 gm/dl (3.4-5.0); Aspartate Aminotransferase 70 U/L (15-37); BUN Creatinine Ratio 24.3 (10-20); Blood Urea Nitrogen 26 mg/dl (7-18); Calcium 9.1 mg/dl (8.5-10.1); Carbon Dioxide 24 mmol/L (21-32); Chloride 107 mmol/L (98-107); Creatinine Clr Calc Pharmacy 103.8 ml/min; Est GFR (African American) 104.1; Est GFR (Non-African American) 89.8; Glucose 76 mg/dl (70-99); Potassium 4.4 mmol/L (3.5-5.1); Sodium 140 mmol/L (136-145)
[2019-08-18 01:40] LABS: Acetaminophen < 2 ug/ml (10-30); Salicylate 2.1 mg/dl (2.8-20)
[2019-08-18] MEDS ORDERED: OLANZapine 10 MG/2.1 ML SDV IM STA ×2 (01:42→03:09)
[2019-08-18] MEDS ORDERED: SODIUM CHLORIDE 0.9% 1000ML 1,000 ML IV ONE (01:44)
[2019-08-18 01:45] LABS: Alkaline Phosphatase 112 U/L (45-117); Bilirubin,Total 1.5 mg/dl (0.2-1); Creatine Kinase 1029 U/L (39-308); Globulin 4.2 gm/dl (2.5-4.0); Total Protein 8.3 gm/dl (6.4-8.2); Troponin I < 0.015 ng/ml (0-0.045)
[2019-08-18] MEDS ORDERED: GABAPENTIN 600 MG TAB PO STA (02:13)
[2019-08-18] MEDS ORDERED: MULTI-VITAMIN INFUSION 10 ML, THIAMINE HCL 100 MG, FOLIC ACID 1 MG in SODIUM CHLORIDE 0... IV ONE (02:45)
--- NOTE | 2019-08-18 03:03 | History & Physical Report ---
Date of Service August 18, 2019 Assessment & Plan (1) Encephalopathy: Multifactorial : recurrent drug overdose (? Suicidality) Alcohol withdrawal hx HCV as per records Alcoholic hepatitis ongoing tobacco abuse hx pulmonary embolism as per records Medical telemetry DT precautions Resume patient home gabapentin and Suboxone once patient more awake. Ativan PRN agitation Attempt to obtain history from patient family. Suicide precautions for now Psych consult RE possible suicidality Nicotine patch PRN Social service RE discharge planning DVT prophylaxis per Lovenox subcu Full code. Attempted to contact patient's mother (Ms. Shanthi Little, [phone]) over the phone to obtain additional information. No answer. Left message for call back. Text document was generated using [employer] voice recognition software. It may contain grammatical or spelling errors. Kindly contact undersigned for clarification of any documentation item in question. History of Present Illness Chief Complaint: Confusion as per records Primary Care Provider: NO PCP History obtained from ER provider and records. Unable to obtain history from patient secondary to sedated state. Medical history significant for HCV, hx opioid abuse on Suboxone, ongoing tobacco/alcohol use, pulmonary embolism as per records. Recent confinement last month for recurrent rhabdomyolysis secondary to drug abuse. Patient found by mother to be unresponsive last night. Patient shooting heroin and taking a blue pill as per EMS. Possible suicidal ideation as per report. Subsequent agitation noted after Narcan administration by EMS. At the ER, patient received multiple doses of Ativan and Narcan for sedation. Patient currently sedated and restrained to stretcher at the ER. Medical History as above Surgical History : Pulmonary decortication as per records Family History : Could not be obtained Personal/Social history : 1.5 packs daily, daily alcohol intake, lives with mother Allergies Allergy/AdvReac Type Severity Reaction Status Date / Time Penicillins Allergy Intermediate Hives Verified 08/18/19 00:24 cephalexin AdvReac Intermediate gi symptoms Verified 08/18/19 00:24 Home Medications Home Medications Medication Instructions Recorded Confirmed Type No Known Home Medications 08/18/19 08/18/19 History Past Med/Surg History Social History Preferred Language: Scottish Communication Ability: Effective 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 Beliefs That Will Affect Care: None Current Living Situation: Parent current occupational status: unemployed Feels Safe at Home: Yes Smoking Status: Current every day smoker Tobacco Type: cigarettes ; Cigarettes Per Day: 20 ; Hx Alcohol Use: Yes Alcohol type: hard liquor Hx Substance Use: Yes substance use type: opiates, painkillers and IV drugs Substance Use Type Other:: "anything" Last Used Substance: Days (ago) Review of Systems Review of Systems: Could not be reliably obtained Physical Exam Physical Exam: GENERAL: Sedated , no respiratory distress SKIN: Normal color, warm HEENT: Alopecia, pink palpebral conjunctivae, no ptosis, dry buccal mucosa NECK : Supple, no tenderness CHEST : Decreased breath sounds , no tenderness HEART : Tachycardic , no obvious murmurs ABDOMEN: Some distention, nontender EXTREMITIES : No LE swelling/tenderness, no other conspicuous deformities noted NEUROLOGIC : Sedated, mid dilated pupils , no other gross focality Results & Data Results & Data ([facility]) Vital Signs (Past 12 Hours) Vital Signs Pulse Pulse Resp BP BP Pulse Ox 08/18/19 01:29 120 H 16 94 08/18/19 00:31 100 H 18 128/88 95 08/18/19 00:07 107 H 16 135/91 99 Laboratory Results Laboratory Results WBC 10.62 K/uL (4.8-10.8) 08/18/19 00:52 RBC 4.48 M/uL (4.7-6.1) L 08/18/19 00:52 Hgb 14.8 g/dL (14.0-18.0) 08/18/19 00:52 Hct 43.1 % (42-52) 08/18/19 00:52 MCV 96.2 fL (80-100) 08/18/19 00:52 MCH 33.0 pg (25-34) 08/18/19 00:52 MCHC 34.3 g/dL (32-36) 08/18/19 00:52 RDW Std Deviation 43.7 fL (36.4-46.3) 08/18/19 00:52 RDW Coeff of Agustin 12.4 % (11.5-14.5) 08/18/19 00:52 Plt Count 229 K/uL (130-400) 08/18/19 00:52 MPV 8.8 fL (7.4-10.4) 08/18/19 00:52 Immature Gran % (Auto) 0.2 % 08/18/19 00:52 Neut % (Auto) 77.7 % 08/18/19 00:52 Lymph % (Auto) 10.9 % 08/18/19 00:52 [place] % (Auto) 10.4 % 08/18/19 00:52 Eos % (Auto) 0.6 % 08/18/19 00:52 Baso % (Auto) 0.2 % 08/18/19 00:52 Immature Gran # (Auto) 0.02 K/uL (0.00-0.02) 08/18/19 00:52 Neut # (Auto) 8.26 K/uL (1.4-6.5) H 08/18/19 00:52 Lymph # (Auto) 1.16 K/uL (1.2-3.4) L 08/18/19 00:52 [place] # (Auto) 1.10 K/uL (0.11-0.59) H 08/18/19 00:52 Eos # (Auto) 0.06 K/uL (0-0.5) 08/18/19 00:52 Baso # (Auto) 0.02 K/uL (0-0.2) 08/18/19 00:52 Sodium 140 mmol/L (136-145) 08/18/19 00:52 Potassium 4.4 mmol/L (3.5-5.1) 08/18/19 00:52 Chloride 107 mmol/L (98-107) 08/18/19 00:52 Carbon Dioxide 24 mmol/L (21-32) 08/18/19 00:52 Anion Gap 9.0 (3-11) 08/18/19 00:52 BUN 26 mg/dl (7-18) H 08/18/19 00:52 Creatinine 1.06 mg/dl (0.6-1.4) 08/18/19 00:52 Est Cr Clr Drug Dosing 103.8 ml/min 08/18/19 00:52 Est GFR ( Amer) 104.1 08/18/19 00:52 Est GFR (Non-Af Amer) 89.8 05 00:52 BUN/Creatinine Ratio 24.3 (10-20) H 08/18/19 00:52 Glucose 76 mg/dl (70-99) 08/18/19 00:52 Calcium 9.1 mg/dl (8.5-10.1) 08/18/19 00:52 Magnesium 2.4 mg/dl (1.8-2.4) 08/18/19 00:52 Total Bilirubin 1.5 mg/dl (0.2-1) H 08/18/19 00:52 AST 70 U/L (15-37) H 08/18/19 00:52 ALT 67 U/L (12-78) 08/18/19 00:52 Alkaline Phosphatase 112 U/L (45-117) 08/18/19 00:52 Total Creatine Kinase 1029 U/L (39-308) H 08/18/19 00:52 Troponin I < 0.015 ng/ml (0-0.045) 08/18/19 00:52 Total Protein 8.3 gm/dl (6.4-8.2) H 08/18/19 00:52 Albumin 4.1 gm/dl (3.4-5.0) 08/18/19 00:52 Globulin 4.2 gm/dl (2.5-4.0) H 08/18/19 00:52 Albumin/Globulin Ratio 1.0 (0.9-2) 08/18/19 00:52 Specimen Hemolysis 08/18/19 00:52 Salicylates 2.1 mg/dl (2.8-20) L 08/18/19 00:52 Acetaminophen < 2 ug/ml (10-30) L 08/18/19 00:52 Ethyl Alcohol mg/dL < 3.0 mg/dl (0-3) 08/18/19 00:52 08/18/19 08/18/19 08/18/19 00:52 00:52 00:52 WBC RBC Hgb Hct MCV MCH MCHC RDW Std Deviation RDW Coeff of Agustin Plt Count MPV Immature Gran % (Auto) Neut % (Auto) Lymph % (Auto) [place] % (Auto) Eos % (Auto) Baso % (Auto) Immature Gran # (Auto) Neut # (Auto) Lymph # (Auto) [place] # (Auto) Eos # (Auto) Baso # (Auto) Sodium 140 Potassium 4.4 Chloride 107 Carbon Dioxide 24 Anion Gap 9.0 BUN 26 H Creatinine 1.06 Est Cr Clr Drug Dosing 103.8 Est GFR ( Amer) 104.1 Est GFR (Non-Af Amer) 89.8 BUN/Creatinine Ratio 24.3 H Glucose 76 Calcium 9.1 Magnesium Total Bilirubin 1.5 H AST 70 H ALT 67 Alkaline Phosphatase 112 Total Creatine Kinase 1029 H Troponin I < 0.015 Total Protein 8.3 H Albumin 4.1 Globulin 4.2 H Albumin/Globulin Ratio 1.0 Specimen Hemolysis Salicylates 2.1 L Acetaminophen < 2 L Ethyl Alcohol mg/dL < 3.0 08/18/19 08/18/19 00:52 00:52 WBC 10.62 RBC 4.48 L Hgb 14.8 Hct 43.1 MCV 96.2 MCH 33.0 MCHC 34.3 RDW Std Deviation 43.7 RDW Coeff of Agustin 12.4 Plt Count 229 MPV 8.8 Immature Gran % (Auto) 0.2 Neut % (Auto) 77.7 Lymph % (Auto) 10.9 [place] % (Auto) 10.4 Eos % (Auto) 0.6 Baso % (Auto) 0.2 Immature Gran # (Auto) 0.02 Neut # (Auto) 8.26 H Lymph # (Auto) 1.16 L [place] # (Auto) 1.10 H Eos # (Auto) 0.06 Baso # (Auto) 0.02 Sodium Potassium Chloride Carbon Dioxide Anion Gap BUN Creatinine Est Cr Clr Drug Dosing Est GFR ( Amer) Est GFR (Non-Af Amer) BUN/Creatinine Ratio Glucose Calcium Magnesium 2.4 Total Bilirubin AST ALT Alkaline Phosphatase Total Creatine Kinase Troponin I Total Protein Albumin Globulin Albumin/Globulin Ratio Specimen Hemolysis Salicylates Acetaminophen Ethyl Alcohol mg/dL Diagnostic Findings Chest x-ray as per my interpretation elevated right hemidiaphragm EKG as per my interpretation : Rate 90, NSR, normal axis, LVH, no ischemia
[2019-08-18] MEDS ORDERED: LORazepam 1 MG/2 ML VIAL IV PRN ×2 (03:04→05:02)
[2019-08-18] MEDS ORDERED: ACETAMINOPHEN 325 MG TAB PO PRN (05:02)
[2019-08-18] MEDS ORDERED: LORazepam 3 MG/6 ML VIAL IV PRN (05:02)
[2019-08-18] MEDS ORDERED: LORazepam 2 MG/4 ML VIAL IV PRN (05:02)
[2019-08-18] MEDS ORDERED: ATIVAN IV ALCOHOL WITHDRAWL IV PRN (05:02)
[2019-08-18] MEDS ORDERED: PROMETHAZINE HCL 12.5 MG in SODIUM CHLORIDE 0.9% 50 ML IV PRN (05:02)
[2019-08-18] MEDS ORDERED: KETOROLAC TROMETHAMINE 15 MG/ML VIAL IV PRN (05:02)
[2019-08-18] MEDS ORDERED: LACTATED RINGER'S 1,000 ML IV SCH (05:30)
[2019-08-18 06:24] LABS: Prothrombin Time 10.3 Seconds (9.0-12.0)
--- NOTE | 2019-08-18 07:50 | XRay Report ---
XR chest 1V portable HISTORY: Heroin overdose requiring bagging and narcan COMPARISON: Chest and left rib series 07/10/2019. FINDINGS: The lungs are clear. Cardiac silhouette is normal in size. No pleural effusions. No pneumot horax. IMPRESSION: No acute process. ACT 112: Negative or not required by law. Electronically signed by: Ramakrishna Joel M.D. 08/18/2019 7:48 AM
[2019-08-18] MEDS: SODIUM CHLORIDE 0.9% 1000ML 1,000 ML IV SCH ×2 (08:47→16:30)
[2019-08-18 08:54] LABS: Basophils # (auto) 0.01 K/uL (0-0.2); Basophils % (auto) 0.2 %; Eosinophils # (auto) 0.08 K/uL (0-0.5); Eosinophils % (auto) 1.3 %; Hematocrit (blood only) 38.2 % (42-52); Hemoglobin 12.9 g/dL (14.0-18.0); Immature Granulocytes # (auto) 0.01 K/uL (0.00-0.02); Immature Granulocytes % (auto) 0.2 %; Lymphocytes # (auto) 1.41 K/uL (1.2-3.4); Mean Corpuscular Hemoglobin 32.7 pg (25-34); Mean Corpuscular Hgb Conc 33.8 g/dL (32-36); Mean Platelet Volume 8.7 fL (7.4-10.4); Monocytes % (auto) 9.8 %; Neutrophils # (auto) 4.03 K/uL (1.4-6.5); Neutrophils % (auto) 65.5 %; Platelet Count 190 K/uL (130-400); RDW Coefficient of Variation 12.4 % (11.5-14.5); RDW Standard Deviation 44.1 fL (36.4-46.3); Red Blood Count 3.94 M/uL (4.7-6.1); White Blood Count 6.14 K/uL (4.8-10.8)
[2019-08-18] MEDS ORDERED: ENOXAPARIN INJ 30 MG/0.3 ML SYR SQ SCH (09:00)
[2019-08-18 09:21] LABS: Albumin Level 2.9 gm/dl (3.4-5.0); BUN Creatinine Ratio 25.5 (10-20); Calcium 8.1 mg/dl (8.5-10.1); Creatinine Clr Calc Pharmacy 152.6 ml/min; Est GFR (African American) 139.9; Est GFR (Non-African American) 120.7; Magnesium 2.3 mg/dl (1.8-2.4); Potassium 3.8 mmol/L (3.5-5.1)
[2019-08-18 09:26] LABS: Bilirubin Direct 0.5 mg/dl (0-0.2); Bilirubin,Total 1.5 mg/dl (0.2-1); Phosphorus 2.5 mg/dl (2.5-4.9); Total Protein 6.2 gm/dl (6.4-8.2)
--- NOTE | 2019-08-18 09:44 | CT Scan Report ---
CT head/brain wo con CLINICAL HISTORY: 38 years-old Male presenting with altered mental status. TECHNIQUE: Multidetector CT imaging of the head was performed without the use of intravenous contrast . IV contrast: None. One or more dose lowering techniques were used consistent with the principles of ALARA (as low as reasonably achievable), including automatic exposure control, mA or kV adjustment t o individual patient size, and/or use of iterative reconstruction. COMPARISON: 07/10/2019. CT DOSE (mGy.cm): The estimated cumulative dose is 921.40 mGy.cm. FINDINGS: Information Clerk Cashier topogram: Unremarkable. Ventricles and sulci normal in size. No hemorrhage. Brain parenchyma normal in appearance with preser guerline jc-white differentiation. No acute territorial infarct. No mass effect or midline shift. No ext ra-axial fluid collection. Paranasal sinuses and mastoid air cells clear. Calvarium intact. IMPRESSION: 1. No acute intracranial abnormality. ACT 112: Negative or not required by law. Electronically signed by: Luis Pederson M.D. 08/18/2019 9:43 AM
[2019-08-18 11:16] LABS: Appearance Urine Clear (Clear); Bilirubin Urine Negative (Negative); Blood Urine Negative (Negative); Color Urine Dark Yellow; Glucose Urine UA Negative (Negative); Ketones Urine 1+ (Negative); Leukocyte Esterase Urine Negative (Negative); Nitrite Urine Negative (Negative); Protein Urine Negative (Negative); Specific Gravity Urine 1.029 (1.000-1.030); Urobilinogen Urine Negative (Negative)
[2019-08-18 11:50] LABS: Amphetamines+Metham, Urine Pos (Neg); Barbiturates, Urine Neg (Neg); Benzodiazepine, Urine Neg (Neg); Cocaine, Urine Neg (Neg); MDMA (Ecstacy), Urine Pos (Neg); Methadone, Urine Neg (Neg); Opiate, Urine Pos (Neg); Phencyclidine, Urine Neg (Neg)
--- NOTE | 2019-08-18 12:30 | Psychiatric Consultation ---
Date of Consultation August 18, 2019 Impression / Recommendations Impression Dr. Clay Busch was directly involved in review and discussion of the patient's case and participated in medical decision making regarding treatment recommendations. RECOMMENDATIONS: 08/17 - Multiple attempts were made to evaluate the patient today for suicidality. Pt was snoring loudly during each attempt, did not wake to loud verbal stimuli. Staff report the patient has been sedated for most of the day, and they are willing to inform our team when the patient wakes up enough to participate in a productive interview - Until patient can be more thoroughly assessed, would suggest continuation of suicide protocol and 1:1 observation - Pt denied SI during 03/2018 psychiatric consultation and again denied SI during visit with our psychiatric nurse liaison earlier this morning. Pt indicated he had used substance to "get high and help the pain." - Pt did report to our liaison that he has a therapist, but no other psychiatric providers - Mother is reported to be a support. As it was mother who reported patient made questionably suicidal statements, we will attempt to reach out to her for collateral information - Will plan to reassess patient when he is able to participate in conversation Risk Factors Assessment Do You Have Access To A Gun?: No Psych History Identifying Data 38-year-old male admitted medically on 08/18/2019 after presenting to the ED with confusion. It was reported that the patient was found unresponsive at home by his mother after what was suspected to be an overdose. Psychiatric consultation was requested to evaluate patient for possible suicidality related to his polysubstance overdose. History of Present Illness Austyn Little is a 38-year-old male admitted medically on 08/18/2019 after presenting to the ED with confusion. Pt was reportedly found unresponsive by his mother after what was suspected to be a polysubstance overdose. Pt did receive several doses of Narcan and Ativan in the ED. Documentation suggests a recent hospitalization for recurrent rhabdomyolysis presumed to be secondary to drug abuse. Pt is being treated medically for multifactorial encephalopathy - suspected to be related to drug overdose and possibly alcohol withdrawal. Psychiatric consultation was requested to evaluate patient for possible suicidality, as ED documentation mentions the possibility of an intentional overdose 2 days prior to this event - but no additional information could be obtained. Patient's case was reviewed and discussed during morning report with psychiatric nurse liaison and supervising psychiatrist. Pt was most recently seen on our consult service on 04/15/2018, also with concern for intentional overdose. Pt has a long history of polysubstance abuse - tox screen in the ED was positive for opiates, amphetamine/methamphetamine, MDMA, and THC. Alcohol level was undetectable. H&P suggests the patient had been using heroin, but had also taken "a blue pill." Multiple attempts were made to meet with the patient today, who continued to be sedated after receiving a total of 14mg of lorazepam, 10mg of olanzapine, and 3 round of Narcan. Our psychiatric nurse liaison was able to interview the patient while he was eating a meal, but he did not awake for any interviews with this provider today. Information from psychiatric nurse liaison assessment can be viewed - in summary, patient indicated that he had been using numerous substance on several occasions over the past week. Pt reported to our liaison that his overdose was related to an attempt "to get high and help the pain" and denied suicidal intention related to his substance use. These current reports are consistent with statements made to this provider during a similar psychiatric consultation in 03/2018. Pt did report that he has an outpatient therapist, and also identified his mother as a support when speaking with the psychiatric nurse liaison. As patient was unable to wake from sleep to participate in interview despite multiple attempts, most psychiatric information in this document was provided from encounter with psychiatric nurse liaison assessment. Past Psychiatric History Outpatient Services: [facility] Previous Psych Ad[facility]; admitted on a 302 Do You Have Access To A Gun?: No History of Previous Suicide Attempt: No (told psych liaison "not intentionally") Past Medication Trials: Told psychiatric nurse liaison - "you name it" Allergies Allergy/AdvReac Type Severity Reaction Status Date / Time Penicillins Allergy Intermediate Hives Verified 08/18/19 00:24 cephalexin AdvReac Intermediate gi symptoms Verified 08/18/19 00:24 Home Medications Home Medications Medication Instructions Recorded Confirmed Type No Known Home Medications 08/18/19 08/18/19 History Family History Denied known family history of psychiatric conditions, but also reported sister had attempted suicide. Reports several family members who abuse "beer and weed." Substance Abuse History Admitted to liaison that he abused numerous substances in the past week (Fentanyl, Heroin, Meth...). Pt has been treated with Suboxone and Methadone in the past. He admitted to 4-5 stays in inpatient rehab, [facility]. UDS was positive for opiates, amphetamine/methamphetamine, MDMA, and THC. Alcohol was undetectable in the ED. Personal History Highest Grade Completed: G.E.D. 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 ) Marital Status: Single Number Of Children: None Beliefs That Will Affect Care: None History of Legal Problems: Told liaison he has been incarcerated over 20 times for various drug-related charges Psychological Trauma History Comment: Denied Patient History Medical History Acute renal failure (Resolved) Alcohol abuse (Chronic) Alcohol intoxication (Resolved) Anxiety (Chronic) Dehydration (Resolved) Depression (Chronic) Drug overdose (Resolved) Fracture of left pelvis (Resolved) Hepatitis C (Chronic) Intravenous drug abuse, 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) Nicotine dependence, cigarettes, uncomplicated (Chronic) Opioid abuse (Chronic 08/21/12) Opioid use disorder, severe, dependence (Chronic) PTSD (post-traumatic stress disorder) (Chronic) Pulmonary embolism (Resolved) Spontaneous pneumothorax (Resolved) Stimulant intoxication (Resolved) Suicidal ideation (Resolved) Tobacco abuse (Chronic) Surgical History History of pelvic surgery (Chronic) Family History Other No significant family history Social History Preferred Language: Romanian Communication Ability: Effective Administrative Services Coordinator Required: No Beliefs That Will Affect Care: None Current Living Situation: Parent current occupational status: unemployed Feels Safe at Home: Yes Smoking Status: Current every day smoker Tobacco Type: cigarettes ; Cigarettes Per Day: 20 ; Hx Alcohol Use: Yes Alcohol type: hard liquor Hx Substance Use: Yes substance use type: opiates, painkillers and IV drugs Substance Use Type Other:: "anything" per medical record Last Used Substance: Days (ago) Physical Exam Psychiatric: Orientation: + not alert (sleeping soundly, snoring loudly - does not arouse to loud verbal stimuli) Appearance: Unable to be observed, as patient was sleeping with sheet pulled over his face. Vital Signs (Past 24 Hours): Last Vital Signs Temp 36.3 C L 08/18/19 11:00 Pulse 74 08/18/19 10:47 Resp 20 08/18/19 10:47 BP 132/87 08/18/19 10:47 Pulse Ox 100 08/18/19 10:47 Review of Systems Pt does not wake from sleep to participate in interview. No physical complaints were verbalized during encounter. Results & Data (PSY) Medications Administered Enoxaparin Sodium (Lovenox) 30 mg SQ QAM ARTIE Stop: 09/17/19 08:59 Last Admin: 08/18/19 10:15 Dose: 30 mg Documented by: [id number] Sodium Chloride (Nss 1000ml) 1,000 mls @ 125 mls/hr IV .Q8H [facility] Stop: 09/17/19 08:29 Last Admin: 08/18/19 08:47 Dose: 125 mls/hr Documented by: [id number] Coding Level of Care Code 00245 U Intl Hosp Care Lvl 1
[2019-08-18] MEDS ORDERED: NICOTINE 21 MG/24 HR TDSY TD SCH (18:15)
--- NOTE | 2019-08-18 19:36 | Electrocardiogram Report ---
Test Reason : Blood Pressure : / mmHG Vent. Rate : 088 BPM Atrial Rate : 088 BPM P-R Int : 196 ms QRS Dur : 090 ms QT Int : 342 ms P-R-T Axes : 062 052 043 degrees QTc Int : 413 ms Normal sinus rhythm Voltage criteria for left ventricular hypertrophy Abnormal ECG When compared with ECG of 08-JUL-2018 16:52, No significant change was found Confirmed by Gianfranco Ngo ([id number]) on 08/18/2019 7:36:02 PM Referred By: REFERRED SELF Confirmed By:Pj Ngo
--- NOTE | 2019-08-18 20:33 | Communication Note ---
Date of Service: August 18, 2019 Seen with seen at the bedside Patient is awake and alert, answers most questions appropriately Admits to taking excessive doses of pain medications yesterday, old medications per his father, does not remember the name When asked if he took any IV drugs, patient states possibly Admits to drinking alcohol about 3-4 times per day, last drink before coming to the hospital Admits to smoking 1 to 2 packs of cigarettes per day Denies feeling depressed or suicidal, does report anxiety General- oriented x 2, not in distress, speaks in sentences with no effort or accessory muscle use Eyes- anicteric Neck- no JVD Lungs- clear breath sounds bilaterally, no rales/wheezes Heart- normal rate, regular rhythm; no murmurs Abdomen- normal bowel sounds, nondistended, soft, nontender Extremities- no pretibial edema, no calf tenderness Neuro- alert, oriented x 2; no gross focal neurologic deficits Skin- warm & dry Assessment and plan: Encephalopathy likely secondary to polysubstance abuse Drug screen positive for opiates, methamphetamine, MDMA, marijuana Alcohol level normal CT head: No acute process Patient given Narcan and Ativan at the ER During my exam the patient was already awake and alert Family was mostly sleepy during the day On PRN Ativan Continue to monitor closely --Patient reports he has not been taking Suboxone for 8 weeks now Mild rhabdomyolysis CK level improving Continue IV NSS Possible underlying depression, suicidality, anxiety Psychiatry unable to perform for exam today due to patient's drowsiness Continue one-to-one observation, suicide precautions Hypothermia Calcitonin normal, no leukocytosis, no focus of infection Likely from polysubstance use TSH normal Bear hugger History of HCV Other diagnoses and plan of care per Dr. Caraballo's notes
[2019-08-19] MEDS: SODIUM CHLORIDE 0.9% 1000ML 1,000 ML IV SCH (00:29)
--- NOTE | 2019-08-19 01:28 | Communication Note ---
Date of Service: August 19, 2019 Made aware by RN of patient request to leave hospital AGAINST MEDICAL ADVICE. Patient currently oriented and directable. No indication for 302 after evaluation by psychiatry nurse liaison. Patient not willing to wait for morning provider. Patient intent on departing hospital AGAINST MEDICAL ADVICE despite explanations provided and citation of risks/possible consequences arising from decision to leave AMA which includes as an extreme circumstance. Patient signed AMA paper.
[2019-08-19] MEDS ORDERED: FOLIC ACID 1 MG TAB PO SCH (09:00)
[2019-08-19] MEDS ORDERED: MULTIVITAMIN TAB PO SCH (09:00)
[2019-08-19] MEDS ORDERED: THIAMINE HCL 100 MG TAB PO SCH (09:00)
--- NOTE | 2019-08-19 10:36 | Progress Note ---
Date of Service August 19, 2019 Assessment & Plan Admission and Anticipated Discharge Date Admission Date: August 18, 2019 Subjective Case reviewed with liaison after 1 am this am. Patient has a long history of severe substance abuse, similar presentation Mar 2018. He was difficult to fully assess by [facility] and liaisons on day shift given OD/prns in ED for management. There was no evidence presented to me that this was a suicide attempt, our service involved due to recurrent nature and desire to ensure safe follow-up plan. He continued to refuse appropriate level of care for his condition which is rehab. [place] mental health law does not allow for 302 commitment for substance abuse. There was no evidence of fabrizio or psychosis in assessments completed by this service when able and primary attending was comfortable discharging the patient AMA.
--- NOTE | 2019-08-23 18:12 | Discharge Summary ---
Date of Service August 23, 2019 Admission HPI Per Admitting Provider History obtained from ER provider and records. Unable to obtain history from patient secondary to sedated state. Medical history significant for HCV, hx opioid abuse on Suboxone, ongoing tobacco/alcohol use, pulmonary embolism as per records. Recent confinement last month for recurrent rhabdomyolysis secondary to drug abuse. Patient found by mother to be unresponsive last night. Patient shooting heroin and taking a blue pill as per EMS. Possible suicidal ideation as per report. Subsequent agitation noted after Narcan administration by EMS. At the ER, patient received multiple doses of Ativan and Narcan for sedation. Patient currently sedated and restrained to stretcher at the ER. Medical History as above Surgical History : Pulmonary decortication as per records Family History : Could not be obtained Personal/Social history : 1.5 packs daily, daily alcohol intake, lives with mother Admission Exam Per Admitting Provider GENERAL: Sedated , no respiratory distress SKIN: Normal color, warm HEENT: Alopecia, pink palpebral conjunctivae, no ptosis, dry buccal mucosa NECK : Supple, no tenderness CHEST : Decreased breath sounds , no tenderness HEART : Tachycardic , no obvious murmurs ABDOMEN: Some distention, nontender EXTREMITIES : No LE swelling/tenderness, no other conspicuous deformities noted NEUROLOGIC : Sedated, mid dilated pupils , no other gross focality Principal Diagnosis Encephalopathy likely secondary to Polysubstance Abuse Discharge Exam General- oriented x 2, not in distress, speaks in sentences with no effort or accessory muscle use Eyes- anicteric Neck- no JVD Lungs- clear breath sounds bilaterally, no rales/wheezes Heart- normal rate, regular rhythm; no murmurs Abdomen- normal bowel sounds, nondistended, soft, nontender Extremities- no pretibial edema, no calf tenderness Neuro- alert, oriented x 2; no gross focal neurologic deficits Skin- warm & dry Discharge Data Allergies Allergy/AdvReac Type Severity Reaction Status Date / Time Penicillins Allergy Intermediate Hives Verified 08/18/19 00:24 cephalexin AdvReac Intermediate gi symptoms Verified 08/18/19 00:24 Consultations 08/18/19 02:03 ED Decision to Admit Stat 08/18/19 05:02 Consult Case Management - Discharge Planning Routine Consult Psychiatry Routine 08/18/19 07:20 Consult Behavioral Health Liaison Routine Ordered Studies 08/18/19 08:32 CT head/brain wo con Stat IMPRESSION: 1. No acute intracranial abnormality. Hospital Course (1) Encephalopathy: Encephalopathy likely secondary to polysubstance abuse Drug screen positive for opiates, methamphetamine, MDMA, marijuana Alcohol level normal CT head: No acute process Patient given Narcan and Ativan at the ER During my exam the patient was already awake and alert Apparently was mostly sleepy later on during the day placed on PRN Ativan --Patient reports he has not been taking Suboxone for 8 weeks now -- patient signed out against medical advice at night -- will arrange PCP ff up with RN coordinator Mild rhabdomyolysis CK level improving 1029--> 700s crea stable given IV NSS Possible underlying depression, suicidality, anxiety Psychiatry unable to perform for exam due to patient's drowsiness placed on one-to-one observation, suicide precautions per Psych: "He continued to refuse appropriate level of care for his condition which is rehab. [place] mental health law does not allow for 302 commitment for substance abuse." [facility] will call patient regarding this Hypothermia Calcitonin normal, no leukocytosis, no focus of infection Likely from polysubstance use TSH normal Bear hugger improved from 35 to 36.4 History of HCV outpatient ffup Total Time Total Time Spent Total Time Spent (In Minutes): patient signed out AMA Discharge Plan Discharge Items Patient Disposition: Against Medical Advice Reason For Visit: ENCEPHALOPATHY Discharge Diagnosis: Encephalopathy, resolved Activity: Resume your previous activity Follow-up/Referrals: PCP,NO [Primary Care Provider] - Stand-Alone Forms: [facility], Smoking Cessation Medications and DC Order Prescriptions: No Action No Known Home Medications RF: 0 Discharge Orders: Left Against Medical Advice (Routine); Ordered 08/19/19 Ordered By: William Caraballo Admission Data Admit Date/Time: 08/18/19 02:53 Attending Provider: Alejandro Catherine Admit Provider: William Caraballo Primary Care Provider: PCP,NO Other Providers: William Caraballo ; Teagan Godwin Other Interventions: Discharge Summary Assessment (RN) Last Done: 08/19/19 01:50 DC Date/Time DO NOT enter until pt leaves facility: 08/19/19 01:57
[2019-08-24 03:10] LABS: Amphetamine Urine, Confirm 4500 ng/mL (<250); Codeine Urine NEGATIVE ng/mL (<50); Hydrocodone Urine NEGATIVE ng/mL (<50); Hydromor Urine NEGATIVE ng/mL (<50); MDA negative; MDEA negative; MDMA (Ecstasy) Urine, Confirm negative; Marijuana Quant, GCMS Urine 770 ng/mL (<5); Methamphetamine, Ur Confirm >15000 ng/mL (<250); Morphine Urine 713 ng/mL (<50); Norhydrocodone Conf Ur NEGATIVE ng/mL (<50); Noroxycodone Urine NEGATIVE ng/mL (<50); Oxycodone Urine NEGATIVE ng/mL (<50); Oxymorph Urine NEGATIVE ng/mL (<50)
== END 2019-08-19 01:57 | disposition left against medical advice (07) | DRG 894 ==
LOC: ED 23:50 → 2W 08-18 02:53

== ENCOUNTER 2019-12-18 20:04 | Inpatient (IN) ==
[2019-12-18 20:36] LABS: Appearance Urine Clear (Clear); Bilirubin Urine Negative (Negative); Blood Urine Negative (Negative); Color Urine Yellow; Glucose Urine UA Negative (Negative); Ketones Urine Negative (Negative); Leukocyte Esterase Urine Negative (Negative); Nitrite Urine Negative (Negative); Protein Urine Negative (Negative); Specific Gravity Urine 1.004 (1.000-1.030); Urobilinogen Urine Negative (Negative)
[2019-12-18 20:57] LABS: Amphetamines+Metham, Urine Neg (Neg); Barbiturates, Urine Neg (Neg); Benzodiazepine, Urine Neg (Neg); Cocaine, Urine Neg (Neg); MDMA (Ecstacy), Urine Neg (Neg); Methadone, Urine Neg (Neg); Opiate, Urine Pos (Neg); Phencyclidine, Urine Neg (Neg)
[2019-12-18 21:17] LABS: Basophils # (auto) 0.02 K/uL (0-0.2); Basophils % (auto) 0.3 %; Eosinophils # (auto) 0.09 K/uL (0-0.5); Eosinophils % (auto) 1.2 %; Hemoglobin 15.4 g/dL (14.0-18.0); Immature Granulocytes # (auto) 0.01 K/uL (0.00-0.02); Immature Granulocytes % (auto) 0.1 %; Lymphocytes % (auto) 23.8 %; Mean Corpuscular Hemoglobin 32.2 pg (25-34); Mean Corpuscular Hgb Conc 33.5 g/dL (32-36); Mean Platelet Volume 8.6 fL (7.4-10.4); Monocytes # (auto) 0.91 K/uL (0.11-0.59); Neutrophils # (auto) 4.74 K/uL (1.4-6.5); Neutrophils % (auto) 62.6 %; Platelet Count 276 K/uL (130-400); RDW Coefficient of Variation 12.8 % (11.5-14.5); RDW Standard Deviation 44.2 fL (36.4-46.3); Red Blood Count 4.79 M/uL (4.7-6.1); White Blood Count 7.57 K/uL (4.8-10.8)
[2019-12-18 21:45] LABS: Albumin Level 3.7 gm/dl (3.4-5.0); BUN Creatinine Ratio 11.1 (10-20); Calcium 8.9 mg/dl (8.5-10.1); Est GFR (African American) 126.6; Est GFR (Non-African American) 109.2; Potassium 3.8 mmol/L (3.5-5.1)
[2019-12-18 21:48] LABS: Acetaminophen < 2 ug/ml (10-30)
[2019-12-18 21:55] LABS: Albumin Globulin Ratio 0.8 (0.9-2); Bilirubin,Total 0.6 mg/dl (0.2-1); Globulin 4.4 gm/dl (2.5-4.0); Thyroid Stimulating Hormone 3.06 uIu/ml (0.300-4.500); Total Protein 8.1 gm/dl (6.4-8.2)
[2019-12-18] MEDS ORDERED: NICOTINE 21 MG/24 HR TDSY TD STA (22:41)
[2019-12-18] MEDS ORDERED: BUPRENORPHINE/NALOXONE 8/2 MG TAB SL STA (23:04)
--- NOTE | 2019-12-19 00:04 | Emergency Department Note ---
History of Present Illness General Chief complaint: Mental Health Evaluation Stated complaint: MENTAL HEALTH EVAL Source: patient, RN notes reviewed and other (Mental health pension fund manager/mobile crisis referral) Mode of arrival: ambulatory Limitations: patient cooperation History of Present Illness Provider complaint: Suicidal thoughts This patient is a 39-year-old male who presents to the emergency department with complaints of suicidal thoughts. He states he has a long history of substance abuse and "overdose." He states he has had "50 Narcan injections in the past." He states he was in an argument with his girlfriend colin because he has trying to stay off of drugs for the last 6 months. His girlfriend is 4 months and also has a history of substance abuse. She has been clean and was upset with him when he admitted to getting high last week. The patient became very frustrated and felt as though he would use. He called can help. When they attempted to find the patient, he was gone. According to the patient he walked to the hospital to seek help although he states now he regrets his decision. He states he thought he would just "overdose and end it all." The patient is tearful and anxious. He is able to be redirected and somewhat cooperative. Patient states he saw his baby's heartbeat for the first time today. This will be his first child. He is currently receiving Suboxone. Home Medications Home Medications Medication Instructions Recorded Confirmed Type buprenorphine-naloxone 0.5 tab SUBLINGUAL BID 12/06/19 12/18/19 History Allergies Allergy/AdvReac Type Severity Reaction Status Date / Time Penicillins Allergy Intermediate Hives Verified 12/06/19 18:16 cephalexin AdvReac Intermediate gi symptoms Verified 12/06/19 18:16 Past Med/Surg History Medical History Acute renal failure Alcohol abuse Alcohol intoxication Anxiety Dehydration Depression Drug overdose Fracture of left pelvis Hepatitis C Intravenous drug abuse, continuous (10/01/12) Nicotine dependence, cigarettes, uncomplicated Opioid abuse (08/21/12) Opioid use disorder, severe, dependence PTSD (post-traumatic stress disorder) Pulmonary embolism Spontaneous pneumothorax Stimulant intoxication Suicidal ideation Tobacco abuse Surgical History History of pelvic surgery Family History Other No significant family history Social History Smoking Status: Current every day smoker Tobacco Type: Cigarettes Cigarettes Per Day: 20; Hx Alcohol Use: Yes Alcohol type: hard liquor Hx Substance Use: Yes Last Used Substance: Days (ago) Last Used Substance Other:: 1 day ago Substance Use Type Other:: "anything" per medical record Preferred Language: Ghanaian Communication Ability: Effective Dog Or Animal Sitter Required: No Beliefs That Will Affect Care: None Current Living Situation: Parent current occupational status: unemployed Feels Safe at Home: Yes Assistive Devices: None Review of Systems See HPI for pertinent positives & negatives. and A total of 10 systems reviewed and were otherwise negative Physical Exam Vital Signs Vital Signs - 24 hr 12/18/19 20:06 12/18/19 21:35 Temperature 36.7 C Temperature Source Oral Pulse Rate 85 Pulse Rate [Right] 86 Respiratory Rate 16 18 Respiratory Effort / Characteristics Non-Labored Spontaneous Respiratory Depth Normal Blood Pressure 151/96 H Blood Pressure [Right Arm] 133/93 Blood Pressure Mean 114 Blood Pressure Mean [Right Arm] 106 Blood Pressure Position [Right Arm] Sitting Pulse Oximetry 96 96 Oxygen Delivery Method Room Air Room Air Sepsis Recent Fever Within 48 Hours No Sepsis New/Unexplained Change in Mental Status No Sepsis Action Taken by Nursing No Action Required Vital signs reviewed. General: Anxious, tearful 39-year-old male, in no significant distress. HEENT: No scleral icterus, PERRLA, neck supple. Atraumatic. Cardiovascular: Regular rate and rhythm, no extra sounds. Pulmonary: Clear to auscultation bilaterally, normal work of breathing. Abdomen: Soft, nontender, nondistended, positive bowel sounds. Musculoskeletal: Atraumatic, no peripheral edema. Neurologic: Patient awake alert and oriented x 3 Psych: Positive SI, negative HI Skin: Warm, dry, no rash Course Administered Medications Buprenorphine/Naloxone (Buprenorphine/Naloxone 8/2 Mg Tab) 0.5 tab SL BID ARTIE Stop: 01/18/20 20:59 Last Admin: 12/19/19 21:00 Dose: 0.5 tab Documented by: [id number] Duloxetine HCl (Duloxetine Hcl 20 Mg Cap) 20 mg PO QAM ARTIE Stop: 01/18/20 13:14 Last Admin: 12/19/19 13:32 Dose: 20 mg Documented by: [id number] Hydroxyzine HCl (Hydroxyzine Hcl 25 Mg Tab) 50 mg PO HSZ PRN PRN Reason: Insomnia Stop: 01/18/20 03:26 Last Admin: 12/19/19 21:06 Dose: 50 mg Documented by: [id number] Hydroxyzine HCl (Hydroxyzine Hcl 25 Mg Tab) 25 mg PO Q4H PRN PRN Reason: Anxiety Stop: 01/18/20 03:26 Last Admin: 12/19/19 16:32 Dose: 25 mg Documented by: [id number] Miscellaneous (Remove Nicoderm Patch) 1 ea N/A [id number] [facility] Stop: 01/18/20 08:58 Last Admin: 12/19/19 10:48 Dose: Not Given Documented by: [id number] Nicotine (Nicotine 21 Mg/24 Hr Tdsy) 21 mg TD QAM ARTIE Stop: 01/18/20 08:59 Last Admin: 12/19/19 10:48 Dose: 21 mg Documented by: [id number] Discontinued Medications Buprenorphine/Naloxone (Buprenorphine/Naloxone 8/2 Mg Tab) 1 tab SL NOW STA Stop: 12/18/19 23:05 Last Admin: 12/18/19 23:47 Dose: 1 tab Documented by: [id number] Nicotine (Nicotine 21 Mg/24 Hr Tdsy) 21 mg TD NOW STA Stop: 12/18/19 22:42 Last Admin: 12/18/19 22:50 Dose: 21 mg Documented by: [id number] Medical Decision Making Differential Diagnosis Differential diagnosis: Etiologies such as psychiatric disorder, infection, hypoglycemia, electrolyte abnormalities, cardiac sources, intracerebral event, toxicological process, neurologic disorder, as well as others were entertained. Medical Records Attestation: I reviewed the patient's medical records. Home Medications Current Medication List: was personally reviewed by me Laboratory Data Attestation: I reviewed the patient's lab results. Result diagrams: 12/18/19 20:56 12/18/19 20:56 Lab Results 12/18/19 12/18/19 12/18/19 Range/Units 20:25 20:25 20:56 WBC 7.57 (4.8-10.8) K/uL RBC 4.79 (4.7-6.1) M/uL Hgb 15.4 (14.0-18.0) g/dL Hct 46.0 (42-52) % MCV 96.0 (80-100) fL MCH 32.2 (25-34) pg MCHC 33.5 (32-36) g/dL RDW Std Deviation 44.2 (36.4-46.3) fL RDW Coeff of Agustin 12.8 (11.5-14.5) % Plt Count 276 (130-400) K/uL MPV 8.6 (7.4-10.4) fL Immature Gran % (Auto) 0.1 % Neut % (Auto) 62.6 % Lymph % (Auto) 23.8 % [place] % (Auto) 12.0 % Eos % (Auto) 1.2 % Baso % (Auto) 0.3 % Neut # (Auto) 4.74 (1.4-6.5) K/uL Lymph # (Auto) 1.80 (1.2-3.4) K/uL [place] # (Auto) 0.91 H (0.11-0.59) K/uL Eos # (Auto) 0.09 (0-0.5) K/uL Baso # (Auto) 0.02 (0-0.2) K/uL Immature Gran # (Auto) 0.01 (0.00-0.02) K/uL Sodium (136-145) mmol/L Potassium (3.5-5.1) mmol/L Chloride (98-107) mmol/L Carbon Dioxide (21-32) mmol/L Anion Gap (3-11) BUN (7-18) mg/dl Creatinine (0.6-1.4) mg/dl Est Cr Clr Drug Dosing ml/min Est GFR ( Amer) Est GFR (Non-Af Amer) BUN/Creatinine Ratio (10-20) Glucose (70-99) mg/dl Calcium (8.5-10.1) mg/dl Total Bilirubin (0.2-1) mg/dl AST (15-37) U/L ALT (12-78) U/L Alkaline Phosphatase (45-117) U/L Total Protein (6.4-8.2) gm/dl Albumin (3.4-5.0) gm/dl Globulin (2.5-4.0) gm/dl Albumin/Globulin Ratio (0.9-2) TSH (0.300-4.500) uIu/ml Urine Color Yellow Urine Appearance Clear (Clear) Urine pH 7.0 (4.5-7.5) Ur Specific [place] 1.004 (1.000-1.030) Urine Protein Negative (Negative) Urine Glucose (UA) Negative (Negative) Urine Ketones Negative (Negative) Urine Blood Negative (Negative) Urine Nitrite Negative (Negative) Urine Bilirubin Negative (Negative) Urine Urobilinogen Negative (Negative) Ur Leukocyte Esterase Negative (Negative) Nasal Screen MRSA (PCR) (Negative) Salicylates (2.8-20) mg/dl Urine Opiates Screen Pos H (Neg) Ur Methadone, Qual Neg (Neg) Acetaminophen (10-30) ug/ml Urine Barbiturates Neg (Neg) Ur Phencyclidine (PCP) Neg (Neg) U Amphetamin/Meth Scrn Neg (Neg) MDMA (Ecstasy) Screen Neg (Neg) U Benzodiazepines Scrn Neg (Neg) Ur Cocaine Metabolite Neg (Neg) U Marijuana (THC) Screen Neg (Neg) Ethyl Alcohol mg/dL (0-3) mg/dl 12/18/19 12/18/19 12/18/19 Range/Units 20:56 20:56 20:56 WBC (4.8-10.8) K/uL RBC (4.7-6.1) M/uL Hgb (14.0-18.0) g/dL Hct (42-52) % MCV (80-100) fL MCH (25-34) pg MCHC (32-36) g/dL RDW Std Deviation (36.4-46.3) fL RDW Coeff of Agustin (11.5-14.5) % Plt Count (130-400) K/uL MPV (7.4-10.4) fL Immature Gran % (Auto) % Neut % (Auto) % Lymph % (Auto) % [place] % (Auto) % Eos % (Auto) % Baso % (Auto) % Neut # (Auto) (1.4-6.5) K/uL Lymph # (Auto) (1.2-3.4) K/uL [place] # (Auto) (0.11-0.59) K/uL Eos # (Auto) (0-0.5) K/uL Baso # (Auto) (0-0.2) K/uL Immature Gran # (Auto) (0.00-0.02) K/uL Sodium 137 (136-145) mmol/L Potassium 3.8 (3.5-5.1) mmol/L Chloride 103 (98-107) mmol/L Carbon Dioxide 25 (21-32) mmol/L Anion Gap 10.0 (3-11) BUN 10 (7-18) mg/dl Creatinine 0.89 (0.6-1.4) mg/dl Est Cr Clr Drug Dosing 121.0 ml/min Est GFR ( Amer) 126.6 Est GFR (Non-Af Amer) 109.2 BUN/Creatinine Ratio 11.1 (10-20) Glucose 106 H (70-99) mg/dl Calcium 8.9 (8.5-10.1) mg/dl Total Bilirubin 0.6 (0.2-1) mg/dl AST 37 (15-37) U/L ALT 40 (12-78) U/L Alkaline Phosphatase 110 (45-117) U/L Total Protein 8.1 (6.4-8.2) gm/dl Albumin 3.7 (3.4-5.0) gm/dl Globulin 4.4 H (2.5-4.0) gm/dl Albumin/Globulin Ratio 0.8 L (0.9-2) TSH 3.060 (0.300-4.500) uIu/ml Urine Color Urine Appearance (Clear) Urine pH (4.5-7.5) Ur Specific [place] (1.000-1.030) Urine Protein (Negative) Urine Glucose (UA) (Negative) Urine Ketones (Negative) Urine Blood (Negative) Urine Nitrite (Negative) Urine Bilirubin (Negative) Urine Urobilinogen (Negative) Ur Leukocyte Esterase (Negative) Nasal Screen MRSA (PCR) (Negative) Salicylates 3.0 (2.8-20) mg/dl Urine Opiates Screen (Neg) Ur Methadone, Qual (Neg) Acetaminophen < 2 L (10-30) ug/ml Urine Barbiturates (Neg) Ur Phencyclidine (PCP) (Neg) U Amphetamin/Meth Scrn (Neg) MDMA (Ecstasy) Screen (Neg) U Benzodiazepines Scrn (Neg) Ur Cocaine Metabolite (Neg) U Marijuana (THC) Screen (Neg) Ethyl Alcohol mg/dL 126.8 H (0-3) mg/dl 12/19/19 Range/Units 00:15 WBC (4.8-10.8) K/uL RBC (4.7-6.1) M/uL Hgb (14.0-18.0) g/dL Hct (42-52) % MCV (80-100) fL MCH (25-34) pg MCHC (32-36) g/dL RDW Std Deviation (36.4-46.3) fL RDW Coeff of Agustin (11.5-14.5) % Plt Count (130-400) K/uL MPV (7.4-10.4) fL Immature Gran % (Auto) % Neut % (Auto) % Lymph % (Auto) % [place] % (Auto) % Eos % (Auto) % Baso % (Auto) % Neut # (Auto) (1.4-6.5) K/uL Lymph # (Auto) (1.2-3.4) K/uL [place] # (Auto) (0.11-0.59) K/uL Eos # (Auto) (0-0.5) K/uL Baso # (Auto) (0-0.2) K/uL Immature Gran # (Auto) (0.00-0.02) K/uL Sodium (136-145) mmol/L Potassium (3.5-5.1) mmol/L Chloride (98-107) mmol/L Carbon Dioxide (21-32) mmol/L Anion Gap (3-11) BUN (7-18) mg/dl Creatinine (0.6-1.4) mg/dl Est Cr Clr Drug Dosing ml/min Est GFR ( Amer) Est GFR (Non-Af Amer) BUN/Creatinine Ratio (10-20) Glucose (70-99) mg/dl Calcium (8.5-10.1) mg/dl Total Bilirubin (0.2-1) mg/dl AST (15-37) U/L ALT (12-78) U/L Alkaline Phosphatase (45-117) U/L Total Protein (6.4-8.2) gm/dl Albumin (3.4-5.0) gm/dl Globulin (2.5-4.0) gm/dl Albumin/Globulin Ratio (0.9-2) TSH (0.300-4.500) uIu/ml Urine Color Urine Appearance (Clear) Urine pH (4.5-7.5) Ur Specific [place] (1.000-1.030) Urine Protein (Negative) Urine Glucose (UA) (Negative) Urine Ketones (Negative) Urine Blood (Negative) Urine Nitrite (Negative) Urine Bilirubin (Negative) Urine Urobilinogen (Negative) Ur Leukocyte Esterase (Negative) Nasal Screen MRSA (PCR) Negative (Negative) Salicylates (2.8-20) mg/dl Urine Opiates Screen (Neg) Ur Methadone, Qual (Neg) Acetaminophen (10-30) ug/ml Urine Barbiturates (Neg) Ur Phencyclidine (PCP) (Neg) U Amphetamin/Meth Scrn (Neg) MDMA (Ecstasy) Screen (Neg) U Benzodiazepines Scrn (Neg) Ur Cocaine Metabolite (Neg) U Marijuana (THC) Screen (Neg) Ethyl Alcohol mg/dL (0-3) mg/dl Blood Pressure Blood Pressure Findings: Normal blood pressure Blood Pressure Disposition: did not require urgent referral MDM Narrative This patient was evaluated and appeared to be anxious but in no distress. Patient was medically cleared and referred to the mental health pension fund manager. Apparently a 302 was petitioned by can help after he made suicidal statements. The patient is currently voluntary for admission. He was given a nicotine patch per his request. Patient was evaluated by [facility] S. and has been accepted for further inpatient psychiatric care. Impression & Plan Suicidal ideation, Substance abuse Discharge Plan Visit Data Chief Complaint: Mental Health Evaluation Stated Complaint: MENTAL HEALTH EVAL ED Provider: Sherron Lopez Discharge Problem: Suicidal ideation, Substance abuse Patient Disposition: Admitted As Inpatient Discharge Instructions Interventions: ED Discharge Assessment Last Done: 12/19/19 03:02
[2019-12-19] MEDS ORDERED: SODIUM CHLORIDE 0.65% NA SOLN 45 ML (OCEAN) PRN (03:27)
[2019-12-19] MEDS ORDERED: NICOTINE POLACRILEX 2 MG GUM MT PRN (03:27)
[2019-12-19] MEDS ORDERED: ACETAMINOPHEN 325 MG TAB PO PRN (03:27)
[2019-12-19] MEDS ORDERED: BISMUTH SUBSALICYLATE LIQD 236 ML PO PRN (03:27)
[2019-12-19] MEDS ORDERED: ALUMINUM/MAGNESIUM SUSP 30 ML UDC PO PRN (03:27)
[2019-12-19] MEDS ORDERED: MAGNESIUM HYDROXIDE SUSP 30 ML UDC PO PRN (03:27)
--- NOTE | 2019-12-19 08:11 | History & Physical ---
Date of Service December 19, 2019 Impression / Recommendations Impression 39-year-old male with a history of polysubstance abuse, heroin addiction on Suboxone, depression and anxiety NOS who presented to the ER after he called the crisis line reporting suicidal thoughts with a plan to overdose in the context of an argument with his girlfriend whom he lives with. He was brought in by police on a 302, but ultimately signed in voluntarily. His primary issue is substance abuse, and he reports mood and anxiety symptoms that occur when under stress, which is often caused by his addiction and legal problems. He reports a previous good response to duloxetine and would like to resume it. Although he is refusing rehab, he is willing to consider IOP and outpatient psychiatric care. Inpatient treatment is medically necessary due to the severity of symptoms and risk for suicide if discharged. (1) Depression: 12/18 -continue voluntary inpatient treatment. Every 15 minute checks for safety. -He does not meet criteria for major depression as mood symptoms are limited to a few days around stressors, and best diagnosis is depression NOS (rule out substance-induced depression versus major depression versus adjustment disorder with depressed mood). -Patient reports a previous good response to duloxetine and would like to resume it. He will need referral for outpatient psychiatric care. -Encourage group attendance and participation, work on healthy coping skills and discharge safety plan. -Family meeting with girlfriend. (2) Anxiety: 12/18 -exacerbated by break-up with girlfriend. Encourage behavioral techniques for managing anxiety, hydroxyzine as needed. -Trial of duloxetine as above. (3) Opioid use disorder, severe, dependence: 12/18 -Suboxone dose confirmed with Dr. Gilman's office; coordinate care regarding his ongoing illicit drug use and recommendations for inpatient rehab. Staff in his office informed today, and we will also send records. -Recovery protocol -Recommend inpatient rehab, which he is refusing to consider as he says he will lose his job. He is willing to consider IOP. Will asked the outreach and education social worker to coordinate with his outpatient therapist, Irving Spaulding, regarding his recommendations. (4) Intravenous drug abuse, continuous: 12/18 -recommend inpatient rehab given severity of substance abuse; f/u with PCP (Dr. Gilman) for HIV testing if needed. (5) Alcohol abuse: 12/18 -history of alcohol withdrawal, drinking several times a week, intoxicated on presentation. -Patient denies history of withdrawal symptoms and is not currently experiencing symptoms, but we will continue to monitor and institute AWSS protocol if needed. -Recommendations for inpatient rehab vs IOP as above. -Avoid medications that are addictive or abusable and coordinate care with Dr. Gilman who is prescribing multiple controlled substances. -Brief intervention was offered and accepted Intervention was greater than 5 min in length. Brief interventions include: 1. Assess Readiness to Quit, 2. Advise: Help Patient to Reduce or Abstain from Alcohol, 3. Agree: Set Specific, Feasible Goals, 4. Assist: Anticipate barriers, Problem-Solving Solutions. Social work to 5. Arrange: Referrals to appropriate treatment. Summary of intervention: The patient is in precontemplation stage with regards to transtheoretical model of change. The patient is advised to decrease alcohol consumption due to depressant effects and risk of interactions with prescription medications. The patient will be provided with recovery materials to continue to education self on how to cope with their condition without drinking. (6) Nicotine dependence, cigarettes, uncomplicated: Patch and gum as needed for cravings, smoking cessation education. (7) Hepatitis C: Follow-up with PCP as needed. 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 Chief Complaint "Had to call [facility] because I was gonna end up using, and afraid I was gonna overdose again". History of Present Illness The patient is known to us from previous hospitalizations on our unit (was recently in 08/2014), and was also seen on the consult service in 08/16/2019. In July, he was admitted to the hospitalist service for encephalopathy due to polysubstance overdose. UDS + methamphetamine, opiates, and THC. He indicated he had been using numerous recreational drugs over the past week, and overdose with intent to get high. He consistently denied suicidal ideation, and recommendations were for inpatient rehab, which he refused. He presented to the ER last night (12/18/2019) with police on a 302 warrant after he called the [facility] crisis line and reporting suicidal thoughts with a plan to overdose on drugs. He agreed to go to the walk-in center for an assessment, but did not present there or call back, and when crisis staff attempted to reach him they were unable to do so. Police were called to do a welfare check and issued a warrant. In the ER, the patient admitted to suicidal thoughts and a plan to overdose on opiates. He stated he relapsed on heroin several days prior, which led to a break-up with his girlfriend (who is with his child). He reported helplessness, hopelessness, difficulty functioning, not tending to ADLs, poor sleep and appetite, and racing thoughts, all worsening over the past week. He reports drinking 3 times a week, BAL 126.8, and longstanding substance abuse since age 15, stating "I've done everything." He used IV heroin on Wednesday, and thought it might have had fentanyl in it. He says that he has a medical marijuana card and get Suboxone from Dr. Gilman. 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 His girlfriend move out of their home on the day of presentation. Admission labs: Normal CBC, CMP, TSH, UA. MRSA screen negative. UDS + opiates, ethyl alcohol 126.8. He signed in voluntarily for treatment. He signed a release for Dr. Gilman, his Suboxone dose was confirmed this morning. On my assessment, he states he called the crisis line yesterday after an argument with his girlfriend, as he was upset and having urges to use heroin, and was afraid that he would accidentally overdosed. He states he has overdosed numerous times using drugs recreationally. He reports multiple stressors including frequent arguments with his girlfriend, who is and due in May. She also struggles with mental health and a ddiction issues. She left their apartment yesterday after the argument and is staying with family. He talked to her on the phone this morning, and states they continue to argue when he hung up on her, but hopes that they will reconcile. He continues to use heroin every few months, stating he has used approximately 3 times in the past year (but his reported timeline does not line up with information in his medical record); last use was Wednesday-Wednesday, 3 bundles of heroin, which he thinks may have been laced with fentanyl, based on what he has been hearing about heroin that is in the area. He last used meth in July, and is drinking several times a week as stated below. He states "3 relapses in a year is the best I have ever done in 22 years." He states that his mood is "good except for when we argue or I'm stressed." He reports feeling easily stressed and overwhelmed, with urges to use, anxiety, restlessness, racing thoughts, and agitation. He denies symptoms consistent with fabrizio, psychosis, and PTSD. He denies suicidal thoughts since admission, but states "sometimes I still wish I didn't come in, and did go get high." He is interested in medication "to level me out," and and referral for outpatient psychiatric care, but is refusing to consider inpatient rehab because he says he would then lose his job, and would have nowhere to live. He has not been on psychotropic medications (other than Suboxone) for about 2 years, and reports a good previous response to duloxetine. Past Psychiatric History Previous Psych History: Has seen various community providers in the past. In treatment for mood symptoms (patient reported a history of both depression and bipolar disorder), anxiety, and ADHD as a child. Abusing drugs since age 15. Per our records, he has a history of depression NOS (rule out MDD versus substance-induced depression), anxiety disorder NOS, and rule out antisocial personality disorder. He has a history of malingering as he has sought inpatient treatment in the past as a way to avoid going to penitentiary, and admitted that he lied about suicidal thoughts in order to gain admission. Current Psychiatric Diagnosis: Depression and anxiety Outpatient Services: Therapist: Irving Spaulding at [facility] > [address] Gilman at [facility] prescribes Suboxone and medical marijuana, but patient says he is not his PCP. Previous Psych Admissions: First hospitalization was at [facility] 08/2007 after heroin overdose (while on Suboxone), denied it was a suicide attempt and said he was using to get high. Do You Have Access To A Gun?: No History of Previous Suicide Attempt: Yes Describe Attempts in the Past: Numerous overdoses; last months ago. Past Medication Trials: Include but not limited to entheses from old records): Citalopram Mirtazapine Trazodone Gabapentin Zolpidem Suboxone Lorazepam Hydroxyzine Methadone Quetiapine -patient did not like it is caused restless legs while trying to sleep Duloxetine -patient states he was on this medication in penitentiary for anxiety and pain and found it helpful, but only took it for about a month Allergies Allergy/AdvReac Type Severity Reaction Status Date / Time Penicillins Allergy Intermediate Hives Verified 12/06/19 18:16 cephalexin AdvReac Intermediate gi symptoms Verified 12/06/19 18:16 Home Medications Home Medications Medication Instructions Recorded Confirmed Type buprenorphine-naloxone 0.5 tab SUBLINGUAL BID 12/06/19 12/18/19 History Family History Family History of: Alcoholism/Drug Abuse (Mother, father, sister) and Bipolar Alcohol History Hx of Alcohol Use Over the Past 12 Months: Yes (3x weekly, last drank 12/18/2019, 4 beers) AUDIT Total Score: 19 Patient reports drinking 2-3 times a week, 4-6 beers. Alcohol intake has increased over the past month in response to stress. He denies any history of withdrawal symptoms. Smoking Use Have You Smoked or Used Tobacco Products in the Last 30 Days: Yes tobacco type: cigarettes Smoking Status: Current every day smoker Smoking packs per day: 1 Substance History Hx of Prescription Med Misuse Over the Past 12 Months: Yes (Prescription opiate abuse, benzodiazepine abuse (hospitalized for overdose 07/2019)) Hx of Over the Counter Med Misuse Over the Past 12 Months: No Hx of Inhalent Misuse Over the Past 12 Months: No Hx of Organic Substance Use Over the Past 12 Months: Yes (States he has a medical marijuana card.) Hx of Illegal Substances/Street Drug Use Over Past 12 Months: Yes (IV heroin Fri., and at least 3 relapses in the past year. Hospitalized medically for OD in 07/2019) Problems as a Result of Past Substance Use: Relationships Ended, Arrested, Life out of Control and Sustained Bodily Harm Long history of addiction, starting as an adolescent, primarily opiates, has attended inpatient rehab multiple times. Has also used multiple other substances including prescription opiates, benzodiazepines, cocaine, alcohol, cannabis, LSD, PCP, methamphetamine). 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 He was living with his girlfriend, but she left due to his ongoing substance abuse. He does not drive and relies on rides from others. Mother lives in [place]. Father 2017 from cancer. Has one half sister and 1 full sister. Childhood: [employer] [employer] Highest Grade Completed: G.E.D. 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 Other Number Of Children: Girlfriend is and due in May. Beliefs That Will Affect Care: None Current Legal Problems: No (Patient denies being on parole or probation, and denies active criminal charges. States he is still paying off fines from [facility] previous arrests.) Legal Problems Comment: Numerous arrests (theft, criminal mischief, disorderly conduct, public drunkenness, drug possession/paraphernalia, harassment, reckless Rolan, burglary (felony). States he has been in penitentiary many times, and out since 01/2019, which is the longest time he has been out of penitentiary. Hx Legal Problems: Yes Hx Traumatic Life Events: Yes (Denies abuse history, but reports of 2 previous girlfriends, many losses due to drug/violence.) Patient History Medical History Acute renal failure Alcohol abuse Alcohol intoxication Anxiety Dehydration Depression Drug overdose Fracture of left pelvis Hepatitis C Intravenous drug abuse, continuous (10/01/12) Nicotine dependence, cigarettes, uncomplicated Opioid abuse (08/21/12) Opioid use disorder, severe, dependence PTSD (post-traumatic stress disorder) Pulmonary embolism Spontaneous pneumothorax Stimulant intoxication Suicidal ideation Tobacco abuse Surgical History History of pelvic surgery Family History Other No significant family history Social History Smoking Status: Current every day smoker Tobacco Type: Cigarettes Cigarettes Per Day: 20; Hx Alcohol Use: Yes Alcohol type: hard liquor Hx Substance Use: Yes Last Used Substance: Days (ago) Last Used Substance Other:: 1 day ago Substance Use Type Other:: "anything" per medical record Preferred Language: Guinean Communication Ability: Effective 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 Bald, with full gage. Seated on the edge of the bed in no acute distress. Restless and fidgeting. Eye Contact: + fair eye contact Motor Behavior: steady gait and station Speech: normal rate/rhythm/volume of speech Lisp Affect: + anxious affect and mood congruent with affect "Stressed." Thought Process: goal directed thought process and + concrete thought process Thought Content: reality based without delusions Suicidal Thoughts: denies suicidal thoughts Homicidal Thoughts: denies homicidal thoughts Hallucinations: no auditory hallucinations and no visual hallucinations Cognition: recent memory grossly intact, attention grossly intact and language grossly intact Estimated Intelligence: + below average estimated intelligence Insight: + impaired insight Judgement: + impaired judgement Vital Signs (Past 24 Hours): Last Vital Signs Temp 37 C 12/19/19 06:20 Pulse 73 12/19/19 06:21 Resp 18 12/19/19 06:20 BP 112/78 12/19/19 06:21 Pulse Ox 95 12/19/19 03:02 Exam Statement: A physical exam was performed in the ER prior to admission to the unit by Dr. Sherron Lopez. I accept that physical as correct/medical clearance for the inpatient physical exam. Results & Data (U) Laboratory Results Laboratory Results - last 24 hr 12/18/19 12/18/19 12/18/19 20:25 20:25 20:25 WBC RBC Hgb Hct MCV MCH MCHC RDW Std Deviation RDW Coeff of Agustin Plt Count MPV Immature Gran % (Auto) Neut % (Auto) Lymph % (Auto) Slope % (Auto) Eos % (Auto) Baso % (Auto) Neut # (Auto) Lymph # (Auto) Slope # (Auto) Eos # (Auto) Baso # (Auto) Immature Gran # (Auto) Sodium Potassium Chloride Carbon Dioxide Anion Gap BUN Creatinine Est Cr Clr Drug Dosing Est GFR ( Amer) Est GFR (Non-Af Amer) BUN/Creatinine Ratio Glucose Calcium Total Bilirubin AST ALT Alkaline Phosphatase Total Protein Albumin Globulin Albumin/Globulin Ratio TSH Urine Color Yellow Urine Appearance Clear Urine pH 7.0 Ur Specific [place] 1.004 Urine Protein Negative Urine Glucose (UA) Negative Urine Ketones Negative Urine Blood Negative Urine Nitrite Negative Urine Bilirubin Negative Urine Urobilinogen Negative Ur Leukocyte Esterase Negative Nasal Screen MRSA (PCR) Salicylates Urine Opiates Screen Pos H U Codeine Confrm GC/MS Pending Ur Morphine (GC/MS) Pending Ur Hydrocodone (GC/MS) Pending Ur Norhydrocodone Pending Ur Noroxycodone Pending Urine Oxycodone (GC/MS) Pending U Oxymorphone GC/MS Pending Ur Methadone, Qual Neg Ur Hydromorphone (GC/MS) Pending Acetaminophen Urine Barbiturates Neg Ur Phencyclidine (PCP) Neg U Amphetamin/Meth Scrn Neg MDMA (Ecstasy) Screen Neg U Benzodiazepines Scrn Neg Ur Cocaine Metabolite Neg U Marijuana (THC) Screen Neg Drug Screen Comment Pending Ethyl Alcohol mg/dL 12/18/19 12/18/19 12/18/19 20:56 20:56 20:56 WBC 7.57 RBC 4.79 Hgb 15.4 Hct 46.0 MCV 96.0 MCH 32.2 MCHC 33.5 RDW Std Deviation 44.2 RDW Coeff of Agustin 12.8 Plt Count 276 MPV 8.6 Immature Gran % (Auto) 0.1 Neut % (Auto) 62.6 Lymph % (Auto) 23.8 Slope % (Auto) 12.0 Eos % (Auto) 1.2 Baso % (Auto) 0.3 Neut # (Auto) 4.74 Lymph # (Auto) 1.80 Slope # (Auto) 0.91 H Eos # (Auto) 0.09 Baso # (Auto) 0.02 Immature Gran # (Auto) 0.01 Sodium 137 Potassium 3.8 Chloride 103 Carbon Dioxide 25 Anion Gap 10.0 BUN 10 Creatinine 0.89 Est Cr Clr Drug Dosing 121.0 Est GFR ( Amer) 126.6 Est GFR (Non-Af Amer) 109.2 BUN/Creatinine Ratio 11.1 Glucose 106 H Calcium 8.9 Total Bilirubin 0.6 AST 37 ALT 40 Alkaline Phosphatase 110 Total Protein 8.1 Albumin 3.7 Globulin 4.4 H Albumin/Globulin Ratio 0.8 L TSH 3.060 Urine Color Urine Appearance Urine pH Ur Specific [place] Urine Protein Urine Glucose (UA) Urine Ketones Urine Blood Urine Nitrite Urine Bilirubin Urine Urobilinogen Ur Leukocyte Esterase Nasal Screen MRSA (PCR) Salicylates 3.0 Urine Opiates Screen U Codeine Confrm GC/MS Ur Morphine (GC/MS) Ur Hydrocodone (GC/MS) Ur Norhydrocodone Ur Noroxycodone Urine Oxycodone (GC/MS) U Oxymorphone GC/MS Ur Methadone, Qual Ur Hydromorphone (GC/MS) Acetaminophen < 2 L Urine Barbiturates Ur Phencyclidine (PCP) U Amphetamin/Meth Scrn MDMA (Ecstasy) Screen U Benzodiazepines Scrn Ur Cocaine Metabolite U Marijuana (THC) Screen Drug Screen Comment Ethyl Alcohol mg/dL 12/18/19 12/19/19 20:56 00:15 WBC RBC Hgb Hct MCV MCH MCHC RDW Std Deviation RDW Coeff of Agustin Plt Count MPV Immature Gran % (Auto) Neut % (Auto) Lymph % (Auto) Slope % (Auto) Eos % (Auto) Baso % (Auto) Neut # (Auto) Lymph # (Auto) Slope # (Auto) Eos # (Auto) Baso # (Auto) Immature Gran # (Auto) Sodium Potassium Chloride Carbon Dioxide Anion Gap BUN Creatinine Est Cr Clr Drug Dosing Est GFR ( Amer) Est GFR (Non-Af Amer) BUN/Creatinine Ratio Glucose Calcium Total Bilirubin AST ALT Alkaline Phosphatase Total Protein Albumin Globulin Albumin/Globulin Ratio TSH Urine Color Urine Appearance Urine pH Ur Specific [place] Urine Protein Urine Glucose (UA) Urine Ketones Urine Blood Urine Nitrite Urine Bilirubin Urine Urobilinogen Ur Leukocyte Esterase Nasal Screen MRSA (PCR) Negative Salicylates Urine Opiates Screen U Codeine Confrm GC/MS Ur Morphine (GC/MS) Ur Hydrocodone (GC/MS) Ur Norhydrocodone Ur Noroxycodone Urine Oxycodone (GC/MS) U Oxymorphone GC/MS Ur Methadone, Qual Ur Hydromorphone (GC/MS) Acetaminophen Urine Barbiturates Ur Phencyclidine (PCP) U Amphetamin/Meth Scrn MDMA (Ecstasy) Screen U Benzodiazepines Scrn Ur Cocaine Metabolite U Marijuana (THC) Screen Drug Screen Comment Ethyl Alcohol mg/dL 126.8 H Current Inpatient Medications Current Inpatient Medications: Current Inpatient Medications Acetaminophen (Acetaminophen 325 Mg Tab) 650 mg PO Q4H PRN PRN Reason: Headache or Minor Fever Stop: 01/18/20 03:26 Al Hydrox/Mg Hydrox/Simethicone (Aluminum/Magnesium Susp 30 Ml Udc) 30 ml PO Q4H PRN PRN Reason: GI Upset Stop: 01/18/20 03:26 Bismuth Subsalicylate (Bismuth Subsalicylate Liqd 236 Ml) 15 ml PO PRN PRN PRN Reason: Loose Stool Stop: 01/18/20 03:26 Hydroxyzine HCl (Hydroxyzine Hcl 25 Mg Tab) 50 mg PO HSZ PRN PRN Reason: Insomnia Stop: 01/18/20 03:26 Hydroxyzine HCl (Hydroxyzine Hcl 25 Mg Tab) 25 mg PO Q4H PRN PRN Reason: Anxiety Stop: 01/18/20 03:26 Magnesium Hydroxide (Magnesium Hydroxide Susp 30 Ml Udc) 30 ml PO DAILY PRN PRN Reason: Constipation Stop: 01/18/20 03:26 Miscellaneous (Remove Nicoderm Patch) 1 ea N/A DAILY@[id number] [facility] Stop: 01/18/20 08:58 Nicotine (Nicotine 21 Mg/24 Hr Tdsy) 21 mg TD QAM [facility] Stop: 01/18/20 08:59 Nicotine Polacrilex (Nicotine Polacrilex 2 Mg Gum) 1 piece MT PRN PRN PRN Reason: Nicotine Withdrawal Stop: 01/18/20 03:26 Sodium Chloride (Sodium Chloride 0.65% Na Soln 45 Ml ([place])) 1 - 2 sprays NA PRN PRN PRN Reason: Nasal Dryness/Congestion Stop: 01/18/20 03:26
[2019-12-19] MEDS: NICOTINE 21 MG/24 HR TDSY TD SCH (10:48)
[2019-12-19] MEDS: DULOXETINE HCL 20 MG CAP PO SCH (13:32)
[2019-12-19] MEDS: BUPRENORPHINE/NALOXONE 8/2 MG TAB SL SCH (21:00)
[2019-12-20] MEDS: BUPRENORPHINE/NALOXONE 8/2 MG TAB SL SCH ×2 (10:18→20:58)
[2019-12-20] MEDS: NICOTINE 21 MG/24 HR TDSY TD SCH (10:18)
[2019-12-20] MEDS: DULOXETINE HCL 20 MG CAP PO SCH (10:20)
--- NOTE | 2019-12-20 12:05 | Psychiatric Progress Note ---
Date of Service December 20, 2019 Impression / Recommendations Impression 39-year-old male with a history of polysubstance abuse, heroin addiction on Suboxone, depression and anxiety NOS who presented to the ER after he called the crisis line reporting suicidal thoughts with a plan to overdose in the context of an argument with his girlfriend whom he lives with. He was brought in by police on a 302, but ultimately signed in voluntarily. His primary issue is substance abuse, and he reports mood and anxiety symptoms that occur when under stress, which is often caused by his addiction and legal problems. He reports a previous good response to duloxetine and would like to resume it. Although he is refusing rehab, he is willing to consider IOP and outpatient psychiatric care. Phone meeting with girlfriend was attempted today, but was not productive and ended abruptly after only a few minutes with patient leaving the office. Inpatient treatment is medically necessary due to the severity of symptoms and risk for suicide if discharged. (1) Depression: 12/18 -continue voluntary inpatient treatment. Every 15 minute checks for safety. -He does not meet criteria for major depression as mood symptoms are limited to a few days around stressors, and best diagnosis is depression NOS (rule out substance-induced depression versus major depression versus adjustment disorder with depressed mood). -Patient reports a previous good response to duloxetine and would like to resume it. He will need referral for outpatient psychiatric care. -Encourage group attendance and participation, work on healthy coping skills and discharge safety plan. -Family meeting with girlfriend. 12/19 - Continue duloxetine at 20mg. Discussed titration; however, patient feels sweating has become worse since taking duloxetine. Discussed watchful waiting at this time, will not yet increase dose. Pt agreeable with this - Attempted phone meeting with girlfriend today, ended abruptly with patient storming out of office - Coordinate aftercare (2) Anxiety: 12/18 -exacerbated by break-up with girlfriend. Encourage behavioral techniques for managing anxiety, hydroxyzine as needed. -Trial of duloxetine as above. 12/19 - As above - Encourage attendance of group and recreational programming and assist with development of healthy and effective coping strategies (3) Opioid use disorder, severe, dependence: 12/18 -Suboxone dose confirmed with Dr. Gilman's office; coordinate care regarding his ongoing illicit drug use and recommendations for inpatient rehab. Staff in his office informed today, and we will also send records. -Recovery protocol -Recommend inpatient rehab, which he is refusing to consider as he says he will lose his job. He is willing to consider IOP. Will asked the manager social to coordinate with his outpatient therapist, Irving Spaulding, regarding his recommendations. 12/19 - As above, still refusing rehab (4) Intravenous drug abuse, continuous: 12/18 -recommend inpatient rehab given severity of substance abuse; f/u with PCP (Dr. Gilman) for HIV testing if needed. 12/19 - As above, still refusing rehab (5) Alcohol abuse: 12/18 -history of alcohol withdrawal, drinking several times a week, intoxicated on presentation. -Patient denies history of withdrawal symptoms and is not currently experiencing symptoms, but we will continue to monitor and institute AWSS protocol if needed. -Recommendations for inpatient rehab vs IOP as above. -Avoid medications that are addictive or abusable and coordinate care with Dr. Gilman who is prescribing multiple controlled substances. -Brief intervention was offered and accepted Intervention was greater than 5 min in length. Brief interventions include: 1. Assess Readiness to Quit, 2. Advise: Help Patient to Reduce or Abstain from Alcohol, 3. Agree: Set Specific, Feasible Goals, 4. Assist: Anticipate barriers, Problem-Solving Solutions. Social work to 5. Arrange: Referrals to appropriate treatment. Summary of intervention: The patient is in precontemplation stage with regards to transtheoretical model of change. The patient is advised to decrease alcohol consumption due to depressant effects and risk of interactions with prescription medications. The patient will be provided with recovery materials to continue to education self on how to cope with their condition without drinking. 12/19 - Maintains he cannot consider inpatient D&A rehab as "I'll lose my job" - reports interest in continuing outpatient D&A counseling (6) Nicotine dependence, cigarettes, uncomplicated: Patch and gum as needed for cravings, smoking cessation education. (7) Hepatitis C: Follow-up with PCP as needed. 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 Chief Complaint "I was doing okay until after lunch, and then I got nauseous." Review of Systems Notes Constitutional: reports worsened sweating Cardiovascular: denied Respiratory: denied Gastrointestinal: reports nausea, no episodes of emesis today Neurological: denied Psychiatric: denies symptoms other than stated above Total of at least 10 systems reviewed, pertinent positives as above and in HPI. Sleep Information Total Hours of Sleep: 11 Sleep Comments: pt appeared to sleep 4 hrs during evening shift. pt on q-15 minute checks Meal Information Percent Meal Consumed - Breakfast: 0 Percent Meal Consumed - Lunch: 50 Percent Meal Consumed - Dinner: 0 Nutrition Comment: Pt is sleeping Subjective Subjective Patient was seen & assessed and interval progress reviewed with treatment team. Staff report the patient slept most of the day yesterday, totaling 11+ hours. It was reported that he fought with his girlfriend over the phone last evening. Pt was seen today to assess progress since admission. Pt states "I was doing okay until after lunch, and then I got nauseous." Pt states that his appetite has been normal for him. He denies episodes of emesis today. Pt admits to continued diaphoresis, but believes it has worsened since starting duloxetine. He was hesitant to titrate the dose of the medication for that reason. Pt denies SI today and reports he has attended "two groups so far today." Pt does admit that the phone meeting with his girlfriend did not go well, stating "she just started right off the bat by arguing, so I got up and left." Pt states the meeting only lasted "about 2 minutes" and "anything I said she told me it was a lie." Pt states he is planning to talk with his girlfriend over the phone tonight. Pt continues to decline recommendation for inpatient rehab as "I'll lose my job." He is willing for medication management referrals. Pt denies other needs or concerns at this time. Physical Exam Psychiatric Orientation: alert, oriented x 3 and + guarded (superficially cooperative ) Apperance: appropriately dressed, appropriately groomed and appeared stated age obvious diaphoresis, wiping sweat from face with hand Eye Contact: + fair eye contact Motor Behavior: no abnormal motor movements (though frequently wiping sweat from face with hand) Speech: normal rate/rhythm/volume of speech Affect: + blunted affect and mood congruent with affect Mood: + depressed mood Thought Process: goal directed thought process, clear/coherent thought process and + concrete thought process Thought Content: reality based without delusions; no hopelessness and no wo rthlessness Suicidal Thoughts: denies suicidal thoughts and denies suicidal intent Homicidal Thoughts: denies homicidal thoughts Hallucinations: no auditory hallucinations and no visual hallucinations Cognition: recent memory grossly intact, attention grossly intact and language grossly intact Insight: + poor insight Judgement: + poor judgement Vital Signs (Past 24 Hours) Last Vital Signs Temp 37.2 C 12/20/19 06:24 Pulse 71 12/20/19 06:24 Resp 16 12/20/19 06:24 BP 137/88 12/20/19 06:24 Pulse Ox 95 12/19/19 03:02 Results & Data ([facility]) Current Inpatient Medications Current Inpatient Medications: Current Inpatient Medications Acetaminophen (Acetaminophen 325 Mg Tab) 650 mg PO Q4H PRN PRN Reason: Headache or Minor Fever Stop: 01/18/20 03:26 Al Hydrox/Mg Hydrox/Simethicone (Aluminum/Magnesium Susp 30 Ml Udc) 30 ml PO Q4H PRN PRN Reason: GI Upset Stop: 01/18/20 03:26 Bismuth Subsalicylate (Bismuth Subsalicylate Liqd 236 Ml) 15 ml PO PRN PRN PRN Reason: Loose Stool Stop: 01/18/20 03:26 Buprenorphine/Naloxone (Buprenorphine/Naloxone 8/2 Mg Tab) 0.5 tab SL BID ARTIE Stop: 01/18/20 20:59 Last Admin: 12/20/19 10:18 Dose: 0.5 tab Documented by: Duloxetine HCl (Duloxetine Hcl 20 Mg Cap) 20 mg PO QAM ARTIE Stop: 01/18/20 13:14 Last Admin: 12/20/19 10:20 Dose: 20 mg Documented by: Hydroxyzine HCl (Hydroxyzine Hcl 25 Mg Tab) 50 mg PO HSZ PRN PRN Reason: Insomnia Stop: 01/18/20 03:26 Last Admin: 12/19/19 21:06 Dose: 50 mg Documented by: Hydroxyzine HCl (Hydroxyzine Hcl 25 Mg Tab) 25 mg PO Q4H PRN PRN Reason: Anxiety Stop: 01/18/20 03:26 Last Admin: 12/19/19 16:32 Dose: 25 mg Documented by: Magnesium Hydroxide (Magnesium Hydroxide Susp 30 Ml Udc) 30 ml PO DAILY PRN PRN Reason: Constipation Stop: 01/18/20 03:26 Miscellaneous (Remove Nicoderm Patch) 1 ea N/A DAILY@0859 [facility] Stop: 01/18/20 08:58 Last Admin: 12/20/19 10:18 Dose: 1 ea Documented by: Nicotine (Nicotine 21 Mg/24 Hr Tdsy) 21 mg TD QAM [facility] Stop: 01/18/20 08:59 Last Admin: 12/20/19 10:18 Dose: 21 mg Documented by: Nicotine Polacrilex (Nicotine Polacrilex 2 Mg Gum) 1 piece MT PRN PRN PRN Reason: Nicotine Withdrawal Stop: 01/18/20 03:26 Sodium Chloride (Sodium Chloride 0.65% Na Soln 45 Ml (Johnson)) 1 - 2 sprays NA PRN PRN PRN Reason: Nasal Dryness/Congestion Stop: 01/18/20 03:26 Mental Health & Subst Abuse Tx Therapist Name of Therapist: Chavez Spaulding Shop And Alteration Tailor Name of Shop And Alteration Tailor: none Post Discharge Appointments Primary Care Physician Name Of Family Doctor: Dr. Ml Mckeon Date of Appointment with PCP: 12/22/19 Time of Appointment with PCP: 2:30pm
[2019-12-21 07:41] LABS: Codeine Urine 53 ng/mL (<50); Hydrocodone Urine NEGATIVE ng/mL (<50); Hydromor Urine NEGATIVE ng/mL (<50); Morphine Urine 3520 ng/mL (<50); Norhydrocodone Conf Ur NEGATIVE ng/mL (<50); Noroxycodone Urine NEGATIVE ng/mL (<50); Oxycodone Urine NEGATIVE ng/mL (<50); Oxymorph Urine NEGATIVE ng/mL (<50)
[2019-12-21] MEDS: BUPRENORPHINE/NALOXONE 8/2 MG TAB SL SCH ×2 (09:52→20:16)
[2019-12-21] MEDS: NICOTINE 21 MG/24 HR TDSY TD SCH (09:52)
[2019-12-21] MEDS: DULOXETINE HCL 20 MG CAP PO SCH (09:52)
--- NOTE | 2019-12-21 11:30 | Psychiatric Progress Note ---
Date of Service December 21, 2019 Impression / Recommendations Impression 39-year-old male with a history of polysubstance abuse, heroin addiction on Suboxone, depression and anxiety NOS who presented to the ER after he called the crisis line reporting suicidal thoughts with a plan to overdose in the context of an argument with his girlfriend whom he lives with. He was brought in by police on a 302, but ultimately signed in voluntarily. His primary issue is substance abuse, and he reports mood and anxiety symptoms that occur when under stress, which is often caused by his addiction and legal problems. He reports a previous good response to duloxetine and would like to resume it. Although he is refusing rehab, he is willing to consider IOP and outpatient psychiatric care. Phone meeting with girlfriend was attempted today, but was not productive and ended abruptly after only a few minutes with patient leaving the office. Inpatient treatment is medically necessary due to the severity of symptoms and risk for suicide if discharged. (1) Depression: 12/18 -continue voluntary inpatient treatment. Every 15 minute checks for safety. -He does not meet criteria for major depression as mood symptoms are limited to a few days around stressors, and best diagnosis is depression NOS (rule out substance-induced depression versus major depression versus adjustment disorder with depressed mood). -Patient reports a previous good response to duloxetine and would like to resume it. He will need referral for outpatient psychiatric care. -Encourage group attendance and participation, work on healthy coping skills and discharge safety plan. -Family meeting with girlfriend. 12/19 - Continue duloxetine at 20mg. Discussed titration; however, patient feels sweating has become worse since taking duloxetine. Discussed watchful waiting at this time, will not yet increase dose. Pt agreeable with this - Attempted phone meeting with girlfriend today, ended abruptly with patient storming out of office - Coordinate aftercare 12/20 - Continue current treatment regimen - diaphoresis improved today. Can continue titration of duloxetine as necessary on an outpatient basis - Pt has had follow-up conversations with girlfriend that have reportedly gone better. Received report from social work that, although patient left meeting abruptly yesterday, that safety recommendations were reviewed and processed between girlfriend and social work. - Denying SI or safety concerns today - Continue attempts to coordinate aftercare (2) Anxiety: 12/18 -exacerbated by break-up with girlfriend. Encourage behavioral techniques for managing anxiety, hydroxyzine as needed. -Trial of duloxetine as above. 12/19 - As above - Encourage attendance of group and recreational programming and assist with d evelopment of healthy and effective coping strategies (3) Opioid use disorder, severe, dependence: 12/18 -Suboxone dose confirmed with Dr. Gilman's office; coordinate care regarding his ongoing illicit drug use and recommendations for inpatient rehab. Staff in his office informed today, and we will also send records. -Recovery protocol -Recommend inpatient rehab, which he is refusing to consider as he says he will lose his job. He is willing to consider IOP. Will asked the executive secretary social welfare to coordinate with his outpatient therapist, Irving Spaulding, regarding his recommendations. 12/19 - As above, still refusing rehab (4) Intravenous drug abuse, continuous: 12/18 -recommend inpatient rehab given severity of substance abuse; f/u with PCP (Dr. Gilman) for HIV testing if needed. 12/19 - As above, still refusing rehab (5) Alcohol abuse: 12/18 -history of alcohol withdrawal, drinking several times a week, intoxicated on presentation. -Patient denies history of withdrawal symptoms and is not currently experiencing symptoms, but we will continue to monitor and institute AWSS protocol if needed. -Recommendations for inpatient rehab vs IOP as above. -Avoid medications that are addictive or abusable and coordinate care with Dr. Gilman who is prescribing multiple controlled substances. -Brief intervention was offered and accepted Intervention was greater than 5 min in length. Brief interventions include: 1. Assess Readiness to Quit, 2. Advise: Help Pa tient to Reduce or Abstain from Alcohol, 3. Agree: Set Specific, Feasible Goals, 4. Assist: Anticipate barriers, Problem-Solving Solutions. Social work to 5. Arrange: Referrals to appropriate treatment. Summary of intervention: The patient is in precontemplation stage with regards to transtheoretical model of change. The patient is advised to decrease alcohol consumption due to depressant effects and risk of interactions with prescription medications. The patient will be provided with recovery materials to continue to education self on how to cope with their condition without drinking. 12/19 - Maintains he cannot consider inpatient D&A rehab as "I'll lose my job" - reports interest in continuing outpatient D&A counseling (6) Nicotine dependence, cigarettes, uncomplicated: Patch and gum as needed for cravings, smoking cessation education. (7) Hepatitis C: Follow-up with PCP as needed. (8) Olecranon bursitis of right elbow: 12/20 - Pt previously seen for this complaint in the ED on 12/06/2019 - effusion drained and patient was started on antibiotics. Aspirated fluid was sent for culture, but no growth present. - Will schedule TID dosing of ibuprofen 600mg to target inflammation - Pt provided with number for outpatient orthopedics, as he states he was to schedule with them for follow-up after initial 12/05 presentation. 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 Chief Complaint "Eh, I'm ok. This elbow really hurts though." Review of Systems Notes Constitutional: reports improvement in sweating, denies other complaints Cardiovascular: denied Respiratory: denied Gastrointestinal: denied Neurological: denied Musculoskeletal: reports pain and swelling of right elbow Psychiatric: [denies symptoms other than stated above] Total of at least 10 systems reviewed, pertinent positives as above and in HPI. Sleep Information Total Hours of Sleep: 8.25 Sleep Comments: pt appeared to sleep 4 hrs during evening shift. pt on q-15 minute checks Meal Information Percent Meal Consumed - Breakfast: 0 Percent Meal Consumed - Lunch: 100 Percent Meal Consumed - Dinner: 0 Nutrition Comment: Pt is sleeping Subjective Subjective Patient was seen & assessed and interval progress reviewed with nursing and social work. Staff report the patient complained of nausea and sweating last evening. He did not attend any evening groups, but instead slept. Pt was able to be scheduled with his Suboxone prescriber for an appointment on 12/22/2019. Reviewed attempted support meeting with girlfriend yesterday via phone. Pt lasted only a few minutes before leaving meeting; however, safety recommendations were reviewed between girlfriend and social work. Pt was seen today to assess progress since admission. Our conversation took place shortly after patient presented to the nurses' station to complain of swelling to his right elbow. Pt states the area had been drained recently in the ED and is now worsening. Ibuprofen was ordered to target pain and inflammation. This provider discussed his previous treatment. He said the effusion had been drained in the ED and fluid sent for culture. Pt was started on antibiotics at that time and followed up with orthopedics. Pt states that after his orthopedic appointment, he stopped taking his antibiotics (~5 days of a 10 day course). Pt was provided with the number for the orthopedic office from our nursing staff. We reviewed recommendation for scheduled ibuprofen to reduce inflammation, but that since the culture had no bacterial growth that this provider did not feel a course of antibiotics was indicated at this time. Pt verbalized understanding and was agreeable with this explanation. Pt states the remainder of his day went well yesterday. He states he was able to talk on the phone with his girlfriend after their meeting, admitting "everything's better now, of course, that's how it goes with her." Pt states that he does not have any new concerns. He continues to deny SI. He is anticipating discharge tomorrow. Physical Exam Psychiatric Orientation: alert, oriented x 3 and cooperative (superficially ) Apperance: appropriately dressed, appropriately groomed and appeared stated age Eye Contact: + fair eye contact Motor Behavior: steady gait and station and no abnormal motor movements Speech: normal rate/rhythm/volume of speech Affect: + blunted affect Mood: no depressed mood Thought Process: goal directed thought process and + concrete thought process Thought Content: reality based without delusions; no hopelessness and no worthlessness Suicidal Thoughts: denies suicidal thoughts and denies suicidal intent Homicidal Thoughts: denies homicidal thoughts Hallucinations: no auditory hallucinations and no visual hallucinations Cognition: recent memory grossly intact, attention grossly intact and language grossly intact Estimated Intelligence: consistent with education level Insight: + fair insight Judgement: + fair judgement Vital Signs (Past 24 Hours) Last Vital Signs Temp 36.7 C 12/21/19 06:15 Pulse 78 12/21/19 06:15 Resp 16 12/21/19 06:15 BP 115/80 12/21/19 06:15 Pulse Ox 95 12/19/19 03:02 Musculoskeletal Extremities: + elbow/forearm abnormality (swelling and erythema of right olecranon process - tenderness to palpation) Right Results & Data ([facility]) Laboratory Results Laboratory Results - last 24 hr 12/18/19 20:25 U Codeine Confrm GC/MS 53 H Ur Morphine (GC/MS) 3520 H Ur Hydrocodone (GC/MS) NEGATIVE Ur Norhydrocodone NEGATIVE Ur Noroxycodone NEGATIVE Urine Oxycodone (GC/MS) NEGATIVE U Oxymorphone GC/MS NEGATIVE Ur Hydromorphone (GC/MS) NEGATIVE Drug Screen Comment SEE NOTE Current Inpatient Medications Current Inpatient Medications: Current Inpatient Medications Acetaminophen (Acetaminophen 325 Mg Tab) 650 mg PO Q4H PRN PRN Reason: Headache or Minor Fever Stop: 01/18/20 03:26 Last Admin: 12/21/19 11:05 Dose: 650 mg Documented by: Al Hydrox/Mg Hydrox/Simethicone (Aluminum/Magnesium Susp 30 Ml Udc) 30 ml PO Q4H PRN PRN Reason: GI Upset Stop: 01/18/20 03:26 Bismuth Subsalicylate (Bismuth Subsalicylate Liqd 236 Ml) 15 ml PO PRN PRN PRN Reason: Loose Stool Stop: 01/18/20 03:26 Buprenorphine/Naloxone (Buprenorphine/Naloxone 8/2 Mg Tab) 0.5 tab SL BID ARTIE Stop: 01/18/20 20:59 Last Admin: 12/21/19 09:52 Dose: 0.5 tab Documented by: Duloxetine HCl (Duloxetine Hcl 20 Mg Cap) 20 mg PO QAM ARTIE Stop: 01/18/20 13:14 Last Admin: 12/21/19 09:52 Dose: 20 mg Documented by: Hydroxyzine HCl (Hydroxyzine Hcl 25 Mg Tab) 50 mg PO HSZ PRN PRN Reason: Insomnia Stop: 01/18/20 03:26 Last Admin: 12/20/19 21:01 Dose: 50 mg Documented by: Hydroxyzine HCl (Hydroxyzine Hcl 25 Mg Tab) 25 mg PO Q4H PRN PRN Reason: Anxiety Stop: 01/18/20 03:26 Last Admin: 12/19/19 16:32 Dose: 25 mg Documented by: Ibuprofen (Ibuprofen 600 Mg Tab) 600 mg PO Q6H ARTIE Stop: 01/20/20 11:14 Magnesium Hydroxide (Magnesium Hydroxide Susp 30 Ml Udc) 30 ml PO DAILY PRN PRN Reason: Constipation Stop: 01/18/20 03:26 Miscellaneous (Remove Nicoderm Patch) 1 ea N/A DAILY@0859 [facility] Stop: 01/18/20 08:58 Last Admin: 12/21/19 09:52 Dose: 1 ea Documented by: Nicotine (Nicotine 21 Mg/24 Hr Tdsy) 21 mg TD QAM [facility] Stop: 01/18/20 08:59 Last Admin: 12/21/19 09:52 Dose: 21 mg Documented by: Nicotine Polacrilex (Nicotine Polacrilex 2 Mg Gum) 1 piece MT PRN PRN PRN Reason: Nicotine Withdrawal Stop: 01/18/20 03:26 Sodium Chloride (Sodium Chloride 0.65% Na Soln 45 Ml (Jones)) 1 - 2 sprays NA PRN PRN PRN Reason: Nasal Dryness/Congestion Stop: 01/18/20 03:26 Mental Health & Subst Abuse Tx Therapist Name of Therapist: Chavez Spaulding Embosser Operator Name of Embosser Operator: none Post Discharge Appointments Primary Care Physician Name Of Family Doctor: Dr. Ml Mckeon Date of Appointment with PCP: 12/22/19 Time of Appointment with PCP: 2:30pm
[2019-12-21] MEDS ORDERED: IBUPROFEN 600 MG TAB PO SCH (12:00)
[2019-12-21] MEDS: IBUPROFEN 600 MG TAB PO SCH ×3 (13:05→20:16)
[2019-12-22] MEDS: DULOXETINE HCL 20 MG CAP PO SCH (09:46)
[2019-12-22] MEDS: IBUPROFEN 600 MG TAB PO SCH (09:47)
[2019-12-22] MEDS: BUPRENORPHINE/NALOXONE 8/2 MG TAB SL SCH (09:47)
[2019-12-22] MEDS: NICOTINE 21 MG/24 HR TDSY TD SCH (09:55)
--- NOTE | 2019-12-22 13:17 | Discharge Summary ---
Date of Service December 22, 2019 History of Present Illness The patient is known to us from previous hospitalizations on our unit (was recently in 08/2014), and was also seen on the consult service in 08/16/2019. In July, he was admitted to the hospitalist service for encephalopathy due to polysubstance overdose. UDS + methamphetamine, opiates, and THC. He indicated he had been using numerous recreational drugs over the past week, and overdose with intent to get high. He consistently denied suicidal ideation, and recommendations were for inpatient rehab, which he refused. He presented to the ER last night (12/18/2019) with police on a 302 warrant after he called the [facility] crisis line and reporting suicidal thoughts with a plan to overdose on drugs. He agreed to go to the walk-in center for an assessment, but did not present there or call back, and when crisis staff attempted to reach him they were unable to do so. Police were called to do a welfare check and issued a warrant. In the ER, the patient admitted to suicidal thoughts and a plan to overdose on opiates. He stated he relapsed on heroin several days prior, which led to a break-up with his girlfriend (who is with his child). He reported helplessness, hopelessness, difficulty functioning, not tending to ADLs, poor sleep and appetite, and racing thoughts, all worsening over the past week. He reports drinking 3 times a week, BAL 126.8, and longstanding substance abuse since age 15, stating "I've done everything." He used IV heroin on Wednesday, and thought it might have had fentanyl in it. He says that he has a medical marijuana card and get Suboxone from Dr. Gilman. 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 His girlfriend move out of their home on the day of presentation. Admission labs: Normal CBC, CMP, TSH, UA. MRSA screen negative. UDS + opiates, ethyl alcohol 126.8. He signed in voluntarily for treatment. He signed a release for Dr. Gilman, his Suboxone dose was confirmed this morning. On my assessment, he states he called the crisis line yesterday after an argument with his girlfriend, as he was upset and having urges to use heroin, and was afraid that he would accidentally overdosed. He states he has overdosed numerous times using drugs recreationally. He reports multiple stressors including frequent arguments with his girlfriend, who is and due in May. She also struggles with mental health and addiction issues. She left their apartment yesterday after the argument and is staying with family. He talked to her on the phone this morning, and states they continue to argue when he hung up on her, but hopes that they will reconcile. He continues to use heroin every few months, stating he has used approximately 3 times in the past year (but his reported timeline does not line up with information in his medical record); last use was Wednesday-Wednesday, 3 bundles of heroin, which he thinks may have been laced with fentanyl, based on what he has been hearing about heroin that is in the area. He last used meth in July, and is drinking several times a week as stated below. He states "3 relapses in a year is the best I have ever done in 22 years." He states that his mood is "good except for when we argue or I'm stressed." He reports feeling easily stressed and overwhelmed, with urges to use, anxiety, restlessness, racing thoughts, and agitation. He denies symptoms consistent with fabrizio, psychosis, and PTSD. He denies suicidal thoughts since admission, but states "sometimes I still wish I didn't come in, and did go get high." He is interested in medication "to level me out," and and referral for outpatient psychiatric care, but is refusing to consider inpatient rehab because he says he would then lose his job, and would have nowhere to live. He has not been on psychotropic medications (other than Suboxone) for about 2 years, and reports a good previous response to duloxetine. Physical Exam Psychiatric Orientation: alert, oriented x 3 and cooperative (superficially) Apperance: appropriately dressed (casually, in jeans and button down shirt), appropriately groomed and appeared stated age Eye Contact: good eye contact Motor Behavior: steady gait and station and no abnormal motor movements Speech: normal rate/rhythm/volume of speech Affect: euthymic affect and mood congruent with affect Mood: no depressed mood and no anxious mood "I'm feeling good" Thought Process: goal directed thought process and clear/coherent thought process Thought Content: reality based without delusions; no hopelessness and no worthlessness Suicidal Thoughts: denies suicidal thoughts, denies suicidal plan and denies suicidal intent Homicidal Thoughts: denies homicidal thoughts Hallucinations: no auditory hallucinations and no visual hallucinations Cognition: recent memory grossly intact, attention grossly intact and language grossly intact Insight: + fair insight Judgement: + fair judgement Vital Signs (Past 24 Hours) Last Vital Signs Temp 36.5 C 12/22/19 09:57 Pulse 71 12/22/19 09:57 Resp 16 12/22/19 09:57 BP 137/82 12/22/19 09:57 Pulse Ox 95 12/22/19 09:57 Principal Diagnosis - Depression, unspecified (likely substance-induced; rule out major depressive disorder, adjustment disorder with depressed mood, or intermittent explosive disorder). - Anxiety - Opioid use disorder, severe, dependence - Intravenous drug abuse, continuous - Alcohol abuse - Nicotine dependence, cigarettes, uncomplicated - Hepatitis C Psychiatric Data 39-year-old male with a history of polysubstance abuse, heroin addiction on Suboxone, depression and anxiety NOS who presented to the ER after he called the crisis line reporting suicidal thoughts with a plan to overdose in the context of an argument with his girlfriend whom he lives with. He was brought in by [employer] on a 302, but ultimately signed in voluntarily. His primary issue is substance abuse, and he reports mood and anxiety symptoms that occur when under stress, which is often caused by his addiction and legal problems. He reports a previous good response to duloxetine and would like to resume it. He remained on initial dose of 20mg for the duration of his visit due to complaints of nausea and diaphoresis. Possible medication side effects, but also cannot rule out that these were possible withdrawal symptoms given his significant substance abuse history. Although he is refusing rehab, he is willing to consider IOP and outpatient psychiatric care. He has an established D&A counselor and agreed to a referral to [facility] for PCP and psychiatric medication management. Pt also scheduled an appointment with orthopedics to follow-up on olecranon bursitis that he states is worsening - patient was provided with scheduled ibuprofen to target pain and inflammation until he is seen as an outpatient. A follow-up appointment was scheduled with his Suboxone prescriber to allow for timely follow-up in attempts to reduce risk of relapse on discharge. Phone meeting with girlfriend was attempted but limited by patient's low frustration tolerance. Treatment recommendations and safety precautions were explained to girlfriend. Pt had consistently denied SI over the course of his admission, and admitted to feeling safe to return home. Based on review of patient's case and their current presentation, risk of harm to self or others is no longer perceived to be acute. Management of symptoms on an outpatient basis seems the most appropriate and least restrictive setting. Pt seems appropriate for discharge with recommendation for consistent follow-up with outpatient psychiatr ic prescriber and therapist. Pt verbalized understanding of discharge plan reviewed and is agreeable with plan to be discharged home today, girlfriend and mother coming to provide transportation. Day of Discharge Assessment Patient's case was reviewed and discussed during treatment team. Staff report the patient attended limited groups yesterday, but has been cordial with staff and interactions with peers. He has aftercare appointments in place, with appointment with his Suboxone prescriber scheduled for this afternoon. Pt was seen today to assess readiness for discharge. Pt denies SI and reports feeling ready for discharge. We reviewed his current medication regimen. Specifically reviewing recommendation for scheduled ibuprofen to target elbow pain. Pt denied any additional physical concerns at this time. Pt expressed willingness to comply with recommended outpatient treatment. We reviewed scheduled appointments. Pt was also encouraged to complete his written safety plan prior to discharge. He was able to review "red flags" and coping skills with this provider. Pt denies any concerns related to discharge and feels his treatment goals have been met. ROS: Constitutional: denied Cardiovascular: denied Respiratory: denied Gastrointestinal: denied Neurological: denied Psychiatric: denies symptoms other than stated above Total of at least 10 systems reviewed, pertinent positives as above and in HPI. Transition of Care Transition Of Care Record: was reviewed with the patient Advance Directives Advance Directives Information Provided: Yes Advance Directives: No Mental Health Advance Directive: No Living Will: No Power of Digital Business Analyst: No Advance Directives Reason:: Declines as Mental Health Visit. Risk Factors Assessment Presenting risk factors reviewed on discharge. Precipitating stressors mitigated by: admission for inpatient psychiatric observation and treatment, initiation of medications to target symptoms, attendance of therapeutic treatment groups, development of healthy and effective coping strategies, involvement of outpatient supports, completion of a safety plan, confirmation of extra medications being secured, confirmation of guns and weapons being secured, discussion regarding substance abuse and effects on mental health diagnoses, treatment of medical conditions and education on diagnoses. Pt has demonstrated improvement in condition with regard to improvement in mood, resolution of SI, involvement of outpatient supports, coordination with outpatient therapist, and referrals for psychiatric aftercare. At this time, patient is requesting discharge and is no longer considered to be at acute risk of harm to himself or others. Pt will be discharged with recommendation for ongoing outpatient psychiatric treatment. Pt is at increased risk of harm to self or others when compared to the general population and there are several risk factors which are not likely to be mitigated in an inpatient treatment setting. 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 Hu for further education and mgmt of tobacco cessation) Total Time Total Time Spent: Greater Than 30 Minutes Total Time Includes: Examination of the patient, Discharge Planning, Medication Reconciliation and Communication with other providers Discharge Data Lab Results 12/18/19 12/18/19 12/18/19 20:25 20:25 20:25 WBC RBC Hgb Hct MCV MCH MCHC RDW Std Deviation RDW Coeff of Agustin Plt Count MPV Immature Gran % (Auto) Neut % (Auto) Lymph % (Auto) [place] % (Auto) Eos % (Auto) Baso % (Auto) Neut # (Auto) Lymph # (Auto) [place] # (Auto) Eos # (Auto) Baso # (Auto) Immature Gran # (Auto) Sodium Potassium Chloride Carbon Dioxide Anion Gap BUN Creatinine Est Cr Clr Drug Dosing Est GFR ( Amer) Est GFR (Non-Af Amer) BUN/Creatinine Ratio Glucose Calcium Total Bilirubin AST ALT Alkaline Phosphatase Total Protein Albumin Globulin Albumin/Globulin Ratio TSH Urine Color Yellow Urine Appearance Clear Urine pH 7.0 Ur Specific Inland 1.004 Urine Protein Negative Urine Glucose (UA) Negative Urine Ketones Negative Urine Blood Negative Urine Nitrite Negative Urine Bilirubin Negative Urine Urobilinogen Negative Ur Leukocyte Esterase Negative Nasal Screen MRSA (PCR) Salicylates Urine Opiates Screen Pos H U Codeine Confrm GC/MS 53 H Ur Morphine (GC/MS) 3520 H Ur Hydrocodone (GC/MS) NEGATIVE Ur Norhydrocodone NEGATIVE Ur Noroxycodone NEGATIVE Urine Oxycodone (GC/MS) NEGATIVE U Oxymorphone GC/MS NEGATIVE Ur Methadone, Qual Neg Ur Hydromorphone (GC/MS) NEGATIVE Acetaminophen Urine Barbiturates Neg Ur Phencyclidine (PCP) Neg U Amphetamin/Meth Scrn Neg MDMA (Ecstasy) Screen Neg U Benzodiazepines Scrn Neg Ur Cocaine Metabolite Neg U Marijuana (THC) Screen Neg Drug Screen Comment SEE NOTE Ethyl Alcohol mg/dL 12/18/19 12/18/19 12/18/19 20:56 20:56 20:56 WBC 7.57 RBC 4.79 Hgb 15.4 Hct 46.0 MCV 96.0 MCH 32.2 MCHC 33.5 RDW Std Deviation 44.2 RDW Coeff of Agustin 12.8 Plt Count 276 MPV 8.6 Immature Gran % (Auto) 0.1 Neut % (Auto) 62.6 Lymph % (Auto) 23.8 [place] % (Auto) 12.0 Eos % (Auto) 1.2 Baso % (Auto) 0.3 Neut # (Auto) 4.74 Lymph # (Auto) 1.80 [place] # (Auto) 0.91 H Eos # (Auto) 0.09 Baso # (Auto) 0.02 Immature Gran # (Auto) 0.01 Sodium 137 Potassium 3.8 Chloride 103 Carbon Dioxide 25 Anion Gap 10.0 BUN 10 Creatinine 0.89 Est Cr Clr Drug Dosing 121.0 Est GFR ( Amer) 126.6 Est GFR (Non-Af Amer) 109.2 BUN/Creatinine Ratio 11.1 Glucose 106 H Calcium 8.9 Total Bilirubin 0.6 AST 37 ALT 40 Alkaline Phosphatase 110 Total Protein 8.1 Albumin 3.7 Globulin 4.4 H Albumin/Globulin Ratio 0.8 L TSH 3.060 Urine Color Urine Appearance Urine pH Ur Specific [place] Urine Protein Urine Glucose (UA) Urine Ketones Urine Blood Urine Nitrite Urine Bilirubin Urine Urobilinogen Ur Leukocyte Esterase Nasal Screen MRSA (PCR) Salicylates 3.0 Urine Opiates Screen U Codeine Confrm GC/MS Ur Morphine (GC/MS) Ur Hydrocodone (GC/MS) Ur Norhydrocodone Ur Noroxycodone Urine Oxycodone (GC/MS) U Oxymorphone GC/MS Ur Methadone, Qual Ur Hydromorphone (GC/MS) Acetaminophen < 2 L Urine Barbiturates Ur Phencyclidine (PCP) U Amphetamin/Meth Scrn MDMA (Ecstasy) Screen U Benzodiazepines Scrn Ur Cocaine Metabolite U Marijuana (THC) Screen Drug Screen Comment Ethyl Alcohol mg/dL 12/18/19 12/19/19 20:56 00:15 WBC RBC Hgb Hct MCV MCH MCHC RDW Std Deviation RDW Coeff of Agustin Plt Count MPV Immature Gran % (Auto) Neut % (Auto) Lymph % (Auto) [place] % (Auto) Eos % (Auto) Baso % (Auto) Neut # (Auto) Lymph # (Auto) [place] # (Auto) Eos # (Auto) Baso # (Auto) Immature Gran # (Auto) Sodium Potassium Chloride Carbon Dioxide Anion Gap BUN Creatinine Est Cr Clr Drug Dosing Est GFR ( Amer) Est GFR (Non-Af Amer) BUN/Creatinine Ratio Glucose Calcium Total Bilirubin AST ALT Alkaline Phosphatase Total Protein Albumin Globulin Albumin/Globulin Ratio TSH Urine Color Urine Appearance Urine pH Ur Specific [place] Urine Protein Urine Glucose (UA) Urine Ketones Urine Blood Urine Nitrite Urine Bilirubin Urine Urobilinogen Ur Leukocyte Esterase Nasal Screen MRSA (PCR) Negative Salicylates Urine Opiates Screen U Codeine Confrm GC/MS Ur Morphine (GC/MS) Ur Hydrocodone (GC/MS) Ur Norhydrocodone Ur Noroxycodone Urine Oxycodone (GC/MS) U Oxymorphone GC/MS Ur Methadone, Qual Ur Hydromorphone (GC/MS) Acetaminophen Urine Barbiturates Ur Phencyclidine (PCP) U Amphetamin/Meth Scrn MDMA (Ecstasy) Screen U Benzodiazepines Scrn Ur Cocaine Metabolite U Marijuana (THC) Screen Drug Screen Comment Ethyl Alcohol mg/dL 126.8 H Hospital Course (1) Depression: 12/18 -continue voluntary inpatient treatment. Every 15 minute checks for safety. -He does not meet criteria for major depression as mood symptoms are limited to a few days around stressors, and best diagnosis is depression NOS (rule out substance-induced depression versus major depression versus adjustment disorder with depressed mood). -Patient reports a previous good response to duloxetine and would like to resume it. He will need referral for outpatient psychiatric care. -Encourage group attendance and participation, work on healthy coping skills and discharge safety plan. -Family meeting with girlfriend. 12/19 - Continue duloxetine at 20mg. Discussed titration; however, patient feels sweating has become worse since taking duloxetine. Discussed watchful waiting at this time, will not yet increase dose. Pt agreeable with this - Attempted phone meeting with girlfriend today, ended abruptly with patient storming out of office - Coordinate aftercare 12/20 - Continue current treatment regimen - diaphoresis improved today. Can continue titration of duloxetine as necessary on an outpatient basis - Pt has had follow-up conversations with girlfriend that have reportedly gone better. Received report from social work that, although patient left meeting abruptly yesterday, that safety recommendations were reviewed and processed between girlfriend and social work. - Denying SI or safety concerns today - Continue attempts to coordinate aftercare (2) Anxiety: 12/18 -exacerbated by break-up with girlfriend. Encourage behavioral techniques for managing anxiety, hydroxyzine as needed. -Trial of duloxetine as above. 12/19 - As above - Encourage attendance of group and recreational programming and assist with development of healthy and effective coping strategies (3) Opioid use disorder, severe, dependence: 12/18 -Suboxone dose confirmed with Dr. Gilman's office; coordinate care regarding his ongoing illicit drug use and recommendations for inpatient rehab. Staff in his office informed today, and we will also send records. -Recovery protocol -Recommend inpatient rehab, which he is refusing to consider as he says he will lose his job. He is willing to consider IOP. Will asked the social worker masters to coordinate with his outpatient therapist, Irving Spaulding, regarding his recommendations. 12/19 - As above, still refusing rehab (4) Intravenous drug abuse, continuous: 12/18 -recommend inpatient rehab given severity of substance abuse; f/u with PCP (Dr. Gilman) for HIV testing if needed. 12/19 - As above, still refusing rehab (5) Alcohol abuse: 12/18 -history of alcohol withdrawal, drinking several times a week, intoxicated on presentation. -Patient denies history of withdrawal symptoms and is not currently experiencing symptoms, but we will continue to monitor and institute AWSS protocol if needed. -Recommendations for inpatient rehab vs IOP as above. -Avoid medications that are addictive or abusable and coordinate care with Dr. Gilman who is prescribing multiple controlled substances. -Brief intervention was offered and accepted Intervention was greater than 5 min in length. Brief interventions include: 1. Assess Readiness to Quit, 2. Advise: Help Patient to Reduce or Abstain from Alcohol, 3. Agree: Set Specific, Feasible Goals, 4. Assist: Anticipate barriers, Problem-Solving Solutions. Social work to 5. Arrange: Referrals to appropriate treatment. Summary of intervention: The patient is in precontemplation stage with regards to transtheoretical model of change. The patient is advised to decrease alcohol consumption due to depressant effects and risk of interactions with prescription medications. The patient will be provided with recovery materials to continue to education self on how to cope with their condition without drinking. 12/19 - Maintains he cannot consider inpatient D&A rehab as "I'll lose my job" - reports interest in continuing outpatient D&A counseling (6) Nicotine dependence, cigarettes, uncomplicated: Patch and gum as needed for cravings, smoking cessation education. (7) Hepatitis C: Follow-up with PCP as needed. (8) Olecranon bursitis of right elbow: 12/20 - Pt previously seen for this complaint in the ED on 12/06/2019 - effusion drained and patient was started on antibiotics. Aspirated fluid was sent for culture, but no growth present. - Will schedule TID dosing of ibuprofen 600mg to target inflammation - Pt provided with number for outpatient orthopedics, as he states he was to schedule with them for follow-up after initial 12/05 presentation. - Will continue to monitor at this time 12/21 - Pt scheduled appointment with orthopedics to follow-up on this issue after discharge Mental Health & Subst Abuse Tx Psychiatrist Name of Psychiatrist: Juanita Guerrero Psychiatrist's Date of Appointment with Psychiatrist: 02/16/20 Time of Appointment with Psychiatrist: 1:30 Psychiatric Appointment Comment: [address] [facility], Be sure to wear a mask Psychiatrist Release of Information: Obtained, Reviewed and Signed Therapist Name of Therapist: Chavez Spaulding Therapist's Phone Number: [phone] Therapy Appointment Comment: He was notified of dischage and will work you in soon Therapist Release of Information: Obtained, Reviewed and Signed Director Physical Name of Director Physical: none Post Discharge Appointments Primary Care Physician Name Of Family Doctor: Dr. Mayte Wilder Primary [facility] Date of Appointment with PCP: 01/11/20 Time of Appointment with PCP: 1:40pm Provider Appointment Comment: [address] [facility], Be sure to wear a mask Primary Care Release of Information: Obtained, Reviewed and Signed Smoking Cessation Counseling Tobacco Cessation Medication Prescribed at Discharge: Offered & Prescribed Other #1: Name of Aftercare Appointment: [facility] Dr. Bull Phone Number of Aftercare Appointment: [phone] Date of Aftercare Appointment: 12/22/19 Time of Aftercare Appointment: 2:30pm Release of Information Aftercare Appointment: Obtained, Reviewed and Signed Contact Information Discharge Discharge Address: [address] [place] [id number] Discharge Plan Discharge Items Patient Disposition: Home - Self-Care Reason For Visit: MDD Discharge Diagnosis: - Depression - Anxiety - Substance Abuse Condition on Discharge: Fair Activity: Resume your previous activity Non-emergency contact: Primary Care Provider, Psychiatrist and Therapist Call non-emergency contact if: you have any medication questions and your symptoms worsen Follow-up/Referrals: PCP,NO [Primary Care Provider] - Diet: Regular Addtl Attending Provider Instructions: SPECIAL CARE INSTRUCTIONS: 1. Follow through with your scheduled aftercare appointments. If unable to keep an appointment, please call to reschedule. 2. Take your medication only as prescribed. Medication should not be changed or stopped without the approval of your doctor. In the event of worsening symptoms or concerns about side effects, contact your doctor immediately. 3. Utilize new healthy coping skills, anger management skills, and stress management skills learned during your hospitalization. Journal feelings and process them with a support person. Identify stressors or situations that may result in relapse, deterioration or inappropriate behaviors and develop a plan to deal with those issues. 4. If your coping skills are ineffective and you are in crisis, contact your outpatient providers for direction. If unable to reach your providers, please call the [facility] CRISIS LINE AT , go to the [facility] walk-in center at [address], [address], [place], or go to the closest Emergency Room. 5. Avoid alcohol and un-prescribed drugs. 6. You have been provided with the Mental Health Advance Directives Pamphlet for your review. AFTERCARE APPOINTMENTS: * Please call your insurance company prior to your scheduled appointment to confirm your aftercare providers are covered. Take your insurance information to your appointments. WHO TO CALL AND WHEN: Medical Emergencies: For questions or emergencies related to your hospital stay, please contact the Inpatient [facility] at [phone]. A intake clinician is on-call 19/10 for the [facility] for emergencies At any time you feel your situation is an emergency, you may also call 911 immediately. Pending Studies at Discharge: No Stand-Alone Forms: My [facility] [employer], Smoking Cessation, Suicide Prevention Resources Medications and DC Order Prescriptions: New nicotine [Nicoderm CQ] 21 mg/24 hr Patch 24 Hour 21 mg transdermal QAM 30 Days Qty: 28 RF: 0 ibuprofen 600 mg Tablet 600 mg PO TID 10 Days Qty: 30 RF: 0 duloxetine 20 mg Capsule,Delayed Release(Dr/Ec) 20 mg PO QAM 30 Days Qty: 30 RF: 0 Continued buprenorphine-naloxone 8-2 mg tablet, sublingual 0.5 tab SUBLINGUAL BID RF: 0 Discharge Orders: Discharge Order (Routine); Ordered 12/22/19 Ordered By: Krysta Ledesma Admission Data Admit Date/Time: 12/19/19 02:31 Attending Provider: Teagan Godwin Admit Provider: Ashanti Shelton Primary Care Provider: PCP,NO Other Interventions: Discharge Summary Assessment (RN) Last Done: 12/22/19 09:57 PSY Interdisciplinary Discharge Planning Last Done: 12/22/19 10:07 Coding Level of Care Code 48232 D/C day mgmt > 30 min Diagnoses Depression F32.9 Anxiety F41.9 Opioid use disorder, severe, dependence F11.20 Intravenous drug abuse, continuous F19.10 Alcohol abuse F10.10 Nicotine dependence, cigarettes, uncomplicated F17.210 Hepatitis C B19.20 Olecranon bursitis of right elbow M70.21
== END 2019-12-22 10:30 | disposition home or self-care (01) | DRG 881 ==
LOC: ED 20:04 → 3S 12-19 02:31